=== PATIENT | male | born 1950 | race Caucasian/White ===

== ENCOUNTER 2020-09-02 10:22 | Outpatient (CLI) | payer MEDICARE, SELFPAY ==
--- NOTE | ~2020-09-02 | XR_ITS ---
EXAMINATION: XR hip BI wo pelvis EXAM DATE: 09/02/2020 10:46 INDICATION: Chronic bilateral hip pain. TECHNIQUE: Each hip imaged independently (separate right and also left hip) 'frog leg' and frontal p rojections for interpretation. There is no prior study for comparison. FINDINGS: No radiographic evidence of hip avascular necrosis. There is mild to moderate symmetric bi lateral hip primary osteoarthritis. 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 There are no acute f ractures or dislocations identified. There is no subcutaneous gas. The soft tissue is unremarkable. There are no radiopaque foreign bodies. IMPRESSION: Mild to moderate bilateral hip osteoarthritis. Reviewed, dictated and finalized at location B.
--- NOTE | ~2020-09-02 | XR_ITS ---
EXAMINATION: XR lumbar spine 2-3V EXAM DATE: 09/02/2020 10:46 INDICATION: Chronic low back pain. TECHNIQUE: Lumber spine frontal, lateral, lateral L5-S1 projections for interpretation. There is no prior study for comparison. FINDINGS: Mild to moderate diffuse lumbar disc disease. There is 2 to 3 mm anterolisthesis L4 on L5. No spondylolysis. There is 2-3 mm retrolisthesis L1 on L2 and L2 on L3. Moderate-sized lower thoracic bridging endplate osteophytes, diffuse idiopathic skeletal hyperostosis. Mild upper lumbar, moderate mid and lower lumbar facet arthropathy. Mild to moderate abdominal aortic and iliac arterial sclerot ic disease. Mild lumbar levoscoliosis. Sacrum, sacroiliac joints, sacral arcuate lines are intact. Pa raspinal soft tissue is unremarkable. There are no bony erosions identified. IMPRESSION: 1. Mild to moderate lumbar disc disease. 2. Moderate mid and lower lumbar facet arthropathy. 3. Mild levoscoliosis. Reviewed, dictated and finalized at location B.
== END 2020-09-02 10:23 | disposition home or self-care (01) ==
LOC: CHSIMG 10:24
PROVIDERS: PCP Internal Medicine; Visit Provider Internal Medicine
DX: M54.5 Low back pain (principal); M25.552 Pain in left hip; M25.551 Pain in right hip; M16.0 Bilateral primary osteoarthritis of hip; M47.816 Spondylosis without myelopathy or radiculopathy, lumbar region
CPT/HCPCS: 72100; 73521

== ENCOUNTER 2021-09-13 09:03 | Outpatient (CLI) | payer MEDICARE, SELFPAY ==
--- NOTE | ~2021-09-13 | MR_ITS ---
EXAMINATION: MR hip RT wo con DATE: 09/13/2021 10:35 INDICATION: Low back pain TECHNIQUE: Magnetic resonance imaging (MRI) of the right hip was performed without intravenous contr ast. Sequences included full-field axial PD-weighted FS FSE and T1-weighted FSE, coronal of the pelvi s with PD-weighted FS FSE, small field of view of the right hip with axial PD-weighted FS FSE, sagit chandni PD-weighted FS FSE and coronal PD weighted FS FSE. Additional radial T1-weighted FGR oriented ort hogonal to the acetabular rim were obtained for evaluation of the labrum. COMPARISON: Radiographs dated 09/02/2020 FINDINGS: Bones/labrum/cartilage: Bone alignment is normal. No fracture, avascular necrosis or pathologic marrow replacing process. Mo derate osteoarthritis at the right hip with partial thickness cartilage loss resulting in nonuniform joint space narrowing at the right hip. Disease greatest anterosuperiorly. There is scattered subarti cular cystic change along the along the anterosuperior and posterosuperior right acetabulum with more extensive edema-like subarticular marrow signal change at the right acetabulum. Small marginal osteo phytes about the right femoral head. There is diffuse degenerative tearing of the right acetabular la bryon. There is a large para labral cyst which appears to arise near the 12:00 position of the superol ateral labrum which measures 3.2 cm AP, 1.2 cm medial to lateral and 2.2 cm craniocaudal height. A se josseline mild osteoarthritis at the left hip which is not diagnostically evaluated on the larger images. Mild to moderate lumbar spondylosis. Fluid: Symmetric physiologic amount of fluid within both hip joints. Soft tissues: From the small lenticular T1 hyperintense intramuscular lipoma within the proximal left abductor long us muscle belly. Otherwise normal and symmetric muscle bulk and signal in the pelvis and visualized p roximal thighs. Mild tendinopathy without discrete tear at the bilateral gluteus medius tendons and b ilateral semitendinosus/biceps femoris tendons. The bilateral semimembranosus, remaining gluteal and bilateral iliopsoas tendons are normal. There is mild diverticulosis along the proximal sigmoid colon without adjacent inflammatory change to suggest diverticulitis. Limited evaluation of visceral organ s of the pelvis is otherwise unremarkable. No pathologically enlarged pelvic/inguinal lymphadenopath y. IMPRESSION: 1. Moderate right hip osteoarthritis with diffuse degenerative tearing of the right acetabular labrum and large associated para labral cyst. 2. Mild tendinopathy without discrete tear at the bilateral gluteus medius and proximal biceps femori s/semitendinosus tendons. Reviewed, dictated and finalized at location A. IMPRESSION: 1. Moderate right hip osteoarthritis with diffuse degenerative tearing of the r ight acetabular labrum and large associated para labral cyst. 2. Mild tendinopathy without discrete tear at the bilateral gluteus medius and proximal biceps femoris/semitendinosus tendons.
--- NOTE | ~2021-09-13 | MR_ITS ---
EXAMINATION: MR lumbar spine wo con DATE: 09/13/2021 10:35 INDICATION: Low back pain. TECHNIQUE: Magnetic resonance imaging (MRI) of the lumbar spine was performed without intravenous con trast. Sequences included sagittal T2-weighted FSE, sagittal T2-weighted FS FSE, sagittal T1-weighted FSE, and axial T2-weighted FSE. COMPARISON: Lumbar spine radiographs 09/02/2020 FINDINGS: There is 3 mm retrolisthesis of L1 on L2 and L2 on L3 and 3 mm anterolisthesis of L4 on L5. Vertebral body heights are normal. There is mildly decreased disc height from T12-L1 through L4-L5 a nd moderately decreased disc height at L5-S1 with endplate remodeling. Epidural lipomatosis is noted. The distal spinal cord signal intensity is normal. The conus medullaris is at T12-L1. The following disc levels are specifically discussed: T12-L1: The disc is bulging. There is moderate bilateral facet joint osteoarthritis. There is mild le ft neural foraminal stenosis. There is mild central canal stenosis. L1-L2: The disc is bulging and has an annular fissure. There is mild bilateral facet joint osteoarthr itis. There is mild bilateral neural foraminal stenosis. There is mild central canal stenosis. L2-L3: The disc is bulging and has an annular fissure. There is mild bilateral facet joint osteoarthr itis. There is mild right and moderate left neural foraminal stenosis. There is moderate central zohra l stenosis. L3-L4: The disc is bulging and has an annular fissure. There is severe bilateral facet joint osteoart hritis. There is mild right and moderate left neural foraminal stenosis. There is severe central zohra l stenosis. L4-L5: The disc is bulging and has an annular fissure. There is severe bilateral facet joint osteoart hritis. There is mild right and moderate left neural foraminal stenosis. There is severe central zohra l stenosis. L5-S1: The disc is bulging and has an annular fissure. There is severe bilateral facet joint osteoart hritis. There is mild right and moderate left neural foraminal stenosis. There is severe central zohra l stenosis. IMPRESSION: 1. Severe lumbar spondylosis. Reviewed, dictated and finalized at location B.
== END 2021-09-13 09:04 | disposition home or self-care (01) ==
LOC: CHSIMG 09:05
PROVIDERS: PCP Internal Medicine; Visit Provider Internal Medicine
DX: M54.16 Radiculopathy, lumbar region (principal); M25.551 Pain in right hip
CPT/HCPCS: 72148; 73721

== ENCOUNTER 2021-10-12 09:53 | Outpatient (RCR) | payer MEDICARE, SELFPAY ==
--- NOTE | 2021-10-12 10:57 | PTOPEVAL ---
Thank you for referring Cayetano Victor to [facility].? The patient is scheduled to be seen for therapy? ____x/week for ___ weeks. Please review, sign, date and return this plan of care SHELLI. I agree with and certify that the following plan of care is medically necessary. Referring Physician Date Admitting Provider: Attending Provider: Diana Villa MD Referring Provider: *PT Outpatient Evaluation Start: 10/12/21 10:08 Freq: Status: Active Protocol: Document 10/12/21 10:10 [facility] (Rec: 10/12/21 10:57 [facility] [id number]) Therapy Assessment Status Assessment Status Assessment Status Evaluation Evaluation Information Problem Diagnosis DJD/DDD lumbar spine, R hip pain Onset 09/26/21 Subjective Information patient reports he injured hi Query Text:As Reported By Patient/ hip about 9 years ago. he Family reports he has pain in the groin of the R hip. he reports his pain comes and goes. he reports some days he is able to go all day without pain, and then other days he has to apply pressure to his anterior hip to complete activities. he reports turning/twisting causes increased pain in the R hip. he reports he has symptoms in both of his feet, worse on the R. he reports he has tingling and numbness in his feet. he reports also in the L he will feel needle stick pain in the L foot. he reports he uses ice and heat and this helps. he has had an MRI of the hip and the lower back. Prior Level of Function Comments Additional Prior Level of Function he reports he is limited in Comments his walking distance and endurance most days. he reports he feels he is forcing himself to walk. he reports up to two years ago he was able to do some work on the side. he reports he was also climb ladders. he reports he also now has trouble walking on uneven surfaces and walking his cul [place] sac at home that
--- NOTE | 2021-12-07 06:49 | PCPTNOTE ---
Mr. Victor attended a total of 3 treatment sessions from 10/12/21 to 10/19/21. He has failed to return to the clinic and will be discharged from our care at this time. Refer to pt. last daily note for d/c status.
== END 2021-10-19 10:14 | disposition home or self-care (01) ==
LOC: CHSPT 09:53
PROVIDERS: PCP Internal Medicine; Visit Provider Internal Medicine
DX: M47.816 Spondylosis without myelopathy or radiculopathy, lumbar region (principal); M25.551 Pain in right hip; M54.16 Radiculopathy, lumbar region; M25.552 Pain in left hip
CPT/HCPCS: 97014; 97110; 97161; G0283

== ENCOUNTER 2021-12-27 10:48 | Outpatient (CLI) | payer MEDICARE, SELFPAY ==
--- NOTE | ~2021-12-27 | XR_ITS ---
XR hip RT min 2V 12/27/2021 11:13 Indication: Right hip pain after fall Procedure: 2 views right hip Comparison: 09/02/2020 Findings: There is moderate osteoarthritis of the right hip. No fracture, subluxation or dislocation. No significant soft tissue abnormality. No foreign bodies. Impression: 1: No acute fracture. 2: Moderate osteoarthritis of the right hip. Reviewed, dictated and finalized at location B. Impression: 1: No acute fracture. 2: Moderate osteoarthritis of the right hip.
== END 2021-12-27 10:49 | disposition home or self-care (01) ==
PROVIDERS: PCP Internal Medicine; Visit Provider Internal Medicine
DX: M25.551 Pain in right hip (principal); M16.11 Unilateral primary osteoarthritis, right hip
CPT/HCPCS: 73502

== ENCOUNTER 2022-02-14 09:49 | Outpatient (CLI) | payer MEDICARE, SELFPAY ==
--- NOTE | ~2022-02-14 | XR_ITS ---
EXAMINATION: XR lg joint inject/asp w image DATE: 02/14/2022 11:03 INDICATION: Right hip pain. TECHNIQUE: A time-out was performed to verify the patient's name, date of , and procedure to b e performed. The procedure including the risks, benefits, and alternatives was discussed with the pat ient. Risks discussed included bleeding and infection. The patient understood the risks and agreed to proceed. The skin overlying the right hip joint was prepped and draped in usual sterile fashion. A nesthetic was administered with 1% lidocaine subcutaneously. A 22 G needle was advanced under fluoro scopic guidance into the joint. Subsequently, injectate consisting of 5 mL 1% lidocaine, 1 mL 40 mg/ mL Kenalog, and 1 mL 4 mg/mL dexamethasone was instilled. The needle was removed and the entry site was cleaned and dressed. There were no immediate complications. Fluoroscopy exposure time was 0.1 mi nutes. The total number of images was 1. FINDINGS: Real-time fluoroscopy demonstrates the needle in the right hip joint. Patient's pain prior to procedure:8/10. Patient's pain following the procedure: 3/10. IMPRESSION: 1. Fluoroscopy guided right hip joint injection of local anesthetic and steroid with decrease in the patient's presenting pain. Reviewed, dictated and finalized at location A. [employer]
== END 2022-02-14 09:50 | disposition home or self-care (01) ==
PROVIDERS: PCP Internal Medicine; Visit Provider Internal Medicine
DX: M25.551 Pain in right hip (principal)
CPT/HCPCS: 20610; 77002; J1100; J3301

== ENCOUNTER 2022-07-25 10:01 | Outpatient (CLI) | payer MEDICARE, SELFPAY ==
[2022-07-25 10:16] LABS: Basophils Absolute Auto 0.03 K/mm3 (0.00-0.10); Basophils Percent Auto 0.4 % (0.0-1.0); Eosinophils Absolute Auto 0.34 K/mm3 (0.02-0.50); Eosinophils Percent Auto 4.8 % (1.0-6.0); Hematocrit 43.1 % (37.0-46.0); Hemoglobin 13.9 g/dL (12.4-15.3); Immature Granulocyte Absolute 0.04 K/mm3 (0.00-0.00); Immature Granulocyte Percent A 0.6 % (0.0-0.0); Lymphocytes Absolute Auto 1.29 K/mm3 (1.10-4.50); Lymphocytes Percent Auto 18.2 % (18.0-42.0); Mean Corpuscular HGB Conc 32.3 g/dL (32.0-36.0); Mean Corpuscular Hemoglobin 26.5 pg (27.0-31.0); Mean Corpuscular Volume 82.3 fL (78.0-102.0); Mean Platelet Volume 10.4 fl (8.7-11.0); Monocytes Absolute Auto 0.68 K/mm3 (0.10-0.90); Monocytes Percent Auto 9.6 % (2.0-11.0); Neutrophils Absolute Auto 4.7 K/mm3 (1.7-7.2); Neutrophils Percent Auto 66.4 % (50.0-70.0); Platelet Count Result 210 K/mm3 (150-420); Red Blood Count 5.24 M/mm3 (4.70-6.10); Red Cell Distribution Width 14.3 % (11.6-14.4); White Blood Count 7.1 K/mm3 (4.8-10.8)
--- NOTE | 2022-07-25 10:20 | ECG_ITS ---
Measurements Intervals Gilbert Rate: 55 P: 53 IA: 168 QRS: 8 QRSD: 89 T: -1 QT: 405 QTc: 390 Interpretive Statements SINUS BRADYCARDIA MINIMAL VOLTAGE CRITERIA FOR LVH, CONSIDER NORMAL VARIANT [MEETS CRITERIA IN ONE OF: R(aVL), S(V1), R(V5), R(V5/V6)+S(V1)] POSSIBLE INFERIOR MYOCARDIAL INFARCTION , PROBABLY OLD [30 ms Q WAVE IN II/aVF] ABNORMAL ECG NO PREVIOUS ECG AVAILABLE FOR COMPARISON Electronically Signed On 07-25-2022 14:27:24 CDT by Malcolm Beal M.D.
[2022-07-25 10:22] LABS: Appearance Urine Clear (Clear); Bilirubin Urine Negative (Negative); Blood Urine 1+ (Negative); Color Urine Yellow (Yellow); Glucose Urine UA Negative (Negative); Ketones Urine Negative (Negative); Leukocyte Esterase Ur Negative LEU/UL (Negative); Nitrate Urine Negative (Negative); Protein Urine Negative (Negative); Specific Grav Ur 1.025 (1.010-1.020); Urobilinogen Urine 0.2 mg/dL (0.2-1.0)
[2022-07-25 10:30] LABS: Add Urine Microscopic? YES; Bacteria Urine Rare /hpf; Mucus Urine Few /lpf; RBC Urine 0-2 /hpf (0-2); WBC Urine None seen /hpf (0-3)
[2022-07-25 10:42] LABS: Anion Gap 10 mmol/L (8-16); Blood Urea Nitrogen 21 mg/dL (7-18); Calcium 9.2 mg/dL (8.5-10.1); Carbon Dioxide 29 mmol/L (21-32); Chloride 103 mmol/L (98-108); Estimated Glomerular Filt Rate > 60; Glucose 97 mg/dL (70-99); Osmolality Calculated 297 mOsm/kg (285-295); Potassium 4.2 mmol/L (3.5-5.1); Sodium 142 mmol/L (136-145)
== END 2022-07-25 10:02 | disposition home or self-care (01) ==
LOC: CHSLAB 10:03
PROVIDERS: PCP Internal Medicine; Visit Provider Orthopaedic Surgery
DX: I10 Essential (primary) hypertension (principal); M17.11 Unilateral primary osteoarthritis, right knee; R94.31 Abnormal electrocardiogram [ECG] [EKG]; R00.1 Bradycardia, unspecified
CPT/HCPCS: 36415; 80048; 81001; 85025; 93005

== ENCOUNTER 2022-09-04 09:22 | Outpatient (CLI) | payer MEDICARE, SELFPAY ==
--- NOTE | 2022-09-04 09:28 | ECHO_ITS ---
Patient Info Name: Cayetano Victor Age: 72 years : 1950 Gender: Male HR: 56 bpm BP: 186 / 103 mmHg Heart Rhythm: Sinus Rhythm Technical Quality: Fair Exam Date: 09/04/2022 9:23 AM Exam Location: [facility] [place] Patient Status: Outpatient Admit Date: 09/04/2022 Staff Ordering Physician: Cristhian De La O DO Economic History Teacher: Joel Tidwell RDCS Attending Provider: Cristhian De La O DO Referring Physician: Jairon NAJERA; Exam Type: CA echo dop color flow w con Study Info Indications - dyspnea Complete two-dimensional, color flow and Doppler transthoracic echocardiogram is performed. Summary 1. Complete two-dimensional, color flow and Doppler transthoracic echocardiogram is performed. 2. Left ventricular chamber dimension is normal. 3. Left ventricular systolic function is normal, estimated at 60-65%. 4. There is mild concentric increased left ventricular wall thickness. 5. The left ventricular diastolic function is abnormal. 6. E/e' 12 is mildly elevated. 7. Left atrial chamber dimension is mildly enlarged. 8. There is mild aortic valve sclerosis. 9. There is mild aortic valve regurgitation. 10. There is trace tricuspid valve regurgitation. 11. No pulmonary hypertension, estimated pulmonary arterial systolic pressure is 21 mmHg. Left Ventricle E/e' 12 is mildly elevated. Left ventricular chamber dimension is normal. Left ventricular systolic function is normal, estimated at 60-65%. There is mild concentric increased left ventricular wall thickness. The left ventricular diastolic function is abnormal. Right Ventricle Right ventricular systolic function is normal and with normal TAPSE 2.7 cm. Right ventricular chamber dimension is normal. Left Atria Left atrial chamber dimension is mildly enlarged. Right Atria Right atrial chamber dimension is normal. Aortic Valve The aortic valve is trileaflet. There is mild aortic valve sclerosis. There is no aortic valve stenosis. There is mild aortic valve regurgitation. Pulmonic Valve There is no pulmonic regurgitation. Mitral Valve There is no mitral valve stenosis. There is no mitral valve regurgitation. Tricuspid Valve There is trace tricuspid valve regurgitation. No pulmonary hypertension, estimated pulmonary arterial systolic pressure is 21 mmHg. Pericardium/Pleural There is no pericardial effusion. Inferior Vena Cava Normal inferior vena cava with >50% collapse upon inspiration consistent with normal right atrial pressure, 5 mmHg. Aorta The aortic root size at the sinus of Valsalva is normal. Left Ventricular Outflow Tract Name Value Normal LVOT 2D LVOT Diameter 2.25 cm LVOT Doppler LVOT Peak Velocity 100.28 cm/s LVOT Peak Gradient 4 mmHg LVOT Mean Gradient 2 mmHg LVOT VTI 30.66 cm LVOT VTI/AV VTI Ratio 0.81 LVOT Stroke Volume 121.83 ml Pulmonic Valve Name Value Normal RVOT Doppler
== END 2022-09-04 09:23 | disposition home or self-care (01) ==
LOC: CHSIMG 09:23
PROVIDERS: PCP Internal Medicine; Visit Provider Internal Medicine Cardiovascular Disease
DX: R06.09 Other forms of dyspnea (principal); I35.1 Nonrheumatic aortic (valve) insufficiency
CPT/HCPCS: 93306; C8929

== ENCOUNTER 2022-09-18 07:26 | Outpatient (CLI) | payer MEDICARE, SELFPAY ==
--- NOTE | 2022-09-18 07:30 | EST_ITS ---
Patient Info Name: Cayetano Victor Age: 72 years : 1950 Gender: Male Ht: 65 in Wt: 231 lbs BSA: 2.24 m2 HR: 63 bpm BP: 144 / 71 mmHg Heart Rhythm: Sinus Rhythm Technical Quality: Excellent Exam Date: 09/18/2022 8:50 AM Exam Location: [facility] Patient Status: Outpatient Admit Date: 09/18/2022 Staff Ordering Physician: Cristhian De La O DO Attending Provider: Diana Villa MD Exercise Technologist: Mckenna Hoffman CRT Exercise Physician: Marlin Hamilton CEP Exam Type: CA stress luz maria w NM Study Info Indications PreOp - Dyspnea - A nuclear stress test was performed. History/Risk Factors Hypertension: Yes Dyslipidemia: Yes Tobacco Use: Current - Frequency Unknown History/Risk Factors Dyslipidemia. CAD. Hypertension. Summary 1. 1. Negative lexiscan stress test for ischemic ST changes by ECG criteria. 2. 2. Baseline hypertension. 3. 3. Nuclear scan to follow and will be reported separately. Please correlate with it. Protocol: LEXISCAN Stress ECG Details Stage: REST Duration (min): 1 min : 17 sec HR (bpm): 55 SBP (mmHg): 144 DBP (mmHg): 71 Stage: REST Duration (min): 1 min : 34 sec HR (bpm): 52 SBP (mmHg): 144 DBP (mmHg): 71 Stage: REST Duration (min): 1 min : 56 sec HR (bpm): 57 SBP (mmHg): 144 DBP (mmHg): 71 Stage: REST Duration (min): 2 min : 17 sec HR (bpm): 54 SBP (mmHg): 144 DBP (mmHg): 71 Stage: REST Duration (min): 2 min : 52 sec HR (bpm): 56 SBP (mmHg): 144 DBP (mmHg): 71 Stage: REST Duration (min): 7 min : 24 sec HR (bpm): 59 SBP (mmHg): 144 DBP (mmHg): 71 Stage: STAGE 1 Duration (min): 0 min : 16 sec HR (bpm): 58 SBP (mmHg): 144 DBP (mmHg): 71 Stage: RECOVERY Duration (min): 0 min : 43 sec HR (bpm): 71 SBP (mmHg): 144 DBP (mmHg): 71 Stage: RECOVERY Duration (min): 1 min : 43 sec HR (bpm): 78 SBP (mmHg): 144 DBP (mmHg): 71 Stage: RECOVERY Duration (min): 2 min : 43 sec HR (bpm): 79 SBP (mmHg): 133 DBP (mmHg): 73 Stage: RECOVERY Duration (min): 3 min : 43 sec HR (bpm): 76 SBP (mmHg): 135 DBP (mmHg): 75 Stage: RECOVERY Duration (min): 4 min : 43 sec HR (bpm): 74 SBP (mmHg): 135 DBP (mmHg): 75 Stage: RECOVERY Duration (min): 5 min : 43 sec HR (bpm): 73 SBP (mmHg): 148 DBP (mmHg): 79 Stage: RECOVERY Duration (min): 6 min : 4 sec HR (bpm): 76 SBP (mmHg): 148 DBP (mmHg): 79 Rest HR: 59 bpm Peak HR: 81 bpm Rest Sys BP: 144 mmHg Peak Sys BP: 148 mmHg Max Pred HR: 148 bpm % Max Pred HR: 55 % Target HR: 126 bpm Max RPP: 11,988 bpm*mmHg BP Response: Resting hypertension/appropriate response Termination Reason: Completed Protocol Cardiac Symptoms: Dyspnea Total Time: 0 min : 16 sec Rest Escobar BP: 71 mmHg Peak Escobar BP: 79 mmHg Total Dose: 0.4 mg Resting ECG Sinus bradycardia, delayed precordial R/S trans
--- NOTE | 2022-09-18 13:18 | P.NST_ITS ---
Nuclear Stress Test INDICATIONS Indications: Dyspnea PROCEDURE Procedure Performed: Myocardial Perf Spect-Multi Procedure: Patient underwent a lexiscan stress test and immediately was injected with 33.1 mCi of cardiolyte. Multiple tomographic images were obtained. These are of good quality. There is evidence of small size mild severity anterior perfusion defect and a small size, mild severity basal to mid lateral perfusion defect with stress imaging. A separate resting images were obtained after patient was injected with 10.5 mCi of cardiolyte. Multiple tomographic images were obtained. These are of good qu ality. There is evidence of small size mild severity anterior perfusion defect and a small size, mild severity basal to mid lateral perfusion defect with rest imaging. CONCLUSION Conclusion: 1. Myocardial perfusion imaging demonstrating fixed small size anterior and fixed small basal to mid lateral perfusion defects suggestive of attenuation artifacts. 2. No evidence of reversible ischemia. 3. Left ventriculogram demonstrates normal measured ejection fraction of 63% with no wall motion abnormalities. 4. TID 0.94 is normal.
== END 2022-09-18 07:27 | disposition home or self-care (01) ==
LOC: CHSIMG 07:27
PROVIDERS: PCP Internal Medicine; Visit Provider Internal Medicine Cardiovascular Disease
DX: R06.09 Other forms of dyspnea (principal)
CPT/HCPCS: 78452; 93017; A9502; J2785

== ENCOUNTER 2022-09-29 11:39 | Outpatient (CLI) | payer MEDICARE, SELFPAY ==
[2022-09-29 13:33] LABS: Basophils Absolute Auto 0.1 K/mm3 (0.0-0.1); Basophils Percent Auto 0.5 % (0.2-1.2); Eosinophils Absolute Auto 0.5 K/mm3 (0-0.3); Eosinophils Percent Auto 5.7 % (0-4.4); Hemoglobin 14.2 g/dL (14.0-18.0); Immature Granulocyte Absolute 0.02 K/mm3 (0.00-0.031); Immature Granulocyte Percent A 0.2 % (0-0.5); Lymphocytes Absolute Auto 1.61 K/mm3 (0.9-3.2); Lymphocytes Percent Auto 16.9 % (18.3-44.2); Mean Corpuscular HGB Conc 31.6 g/dl (32-36); Mean Corpuscular Hemoglobin 26.1 pg (26-34); Mean Corpuscular Volume 82.6 fl (80-100); Mean Platelet Volume 10.9 fl (7.4-10.4); Monocytes Absolute Auto 0.9 K/mm3 (0.1-0.6); Monocytes Percent Auto 9.4 % (2.6-8.5); Neutrophils Absolute Auto 6.4 K/mm3 (1.3-6.7); Neutrophils Percent Auto 67.3 % (45.5-73.1); Platelet Count Result 203 k/mm3 (150-375); Red Blood Count 5.45 M/mm3 (4.6-6.20); Red Cell Distribution Width 14.1 % (11.5-14.5); White Blood Count 9.5 K/mm3 (4.5-10.0)
[2022-09-29 13:40] LABS: Appearance Urine Clear (Clear); Bacteria Urine None Seen /hpf; Bilirubin Urine Negative (Negative); Blood Urine Trace (Negative); Color Urine Yellow (Yellow); Glucose Urine UA Negative (Negative); Ketones Urine Negative (Negative); Leukocyte Esterase Ur Negative LEU/UL (Negative); Nitrate Urine Negative (Negative); Non Pathogenic Casts 0-2; Protein Urine Negative (Negative); Specific Grav Ur 1.019 (1.001-1.035); Squamous Epithelial Cell Urine None seen /hpf (Few); Urine Cotinine NEGATIVE; Urobilinogen Urine 0.2 mg/dL (<2.0); WBC Urine 0-5 /hpf
[2022-09-29 13:41] LABS: Hemoglobin A1C 5.9 % (<5.7)
[2022-09-29 13:43] LABS: Albumin Level 4.7 g/dL (3.5-5.1); Anion Gap 7 mmol/L (8-16); Blood Urea Nitrogen 23 mg/dL (9-20); Calcium 9.6 mg/dL (8.4-10.2); Carbon Dioxide 30 mmol/L (22-30); Chloride 101 mmol/L (98-107); Estimated Glomerular Filt Rate > 60; Glucose 87 mg/dL (65-110); INR 0.9; Potassium 3.8 mmol/L (3.4-5.0); Prothrombin Time 12.9 Seconds (11.1-14.7); Sodium 138 mmol/L (137-145)
[2022-09-29 13:45] LABS: Partial Thromboplastin Time 30.7 SECONDS (22.3-36.8)
[2022-09-29 13:55] LABS: Add Urine Microscopic? YES
== END 2022-09-29 11:40 | disposition home or self-care (01) ==
PROVIDERS: PCP Internal Medicine; Visit Provider Orthopaedic Surgery
DX: M16.11 Unilateral primary osteoarthritis, right hip (principal); Z01.818 Encounter for other preprocedural examination
CPT/HCPCS: 80048; 80307; 81001; 82040; 83036; 85025; 85610; 85730; 86850; 86900; 86901; 87081

== ENCOUNTER 2022-10-11 01:16 | Day surgery (SDC) | payer MEDICARE, SELFPAY ==
[2022-09-29 11:52] VITALS: BMI 39.1
--- NOTE | 2022-09-29 12:31 | PC.NURSE ---
Report to the Outpatient Waiting Room, entrance under the green pavilion located off [facility], at time __0600 on date ___10/11/22____. Planned Procedure Time: __0730 . Time changes happen often and if your time is changed the preop area will call you the afternoon before. - You and your visitor will be asked to self-screen and do not enter if you have any COVID symptoms. - A mask is optional within the hospital at this time. Patients may have clear liquids (water, carbonated beverages, clear teas, apple juice) until 3 hours prior to surgery with a maximum of 20 ounces. - No food from midnight until time of surgery - Infants may have breast milk until 4 hours before surgery, infant formula 6 hours prior to surgery. - Children will be allowed to drink immediately following surgery. If applicable, please bring a bottle or sippy cup to assist with drinking. Juice, water, soda, and popsicles are readily available. For infants on formula, please bring formula the day of surgery. Pacifiers are allowed. Take the following medications with a SIP of water the morning of surgery: BREO INHALER,PAROXETINE_,HYDROCODONE IF NEEDED FOR PAIN DO NOT STOP ANY OF YOUR OTHER PRESCRIPTION MEDICATIONS PRIOR TO SURGERY ?EXCEPT THE FOLLOWING Medications to discontinue per physician __ASPIRIN PER DR BLANCHARD.ALL VITAMINS/SUPPPLEMENTS 3 DAYS PRE OP.LAST DOSE 10/08/22 Please no make-up, nail bulgarian, hairspray, perfume, deodorant, or body powder the day of surgery. No jewelry (including any body piercings) or valuables the day of surgery, leave them at home. Please take a shower or bath the night before, or the morning of, surgery with an antibacterial soap. Wear comfortable, loose fitting clothing. Children are encouraged to wear pajamas. - Jewelry must be removed prior to entering the operating room. Rings and piercings that are not removed may be cut off. - The hospital will not accept responsibility for valuables. - Please leave all valuables, including medications, at home the day of surgery. If you are going home after surgery, a licensed petroleum transport driver must drive you home. - NO public transportation without another adult if you receive anesthesia. - We recommend that an adult stay with you for 24 hours following discharge. - We also recommend that you do not drive, make important decision, drink alcoholic beverages, or take any drugs that were not prescribed by your health care provider for at least 24 hours after your discharge time. For Pediatric surgeries, we recommend two adults accompany the child home. Follow any additional instructions given to you from your surgeon. If you or anyone in your household have experienced Covid symptoms in the past week, please notify your surgeon or the nurse liaison at the phone number below for possible testing. VERBAL AND WRITTEN instructions given to __PATIENT AND SERJIO WILLSON and asked if any additional questions and then verbalized understanding. Patient advised to call surgeon office or pre surgery nurse liaison [phone] if any additional questions.
[2022-09-29 12:49] VITALS: BP 173/86; PULSE 55; RESP 18; TEMP 36.8; O2SAT 98
[2022-10-11] VITALS (14 sets, daily range): BP systolic 109–152; BP diastolic 60–91; PULSE 55–91; RESP 11–20; TEMP 35.9–37.1; O2SAT 90–100
--- NOTE | ~2022-10-11 | XR_ITS ---
EXAMINATION: XR hip RT 1V DATE: 10/11/2022 11:03 INDICATION: Postoperative evaluation following right total hip arthroplasty TECHNIQUE: Anteroposterior view of the right hip was obtained. COMPARISON: 10/06/2022 FINDINGS: Interval placement of a right total hip arthroplasty which appears well seated in near anatomic align ment. Expected subcutaneous gas in the postoperative bed. No fractures identified. IMPRESSION: 1. Right total hip arthroplasty, negative for postoperative purposes. Reviewed, dictated and finalized at location A.
[2022-10-11] MEDS: LACTATED RINGERS 1,000 ML 30 ML IV CONT ×2 (06:37→10:52)
--- NOTE | 2022-10-11 06:53 | WPDANESEPPF ---
Anes - Initial Pre Proc Eval Procedure: Operation Date: 10/11/22 07:30 Proposed Procedures p Right Total Hip Arthroplasty - Avelino Arce MD Date/Time: 10/11/22 06:53 Surgeon: Avelino Arce MD Pre Op Diagnosis: right hip djd Patient Data Age: 72 Gender: M Height: 1.65 m Weight: 106.7 kg Last Vital Signs Temp 36.1 C L 10/11/22 06:20 Pulse 55 L 10/11/22 06:20 Resp 16 10/11/22 06:20 BP 142/88 H 10/11/22 06:20 Pulse Ox 99 10/11/22 06:20 O2 Del Method Room Air 10/11/22 06:20 Allergies Allergy/AdvReac Type Severity Reaction Status Date / Time No Known Allergies Allergy Verified 10/11/22 06:10 Home Medications Medication Instructions Recorded Confirmed Type atorvastatin 20 mg tablet 20 mg PO HS 07/26/22 10/11/22 History celecoxib 200 mg capsule 200 mg PO DAILY 07/26/22 10/11/22 History coenzyme Q10 10 mg capsule (Co 10 mg PO DAILY 07/26/22 10/11/22 History Q-10) metoprolol succinate 100 mg 100 mg PO HS 07/26/22 10/11/22 History tablet,extended release 24 hr montelukast 10 mg tablet 10 mg PO DAILY 07/26/22 10/11/22 History multivitamin 1 tablet PO DAILY 07/26/22 10/11/22 History zolpidem 10 mg tablet 10 mg PO HS 07/26/22 10/11/22 History losartan 50 mg-hydrochlorothiazide 1 tablet PO DAILY 08/14/22 10/11/22 History 12.5 mg tablet fluticasone furoate 100 1 inh inhalation DAILY 09/29/22 10/11/22 History mcg-vilanterol 25 mcg/dose inhalation powder (Breo Ellipta) fluticasone propionate 50 1 spray intranasal DAILY 09/29/22 10/11/22 History mcg/actuation nasal spray,suspension indapamide 1.25 mg tablet 1.25 mg PO DAILY HYPERTENSION 09/29/22 10/11/22 History paroxetine HCl 20 mg tablet 20 mg PO DAILY 09/29/22 10/11/22 History aspirin 325 mg tablet,delayed 325 mg PO BID DVT PROPHYLAXIS #40 10/12/22 Rx release tabs hydrocodone 7.5 mg-acetaminophen 1 tablet PO Q8H PRN pain #30 tabs 10/12/22 Rx 325 mg tablet Patient hx anesthesia problems: none Family hx anesthesia problems: none Results Review: All pre-operative results and documents have been reviewed as part of the pre-operative evaluation. PMFSH Past Medical History Medical History (Updated 10/10/22 @ 18:12 by Foster Baca DO) CAD (coronary artery disease) Dyslipidemia Hypertension Surgical History Surgical History (Updated 10/10/22 @ 18:12 by Foster Baca DO) H/O shoulder surgery History of coronary artery stent placement 2014 Hx of arthroscopy of left knee 2016 Family History Family History Unknown Depression Hyperlipidemia Other Cerebrovascular accident Family history of arthritis Family history of malignant neoplasm Hypertension Social History Social History Smoking packs per day: 1 Smoking cigarettes per day: 20.0 Years smoked: 30 Smoking pack-years: 30.00 Smoking status: Former smoker Tobacco type: cigarettes and smokeless tobacco Smokeless tobacco user: chewing tobacco Smoking end date: 04/02/87 Additional smoking assessment comments: CHEWING TOBACCO LAST USED 07/31/22. 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
[2022-10-11] MEDS: TRANEXAMIC ACID 1,000MG/ISO100 1,000 MG/100 ML BAG 200 MG IVPB (07:02)
--- NOTE | 2022-10-11 07:15 | WPDHPUPDATE1 ---
History and Physical Update Update Date/Time: 10/11/22 07:15 History and Physical has been reviewed, including an updated exam of the patient. There are NO changes in the patient's condition. Risks, benefits, and alternatives have been discussed and questions answered. Patient agrees to proceed with procedure.
[2022-10-11] MEDS: ceFAZolin 2 GM/D5W 50 ML 2 GM/50 ML BAG IVPB ×3 (07:31→22:23)
[2022-10-11] MEDS: TRANEXAMIC ACID 1,000 MG/10 ML AMPUL 1000 MG IV PUSH (09:50)
--- NOTE | 2022-10-11 10:56 | W.PM.PROC2 ---
Procedure Note - Detailed Date of Procedure 10/11/22 Pre-op Diagnosis right hip djd Post-op Diagnosis Same Procedure Performed R LENORA Surgeon Avelino Arce MD Anesthesia General Description of Procedure THE PATIENT WAS TAKEN TO THE OPERATING ROOM IN STABLE CONDITION AND WAS PLACED IN THE LATERAL DECUBITUS AND THE RIGHT LOWER EXTREMITY WAS PREPPED AND DRAPED IN THE STERILE FASHION. INCISION WAS MADE IN THE POSTERIOR LATERAL SIDE OF THE HIP, DOWN TO THE FASCIA LAYER. THE FASCIA WAS INCISED. THE HIP WAS EXPOSED. THE SHORT EXTERNAL ROTATORS WERE EXPOSED. THE SCIATIC NERVE WAS IDENTIFIED. INCISION WAS MADE THROUGH THE SHORT EXTERNAL ROTATORS AND THE CAPSULE OF THE HIP JOINT. THE HIP WAS DISLOCATED. AN OSTEOTOMY WAS MADE TO THE FEMORAL NECK ABOUT 1 CM PROXIMAL TO THE LESSER TROCHANTER. THE ACETABULUM WAS EXPOSED. THERE WAS SEVERE DJD SEEN. BEGINNING WITH A 46 REAMER THE ACETABULUM WAS REAMED TO 53 MM. A 53 MM TRIAL WAS PLACED IN 35 DEG OF ABDUCTION AND ANTEVERSION WAS IN ALIGNMENT WITH THE TRANS ACETABULAR LIGAMENT. THE FIT WAS EXCELLENT. THE TRIAL WAS REMOVED. A 54 MM BIOMET G7 COMPONENT WAS THEN TAPPED IN TO PLACE IN 35 DEG OF ABDUCTION AND ANTEVERSION IN ALIGNMENT WITH THE TRANSVERSE ACETABULAR LIGAMENT. THE FIT WAS EXCELLENT. THE ACETABULAR LINER WAS PLACED AND CHECKED FOR STABILITY. NEXT THE FEMUR WAS PREPARED WITH INITIAL CANAL FINDER THEN SEQUENTIAL BROACHING WITH A TAPERLOC HIP SYSTEM, UNTIL A 11 BROACH FIT WELL IN 15 OF ANTEVERSION. A +3 STANDARD OFFSET NECK WITH 36 MM HEAD TRIAL WAS PLACED. THE SHUCK TEST WAS EXCELLENT AND THE STABILITY IN FLEXION AND ROTATION WAS EXCELLENT. LEG LENGTHS WERE GROSSLY EQUAL. TRIALS WERE REMOVED. A BIOMET TAPERLOC 11 STEM WAS PLACED WITH A STANDARD OFFSET NECK. THE FIT WAS EXCELLENT IN 15 DEG OF ANTEVERSION. A +3 CERAMIC 36 MM FEMORAL HEAD WAS PLACED. THE HIP WAS TRIALED AND THE STABILITY WAS EXCELLENT WERE THE LEG LENGTHS AND THE SHUCK TEST. THE WOUND WAS IRRIGATED WITH STERILE BETADINE AND WATER FOR 3 MIN. THEN WASHED AGAIN. THE SCIATIC NERVE WAS IDENTIFIED AGAIN. THE CAPSULE AND THE EXTERNAL ROTATORS WERE APPROXIMATED WITH NUMBER 1 VICRYL. THE FASCIA WITH No 2 QUIL AND THE SUB CUTANEOUS LAYER WITH 2-0 ABSORBABLE SUTURE AND A RUNNING 3-0 SUBCUTICULAR STITCH FOR THE SKIN. DERMABOND WAS PLACED AND STERILE DRESSING WAS APPLIED. PATIENT WAS PLACED BACK ON TO THE SUPINE POSITION AND WAS EXTUBATED Estimated Blood Loss 1,000 Complications No immediate complications Condition Stable Disposition PACU
[2022-10-11] MEDS: fentaNYL CITRATE INJ (*CRX) 100 MCG/2 ML VIAL 25 MCG IV PUSH ×8 (11:02→11:50)
[2022-10-11] MEDS: HYDROmorphone HCL INJ (*CRX) 1 MG/ML SYR 0.5 MG IV PUSH ×2 (11:57→12:07)
--- NOTE | 2022-10-11 12:54 | ADMGEN ---
This patient, Cayetano Victor, was admitted to 3 [facility] Surg Room 300-01. Patient/family oriented to hospital policies and general routines including ID bracelet, bed and alarms, visiting hours, pain management, procedures, bathroom and other care routines, personal items, smoking policy, room service/diet, and visiting hours. Information on how to activate the Rapid Response Team has been discussed. Patient/Family are encouraged to report perceived risks to care and to ask questions if they do not understand what they are told or what they should do.
[2022-10-11] MEDS: HYDROcodone/acetaminophen (*CRX) 7.5-325 MG TABLET 2 TAB PO ×2 (13:27→20:20)
--- NOTE | 2022-10-11 16:07 | PCPTNOTE ---
On 10/11/22, the student, EDIL Salgado, provided care and completed [facility] documentation on this patient. I have reviewed the student's documentation and agree with the findings.
[2022-10-11] MEDS: SENNA/DOCUSATE SODIUM TABLET 2 TAB PO (17:25)
[2022-10-11] MEDS: FAMOTIDINE 20 MG TABLET PO (20:08)
[2022-10-11] MEDS: ASPIRIN 325 MG ENTERIC TABLET PO (20:08)
[2022-10-11] MEDS: ZOLPIDEM TARTRATE (*CRX) 5 MG TABLET 10 MG PO (20:10)
[2022-10-12 02:11] VITALS: BP 132/68; PULSE 96; RESP 18; TEMP 38.2; O2SAT 96
[2022-10-12] MEDS: ONDANSETRON INJ 4 MG/2 ML VIAL IV PUSH (02:14)
[2022-10-12 02:57] VITALS: TEMP 36.8
[2022-10-12] MEDS: DEXTROSE 5%/0.45% SOD CHL 1,000 ML 80 ML IV CONT (04:15)
[2022-10-12] MEDS: ceFAZolin 2 GM/D5W 50 ML 2 GM/50 ML BAG IVPB (06:12)
[2022-10-12 06:37] LABS: Hematocrit 33.8 % (42.0-52.0); Hemoglobin 10.5 g/dL (14.0-18.0); Mean Corpuscular HGB Conc 31.1 g/dl (32-36); Mean Corpuscular Hemoglobin 25.7 pg (26-34); Mean Corpuscular Volume 82.8 fl (80-100); Mean Platelet Volume 11.2 fl (7.4-10.4); Platelet Count Result 152 k/mm3 (150-375); Red Blood Count 4.08 M/mm3 (4.6-6.20); Red Cell Distribution Width 14.1 % (11.5-14.5); White Blood Count 8.3 K/mm3 (4.5-10.0)
[2022-10-12 06:48] LABS: Anion Gap 5 mmol/L (8-16); Blood Urea Nitrogen 44 mg/dL (9-20); Carbon Dioxide 28 mmol/L (22-30); Chloride 99 mmol/L (98-107); Estimated CRCL calculation 45 ml/min; Estimated Glomerular Filt Rate 46; Glucose 151 mg/dL (65-110); Potassium 4.3 mmol/L (3.4-5.0); Sodium 132 mmol/L (137-145)
[2022-10-12 07:32] LABS: Band Neutrophils Percent 31 % (0-6); Eosinophils Absolute Manual 0.08 K/mm3 (0.02-0.5); Eosinophils Percent Manual 1 % (0-4); Lymphocytes Absolute Manual 0.41 K/mm3 (1.1-4.5); Monocytes Absolute Manual 0.91 K/mm3 (0.1-0.90); Monocytes Percent Manual 11 % (3-9); Neutrophils Absolute Manual 6.88 K/mm3 (1.3-6.7); Neutrophils Percent Manual 52 % (46-73); Total Cells Counted 100
[2022-10-12 07:33] LABS: Giant Platelets Present; Platelet Clumps Present; Platelet Estimate Adequate (Adequate)
[2022-10-12 07:34] LABS: Schistocytes None Seen (NORMAL)
[2022-10-12 08:00] VITALS: BP 100/46; PULSE 88; RESP 20; TEMP 36.5; O2SAT 97
[2022-10-12] MEDS: polyethylene glycoL 3350 17 GM POWD.PACK PO (08:42)
[2022-10-12] MEDS: ATORVASTATIN 20 MG TABLET PO (08:42)
[2022-10-12] MEDS: SENNA/DOCUSATE SODIUM TABLET 2 TAB PO (08:42)
[2022-10-12] MEDS: ASPIRIN 325 MG ENTERIC TABLET PO (08:42)
[2022-10-12] MEDS: CELECOXIB 200 MG CAPSULE PO (08:42)
[2022-10-12] MEDS: FAMOTIDINE 20 MG TABLET PO (08:42)
[2022-10-12] MEDS: MONTELUKAST SODIUM 10 MG TABLET PO (08:42)
[2022-10-12 08:43] VITALS: PULSE 88
[2022-10-12] MEDS: LOSARTAN POTASSIUM 50 MG TABLET PO (08:43)
[2022-10-12] MEDS: PARoxetine 20 MG TABLET PO (08:43)
[2022-10-12] MEDS: METOPROLOL SUCCINATE EXT REL 100 MG TABCR PO (08:43)
[2022-10-12] MEDS: hydroCHLOROthiazide 12.5 MG CAPSULE PO (08:43)
[2022-10-12] MEDS: HYDROcodone/acetaminophen (*CRX) 7.5-325 MG TABLET 1 TAB PO (09:02)
--- NOTE | 2022-10-12 13:07 | PM.PNORT ---
Progress Note: A&P Assessment and Plan (1) Degenerative joint disease (DJD) of hip: Qualifiers: Laterality: right Osteoarthritis type: primary Qualified Code(s): M16.11 - Unilateral primary osteoarthritis, right hip Code(s): M16.9 - Osteoarthritis of hip, unspecified Status: Acute Assessment and Plan: POD 1 DOING WELL. GOOD PROGRESS WITH PT. HGB IS STABLE OK TO DC HOME WITH HOME PT AND NURSING. F/U IN 3 WEEKS. Subjective Subjective Date/Time Seen: 10/12/22 13:07 Interval history: POD 1 DOING WELL. NO CALF PAIN Exam Extrem: Other: VSS AFEBRILE DRESSING DRY NV INTACT NEG HOMANS SIGN CALF SOFT NON TENDER. Objective Data Vital Signs Vital Signs: Vital Signs - 24 hr 10/11/22 14:13 10/11/22 13:35 10/11/22 14:35 Temperature 36.0 C L 36.3 C L Pulse Rate 86 91 Respiratory Rate 18 20 Blood Pressure 134/72 121/79 Pulse Oximetry 92 95 Oxygen Delivery Room Air 10/11/22 19:29 10/12/22 02:11 10/12/22 02:57 Temperature 37.1 C 38.2 C H 36.8 C Pulse Rate 90 96 Respiratory Rate 18 18 Blood Pressure 109/60 132/68 Pulse Oximetry 90 96 Oxygen Delivery 10/12/22 08:00 10/12/22 08:43 Temperature 36.5 C Pulse Rate 88 88 Respiratory Rate 20 Blood Pressure 100/46 L Pulse Oximetry 97 Oxygen Delivery Intake/Output Intake/Output: Intake & Output 10/09/22 10/10/22 10/11/22 10/12/22 23:59 23:59 23:59 23:59 Intake Total 1140 530 Output Total 425 Balance 1140 105 Meds/Results Medications: Active Medications Generic Name Dose Route Start Last Admin Trade Name Freq PRN Reason Stop Dose Admin Acetaminophen 650 mg 10/11/22 12:26 Acetaminophen 325 Mg Tablet PO Q6H PRN Mild Pain (1-3) or Fever Hydrocodone Bitart/Acetaminophen 1 tab 10/11/22 12:26 10/12/22 09:02 Hydrocodone/Acetaminophen (*Crx) 7.5-325 Mg Tablet PO 1 tab Q3H PRN Administration Pain Rated 4-6 Hydrocodone Bitart/Acetaminophen 2 tab 10/11/22 12:26 10/11/22 20:20 Hydrocodone/Acetaminophen (*Crx) 7.5-325 Mg Tablet PO 2 tab Q6H PRN Administration Pain Rated 7-10 Aspirin 325 mg 10/11/22 21:00 10/12/22 08:42 Aspirin 325 Mg Enteric Tablet PO 325 mg Q12HR WILEY Administration Atorvastatin Calcium 20 mg 10/12/22 09:00 10/12/22 08:42 Atorvastatin 20 Mg Tablet PO 20 mg DAILY WILEY Administration Celecoxib 200 mg 10/12/22 09:00 10/12/22 08:42 Celecoxib 200 Mg Capsule PO 200 mg DAILY WILEY Administration Diazepam 5 mg 10/11/22 12:26 Diazepam (*Crx) 5 Mg Tablet PO Q6H PRN Anxiety/Muscle Spasm Famotidine 20 mg 10/11/22 21:00 10/12/22 08:42 Famotidine 20 Mg Tablet PO 20 mg Q12HR WILEY Administration Hydrochlorothiazide 12.5 mg 10/12/22 09:00 10/12/22 08:43 Hydrochlorothiazide 12.5 Mg Capsule PO 11/11/22 08:59 12.5 mg DAILY WILEY Administration Hydroxyzine HCl 50 mg 10/11/22 12:26 Hydroxyzine Hcl 25 Mg Tablet PO Q4H PRN Itching Dextrose/Sodium Chloride 1,000 mls @ 80 mls/hr 10/11/22 12:26 10/12/22 04:15 Dextrose 5% Sodium Chloride 0.45% IV CONT 80 mls/hr .[id number] WILEY Administration Indapamide 1.25 mg 10/11/22 12:26 Indapamide 1.25 Mg Tablet PO PRN PRN IF SBP > 140 Losartan Potassium 50 mg 10/12/22 09:00 10/12/22 08:43 Losartan Potassium 50 Mg Tablet PO 11/11/22 08:59 50 mg DAILY WILEY Administration Metoprolol Succinate 100 mg 10/12/22 09:00 10/12/22 08:43 Metoprolol Succinate Ext Rel 100 Mg Tabcr PO 100 mg DAILY WILEY Administration Montelukast Sodium 10 mg 10/12/22 09:00 10/12/22 08:42 Montelukast Sodium 10 Mg Tablet PO 10 mg DAILY WILEY Administration Naloxone HCl 0.1 mg 10/11/22 12:26 Naloxone Hcl 0.4 Mg/Ml Vial IV PUSH Q2M PRN Opiate Reversal Ondansetron HCl 4 mg 10/11/22 12:26 10/12/22 02:14 Ondansetron Inj 4 Mg/2 Ml Vial IV PUSH 4 mg Q4H PRN Administration Naus
--- NOTE | 2022-10-12 13:09 | PM.DS ---
DS: Admitting Diagnosis Discharge Date 10/12/22 Admitting Diagnosis RIGHT TOTAL HI REPLACEMENT DS: Discharge Diagnosis Discharge Diagnosis (1) Degenerative joint disease (DJD) of hip: Qualifiers: Osteoarthritis type: primary Laterality: right Qualified Code(s): M16.11 - Unilateral primary osteoarthritis, right hip Code(s): M16.9 - Osteoarthritis of hip, unspecified Status: Acute DS: Summary Hospital Course Reason for hospitalization: RIGHT LENORA Hospital Course: PATIENT WAS ADMITTED S/P TOTAL HIP ARTHROPLASTY FOR POSTOPERATIVE MEDICAL MANAGEMENT, PAIN CONTROL AND MOBILIZATION WITH PHYSICAL AND OCCUPATIONAL THERAPY. THE PATIENT PROGRESSED WELL WITH PT/OT. LABS AND VITALS REMAINED STABLE AND PAIN WELL CONTROLLED. THE PATIENT HAS BEEN CLEARED TO BE DISCHARGED HOME. FOLLOW UP APPOINTMENT SCHEDULED. DISCHARGE INSTRUCTIONS DISCUSSED AT LENGTH WITH THE PATIENT. MEDICATIONS REVIEWED. Status at Discharge Cognitive/behavioral status at discharge: STABLE Functional status at discharge: uses cane/walker Time Spent with Patient Time attestation: Total time spent providing and/or coordinating discharge services: DS: Data Data Completed and Pending Labs on day of discharge: Labs from last 24 hours 10/12/22 05:40 WBC 8.3 RBC 4.08 L Hgb 10.5 L D Hct 33.8 L MCV 82.8 MCH 25.7 L MCHC 31.1 L RDW 14.1 Plt Count 152 MPV 11.2 H Immature Gran % (Auto) Not Reportable Neut % (Auto) Not Reportable Lymph % (Auto) Not Reportable [place] % (Auto) Not Reportable Eos % (Auto) Not Reportable Baso % (Auto) Not Reportable Lymph # (Auto) Not Reportable [place] # (Auto) Not Reportable Eos # (Auto) Not Reportable Baso # (Auto) Not Reportable Abs Immat Gran (auto) Not Reportable Absolute Neuts (auto) Not Reportable Absolute Nucleated RBC Not Reportable Total Counted 100 Neutrophils % (Manual) 52 Band Neutrophils % 31 H Lymphocytes % (Manual) 5.0 L Monocytes % (Manual) 11 H Eosinophils % (Manual) 1 Nucleated RBC % Not Reportable Abs Neuts (Manual) 6.88 H Abs Lymphs (Manual) 0.41 L Abs Monocytes (Manual) 0.91 H Absolute Eos (Manual) 0.08 Platelet Estimate Adequate Clumped Platelets Present Giant Platelets Present Schistocytes None seen Sodium 132 L Potassium 4.3 Chloride 99 Carbon Dioxide 28 Anion Gap 5 L BUN 44 H D Creatinine 1.50 H Estim Creat Clear Calc 45 Estimated GFR 46 L Glucose 151 H Calcium 8.0 L Procedures/Treatments: R LENORA Discharge Plan Discharge Patient Disposition: Home, Self-Care Discharge Instructions: Post Op Total Hip Replacement Instructions Dr. Avelino Arce [phone] Your dressing will be changed prior to your discharge. You will be sent home with one additional dressing to be changed on post op day 7 by the home health RN. You may remove the dressing on post op day 14. Your incision was closed with dermabond, allow the dermabond to fall off naturally once your dressing is removed. Do not pull at the dermabond or disrupt incision healing. You may shower with your dressing but do not submerge in a bath tub. Do not drive or operate machinery until you are released by Dr. Arce. Do not walk without a walker for any reason until you are released by Dr. Arce. Continue to apply ice to the hip intermittently for additional pain relief. Protect your skin with a towel or pillow case. Continue to follow strict total hip replacement precautions. Your first post op appointment was sent to you via mail preoperatively. If you have any questions or are unable to make your appointment, please contact our office for scheduling questions. Your medications have been sent to your pharmacy. You have been sent home with pain medication. Please pick up operator an over the counter stool softener to prevent constipation due to narcotic use. Please keep this in mind during your postoperative recovery. If you are not experiencing regular bowel movements, ple
[2022-10-12 13:39] VITALS: BP 104/51; PULSE 77; RESP 18; TEMP 36.3; O2SAT 97
== END 2022-10-12 16:33 | disposition home health service (06) ==
LOC: ANHSURGERY 06:01 → ANH3MEDSUR 12:32
PROVIDERS: PCP Internal Medicine; Visit Provider Orthopaedic Surgery
PROC: (CPT 27130; principal; 2022-10-11 07:30)
DX: M16.11 Unilateral primary osteoarthritis, right hip (principal); I10 Essential (primary) hypertension; I25.10 Atherosclerotic heart disease of native coronary artery without angina pectoris; E78.5 Hyperlipidemia, unspecified; Z79.82 Long term (current) use of aspirin; Z95.5 Presence of coronary angioplasty implant and graft; Z87.891 Personal history of nicotine dependence; E66.9 Obesity, unspecified; Z68.39 Body mass index [BMI] 39.0-39.9, adult
CPT/HCPCS: 27130; 36415; 73501; 80048; 80307; 81001; 82040; 83036; 85025; 85610; 85730; 86850; 86900; 86901; 87081; 97110; 97116; 97161; 97165; 97530; 97535; A9270; C1776; J0171; J0690; J1100; J1170; J1885; J2270; J2405; J2704; J2710; J2795; J3010; J7120

== ENCOUNTER 2022-11-07 14:23 | Outpatient (RCR) | payer MEDICARE, SELFPAY ==
--- NOTE | 2022-11-07 14:59 | PTOPEVAL1 ---
Assessment and note entered by Davi Ruiz Evaluation Information Assessment Status Evaluation Diagnosis s/p right LENORA Onset 10/11/22 Subjective Information Pt. reports he underwent hip replacement on . He states that he went through HH therapy after surgery. He states that he still has some weakness in the right leg. Pt. reports that he was very active before developing hip pain. He states that he has returned to driving. He states that he still notices a slight limp. He enjoys completing his yard work, but has been unable since surgery. he reports that his goal for therapy is to return to walking normal and improve his hip strength. Reported Pain Level Pain Score 2: Self Report Assessment PT Clinical Summary Pt. is a 72 year old male who enters the clinic post right LENORA. He presents with impaired gait, l .e. weakness and functional decline. Continued skilled PT is indicated in order to improve these areas to allow the pt. to be able to complete all IADL's as he did prior to injury. Plan of Care Interventions Electrical Stimulation,Gait Training,Hot Pack/Cold Pack,Manual Therapy,Neuro Re-education,Patient/ Caregiver Educati,Therapeutic Activities, Therapeutic Exercise PT Services Indicated Yes Treatment Frequency and 2x/week x 10 visits Duration These treatments will address the objective and functional deficits as defined above. The patient will be advanced safely and appropriately in order for the patient to progress towards his/her prior level of function. Additional exercises will be introduced and as well as a comprehensive home exercise program upon discharge, if needed, ?to ensure carryover of functional gains achieved in the clinic. This treatment plan has been reviewed and agreement upon by the patient.
--- NOTE | 2022-11-07 15:13 | OPREHPOC ---
Outpatient Therapy Plan of Care This is a Multidisciplinary Plan of Care that may contain components documented by all disciplines (PT, OT, and ST.) PT Problem 1 PT Problem #1 Knowledge Deficit PT Goal 1 Goal Pt. will be independent with a HEP addressing l.e. strength and mobility. Target Visit 2 PT Problem 2 PT Problem #2 Impaired Gait PT Goal 1 Goal Pt. will ambulate without noted trendelenburg for the complete 6 minute walk test for greater than a distance of 1000'. Target Visit 10 PT Problem 3 PT Problem #3 Impaired Endurance PT Goal 1 Goal Pt. will report being able to participate in yard work without limitation for duration of 1 hour or greater
== END 2022-11-21 23:59 | disposition home or self-care (01) ==
LOC: CHSPT 14:23
PROVIDERS: Visit Provider Orthopaedic Surgery
DX: Z47.1 Aftercare following joint replacement surgery (principal); Z96.641 Presence of right artificial hip joint
CPT/HCPCS: 97014; 97110; 97112; 97161; G0283

== ENCOUNTER 2022-11-22 07:22 | Outpatient (CLI) | payer MEDICARE, SELFPAY ==
--- NOTE | ~2022-11-22 | CT_ITS ---
EXAMINATION: CT abdomen pelvis wo/w con DATE: 11/22/2022 08:45 INDICATION: Hematuria TECHNIQUE: Computed tomography (CT) of the abdomen and pelvis was performed without and with 100 cc O mnipaque 350 intravenous contrast. The dose-length product was 2875.21 mGy-cm. Automated exposure con trol and iterative reconstruction technique were employed. COMPARISON: CT dated 10/05/2006. FINDINGS: Chronic dependent atelectasis. Calcified granuloma right middle lobe. Heart size normal. No significant pleural or pericardial effusion. Fatty infiltration of the liver. There is mild chronic infiltration of the mesenteric fat with mesenteric lymph nodes, without significant change from prior examination. Colonic diverticulosis without evidence for diverticulitis. Nonobstructive bowel gas pa ttern. The spleen, pancreas, adrenal glands are unremarkable. There are bilateral renal cysts. No ann marie al stones or hydronephrosis. Ureters are normal in course and caliber. Bladder is unremarkable. Small fat-containing umbilical hernia. No abnormal pelvic masses or fluid collections. There is a right to chandni hip arthroplasty. There is moderate lumbar and lower thoracic spondylosis. IMPRESSION: 1. No acute abdominal abnormality. Reviewed, dictated and finalized at location B.
[2022-11-22 07:54] LABS: Estimated Glomerular Filt Rate > 60
== END 2022-11-22 07:23 | disposition home or self-care (01) ==
LOC: CHSIMG 07:23
PROVIDERS: PCP Internal Medicine; Visit Provider Internal Medicine
DX: R31.9 Hematuria, unspecified (principal)
CPT/HCPCS: 74178; Q9967

== ENCOUNTER 2022-11-24 14:28 | Outpatient (CLI) | payer MEDICARE, SELFPAY ==
--- NOTE | ~2022-11-24 | CT_ITS ---
EXAMINATION: CT femur RT wo con DATE: 11/24/2022 14:51 INDICATION: Torn quadriceps muscle at the right thigh TECHNIQUE: High resolution computed tomography (CT) of the right thigh/femur was performed without in travenous contrast. Additional sagittal and coronal reconstructions were performed. Automated exposur e control and iterative reconstruction technique were employed. The dose-length product was 1065.71 mGy-cm. COMPARISON: None FINDINGS: Right total hip and total knee arthroplasty with patellar resurfacing, both which appear well-seated in near-anatomic alignment. No fracture. Metallic streak artifact obscures the bone and soft tissues in the immediate vicinity of the arthroplasty components. There is a small lenticular fluid collectio n measuring approximately 8 cm craniocaudal and 3.5 x 1.5 cm in maximal transaxial dimensions along t he subcutaneous surgical scar overlying the proximal right femur is likely representing a residual po stoperative seroma. Physiologic amount fluid at the bilateral hip joints. Small amount of enthesopath ic calcification at the right ischial tuberosity origin of the proximal right hamstring tendons. Also send tendons of the right thigh. Otherwise unremarkable although sensitivity is lower than with MRI. Scattered small amounts of calcified atherosclerotic plaque along the right femoral and popliteal ar teries. IMPRESSION: 1. Expected appearance of right total hip and total knee arthroplasties with small residual likely po stoperative subcutaneous seroma along a surgical scar overlying the proximal right femur. Reviewed, dictated and finalized at location A. IMPRESSION: 1. Expected appearance of right total hip and total knee arthroplasties with sm all residual likely postoperative subcutaneous seroma along a surgical scar ove rlying the proximal right femur.
== END 2022-11-24 14:29 | disposition home or self-care (01) ==
LOC: CHSIMG 14:32
PROVIDERS: PCP Internal Medicine; Visit Provider Internal Medicine
DX: S76.111A Strain of right quadriceps muscle, fascia and tendon, initial encounter (principal); Z96.641 Presence of right artificial hip joint; Z96.651 Presence of right artificial knee joint; L76.34 Postprocedural seroma of skin and subcutaneous tissue following other procedure
CPT/HCPCS: 73700

== ENCOUNTER 2023-03-07 13:36 | Outpatient (CLI) | payer MEDICARE, SELFPAY ==
--- NOTE | ~2023-03-07 | XR_ITS ---
XR sacroiliac jt inj w imag BI INDICATION: Lumbar radiculopathy with low back pain TECHNIQUE: After discussing the procedure with the patient, including the possible risks, complicatio ns, and benefits, oral consent was obtained. A timeout was performed verifying the patient's name, d ate of , and site of injection. The skin overlying the left and right sacroiliac joints was pre pped and draped in usual sterile fashion. Attention was first turned to the left sacroiliac joint. An esthetic was administered with 1% lidocaine subcutaneously. A 22 G needle was advanced under fluoros copic guidance into the left sacroiliac joint. Injection of 1cc of Omnipaque 240 was performed to ve rify intra-articular position of the needle. Intra-articular needle position was confirmed. Subsequ ently, injectate consisting of 4 mL a 2:1:1 mixture of 1% lidocaine: 4 mg/mL dexamethasone: 40 mg/mL Kenalog for a total dosage of 4 mg dexamethasone and 40 mg Kenalog were instilled. The needle was rem wallace and attention was turned to the contralateral right sacroiliac joint. Anesthetic was administered at the right sacral erect joint with 1% lidocaine subcutaneously. A 22 G needle was advanced under fluoroscopic guidance into the left sacroiliac joint. Injection of 1cc of Omnipaque 240 was performed to verify intra-articular position of the needle. Intra-articular needl e position was confirmed. Subsequently, injectate consisting of 4 mL a 2:1:1 mixture of 1% lidocaine : 4 mg/mL dexamethasone: 40 mg/mL Kenalog for a total dosage of 4 mg dexamethasone and 40 mg Kenalog were instilled. The needle was removed and both the left and right entry sites were cleaned and dress ed. There were no immediate complications. FINDINGS: Images demonstrate needles and small amount of contrast within both the left and right sacroiliac sujatha nts. Pain level prior to the procedure was 7/10. Patient's pain following the procedure: 2/10. IMPRESSION: 1. Successful bilateral sacroiliac joint injections of anesthetic and steroid with diminution of pre senting pain. Reviewed, dictated and finalized at location A. [employer] IMPRESSION: 1. Successful bilateral sacroiliac joint injections of anesthetic and steroid with diminution of presenting pain.
== END 2023-03-07 13:37 | disposition home or self-care (01) ==
PROVIDERS: PCP Internal Medicine; Visit Provider Internal Medicine
DX: M54.16 Radiculopathy, lumbar region (principal); M53.3 Sacrococcygeal disorders, not elsewhere classified
CPT/HCPCS: 27096; G0260; J1100; J3301

== ENCOUNTER 2023-07-19 11:48 | Outpatient (CLI) | payer MEDICARE, SELFPAY ==
--- NOTE | ~2023-07-19 | XR_ITS ---
Clinical Indication: Cough PA and lateral views of the chest: Comparison: None Findings: Calcified right basilar granuloma present. Questionable noncalcified 1.1 cm left basilar pu lmonary nodule The lungs are otherwise clear, without evidence of focal consolidation or pleural effu stephon. Cardiomediastinal silhouette is within normal limits. Bones and soft tissues are unremarkable. Impression: Questionable 1.1 cm left basilar noncalcified pulmonary nodule. Recommend chest CT to further evaluat e. Reviewed, dictated and finalized at [facility]. Impression: Questionable 1.1 cm left basilar noncalcified pulmonary nodule. Recommend chest CT to further evaluate.
[2023-07-19 12:08] LABS: Basophils Absolute Auto 0.05 K/mm3 (0.00-0.10); Basophils Percent Auto 0.5 % (0.0-1.0); Eosinophils Absolute Auto 0.32 K/mm3 (0.02-0.50); Eosinophils Percent Auto 3.4 % (1.0-6.0); Hematocrit 39.6 % (37.0-46.0); Hemoglobin 12.4 g/dL (12.4-15.3); Immature Granulocyte Absolute 0.05 K/mm3 (0.00-0.00); Immature Granulocyte Percent A 0.5 % (0.0-0.0); Lymphocytes Absolute Auto 1.56 K/mm3 (1.10-4.50); Lymphocytes Percent Auto 16.8 % (18.0-42.0); Mean Corpuscular HGB Conc 31.3 g/dL (32-36); Mean Corpuscular Hemoglobin 26.3 pg (27.0-31.0); Mean Corpuscular Volume 83.9 fL (78.0-102.0); Mean Platelet Volume 10.1 fl (8.7-11.0); Monocytes Percent Auto 10.8 % (2.0-11.0); Neutrophils Absolute Auto 6.31 K/mm3 (1.70-7.20); Platelet Count Result 226 K/mm3 (150-420); Red Blood Count 4.72 M/mm3 (4.70-6.10); Red Cell Distribution Width 13.5 % (11.6-14.4); White Blood Count 9.3 K/mm3 (4.8-10.8)
[2023-07-19 12:25] LABS: Alanine Aminotransferase 41 U/L (16-63); Albumin Level 3.5 g/dL (3.4-5.0); Alkaline Phosphatase 100 U/L (46-116); Anion Gap 9 mmol/L (4-12); Aspartate Amino Transferase 27 U/L (15-37); Bilirubin,Total 0.3 mg/dL (0.00-1.00); Blood Urea Nitrogen 36 mg/dL (7-18); Carbon Dioxide 31 mmol/L (21-32); Chloride 104 mmol/L (98-108); Estimated Glomerular Filt Rate 52; Glucose 90 mg/dL (70-99); Osmolality Calculated 306 mOsm/kg (285-295); Potassium 3.9 mmol/L (3.5-5.1); Sodium 144 mmol/L (136-145); Total Protein 7.5 g/dL (6.4-8.2)
[2023-07-19 12:36] LABS: Strep Group A RT-PCR NOT DETECTED (Negative)
[2023-07-19 13:11] LABS: Influenza A QL RT-PCR Negative (Negative); Influenza B QL RT-PCR Negative (Negative); RSV RNA, RT-PCR Negative (Negative); SARS-CoV-2 RNA PCR Negative (Negative)
== END 2023-07-19 11:49 | disposition home or self-care (01) ==
LOC: CHSLAB 11:49
PROVIDERS: PCP Internal Medicine; Visit Provider Internal Medicine
DX: R05.9 Cough, unspecified (principal); R06.2 Wheezing; R91.1 Solitary pulmonary nodule
CPT/HCPCS: 36415; 71046; 80053; 85025; 87634; 87635; 87637; 87651

== ENCOUNTER 2023-08-03 13:42 | Outpatient (CLI) | payer MEDICARE, SELFPAY ==
--- NOTE | ~2023-08-03 | CT_ITS ---
CT Scan of the Chest without Contrast: Clinical Indication: Pulmonary nodule Technique: Contiguous sections were acquired throughout the chest without intravenous contrast. Dose reduction technique was used on this scan by utilizing automated exposure control and iterative recon struction technique. The dose-length product (DLP) was 260.36 mGy-cm. Findings: There is no evidence of any significant mediastinal, hilar or axillary lymphadenopathy. Coronary cynthia ry calcifications are present. There is no evidence of pleural or pericardial effusion. Large calcified right middle lobe granuloma present. There is mild subpleural reticulation and periph eral interstitial thickening. Images through the upper abdomen reveal diffuse fatty infiltration of liver. 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 Impression: Large calcified right upper lobe granuloma. Mild chronic interstitial disease, as above. Diffuse fatty infiltration of liver. Reviewed, dictated and finalized at [facility]. Impression: Large calcified right upper lobe granuloma. Mild chronic interstitial disease, as above. Diffuse fatty infiltration of liver.
== END 2023-08-03 13:43 | disposition home or self-care (01) ==
LOC: CHSIMG 13:44
PROVIDERS: PCP Internal Medicine; Visit Provider Internal Medicine
DX: R91.1 Solitary pulmonary nodule (principal); J84.10 Pulmonary fibrosis, unspecified; J84.9 Interstitial pulmonary disease, unspecified; K76.0 Fatty (change of) liver, not elsewhere classified
CPT/HCPCS: 71250

== ENCOUNTER 2023-11-13 09:00 | Outpatient (CLI) | payer MEDICARE, SELFPAY ==
--- NOTE | ~2023-11-13 | XR_ITS ---
XR knee LT min 4V Ordering provider: Avelino Arce MD History: . LT knee pain X years, getting worse . Comparison: None. FINDINGS: BONES: No acute fracture or dislocation. JOINT SPACES: Severe narrowing of the medial compartment. Chondrocalcinosis seen in the lateral menis cus. Osteophytes seen in the patella. SOFT TISSUES: Normal. IMPRESSION: No acute osseous abnormality left knee. Severe osteoarthritic changes. Reviewed, dictated and finalized at location A.
--- NOTE | ~2023-11-13 | XR_ITS ---
XR hip RT min 2V Ordering provider: Avelino Arce MD History: . RT hip pain, Hx of THR X 1 year . Comparison: December 11, 2022 FINDINGS: BONES: No acute fracture or dislocation. HIP JOINT SPACES: A right hip arthroplasty. SACROILIAC JOINT SPACES/LUMBAR SPINE: The sacroiliac joint spaces are normal. Mild degenerative roblero es of the visualized lower lumbar spine. PUBIC SYMPHYSIS: Pubic symphysitis. SOFT TISSUES: Normal. IMPRESSION: No acute osseous abnormality pelvis and right hip. Right hip total arthroplasty. Reviewed, dictated and finalized at location A.
== END 2023-11-13 09:01 | disposition home or self-care (01) ==
LOC: CHSIMG 09:02
PROVIDERS: PCP Internal Medicine; Visit Provider Orthopaedic Surgery
DX: M25.562 Pain in left knee (principal); M25.551 Pain in right hip; M17.12 Unilateral primary osteoarthritis, left knee; Z96.641 Presence of right artificial hip joint
CPT/HCPCS: 73502; 73564

== ENCOUNTER 2023-12-26 09:20 | Outpatient (CLI) | payer MEDICARE, SELFPAY ==
--- NOTE | 2023-12-26 12:00 | NEURO_ITS ---
Impression: # Complains of numbness of left hand. Non-diabetic. # Severe left Carpal Tunnel Syndrome. # Abnormal Needle/EMG exam. Nerve Conduction Studies Anti Sensory Summary Table Stim Site NR Peak (ms) P-T Amp (?V) Site1 Site2 Delta-P (ms) Dist (cm) Moreno (m/s) Left Median Anti Sensory (2-3nd Digit) Wrist 5.0 13.5 Wrist 2-3nd Digit 5.0 14.0 28 Wrist 5.2 13.7 Wrist 2-3nd Digit 5.0 14.0 28 Left Radial Anti Sensory (Base 1st Digit) Wrist 2.1 9.6 Wrist Base 1st Digit 2.1 0.0 Left Ulnar Anti Sensory (5th Digit) Wrist 2.5 27.6 Wrist 5th Digit 2.5 14.0 56 Motor Summary Table Stim Site NR Onset (ms) O-P Amp (mV) Site1 Site2 Delta-0 (ms) Dist (cm) Moreno (m/s) Left Median Motor (Abd Poll Brev) Wrist 6.8 0.6 Elbow Wrist 6.9 29.0 42 Elbow 13.7 0.9 Left Ulnar Motor (Abd Dig Minimi) Wrist 2.8 5.4 A Elbow Wrist 6.1 30.0 49 A Elbow 8.9 4.7 B Elbow Wrist 4.5 21.0 47 B Elbow 7.3 3.3 F Wave Studies NR F-Lat (ms) L-R F-Lat (ms) Left Median (Mrkrs) (Abd Poll Brev) DISPERSED RESPONSE NR Left Ulnar (Mrkrs) (Abd Dig Min) 31.55 EMG Side Muscle Nerve Root Ins Act Fibs Amp Dur Recrt Comment Left 1stDorInt Ulnar C8-T1 Nml Nml Nml Nml Nml Left Ext Indicis Radial (Post Int) C7-8 Nml Nml Nml Nml Nml Left Ext Digitorum Radial (Post Int) C7-8 Nml Nml Nml Nml Nml Left BrachioRad Radial C5-6 Nml Nml Nml Nml Nml Left PronatorTeres Median C6-7 Nml Nml Nml Nml +1 Left Abd Poll Brev Median C8-T1 Nml 1+ Nml >12ms +2 Left ABD Dig Min Ulnar C8-T1 Nml Nml Nml Nml Nml MTDD
== END 2023-12-26 09:21 | disposition home or self-care (01) ==
LOC: ANHNEURO 09:20
PROVIDERS: PCP Internal Medicine; Visit Provider Internal Medicine
DX: G56.02 Carpal tunnel syndrome, left upper limb (principal)
CPT/HCPCS: 95886; 95909

== ENCOUNTER 2024-01-04 12:20 | Outpatient (CLI) | payer MEDICARE, SELFPAY ==
--- NOTE | ~2024-01-04 | XR_ITS ---
EXAMINATION: XR shoulder LT min 2V DATE: 01/04/2024 13:00 INDICATION: Chronic left shoulder pain TECHNIQUE: AP internally and externally rotated, AP oblique externally rotated and transscapular Y vi ews of the left shoulder were obtained. COMPARISON: None FINDINGS: Normal alignment. No fracture.Moderate left acromioclavicular osteoarthritis with small inferiorly d irected osteophytes. Mild left glenohumeral osteoarthritis with inferior predominant nonuniform joint space narrowing. Moderate thoracic spondylosis. Multilevel severe bilateral cervical facet osteoarth ritis. Soft tissues are unremarkable. IMPRESSION: Mild left glenohumeral and moderate acromioclavicular osteoarthritis. Reviewed, dictated and finalized at location A.
== END 2024-01-04 12:21 | disposition home or self-care (01) ==
LOC: CHSIMG 12:22
PROVIDERS: PCP Internal Medicine; Visit Provider Internal Medicine
DX: M25.512 Pain in left shoulder (principal); M19.012 Primary osteoarthritis, left shoulder
CPT/HCPCS: 73030

== ENCOUNTER 2024-01-15 13:55 | Outpatient (RCR) | payer MEDICARE, SELFPAY ==
--- NOTE | 2024-01-15 14:59 | OPREHPOC ---
Outpatient Therapy Plan of Care This is a Multidisciplinary Plan of Care that may contain components documented by all disciplines (PT, OT, and ST.) PT Problem 1 PT Problem #1 Knowledge Deficit PT Goal 1 Goal / Goal Update 1. independent and compliant with HEP Target Visit 4 PT Problem 2 PT Problem #2 Impaired Range of Motion PT Goal 1 Goal / Goal Update 1. patient to achieve active standing shoulder flexion of the L arm to 145 degrees or better 2. patient to achieve active standing shoulder abduction of the L arm to 125 degrees or better Target Visit 8 PT Problem 3 PT Problem #3 Impaired Strength PT Goal 1 Goal / Goal Update 1. 3+/5 or better L shoulder flexion 2. 3+/5 or better L shoulder abduction 3. 3+/5 or better L shoulder ER 4. 4/5 or better L elbow flexion Target Visit 8 PT Problem 4 PT Problem #4 Impaired Functional Mobil PT Goal 1 Goal / Goal Update 1.quick dash to display less than 50% functional defictis Target Visit 8
--- NOTE | 2024-01-15 14:59 | PTOPEVAL1 ---
Assessment and note entered by JT File, PT Evaluation Information Assessment Status Evaluation ICD-10 Condition Codes (PT) M25.512 Onset 01/11/24 Subjective Information he reports he notices the pain in the L shoulder when reaching for his seat belt. he reports he is unable to raise his arm to his side. he reports he does not have much pain, but does have numbness in his hand. he reports he had a test for carpal tunnel, and he reports he does in fact have carpal tunnel. he reports he when he uses icy hot on the arm and takes his sleeping pill he can sleep through the night, but reports the L shoulder was keeping him up at night. he reports no specific injury to the L shoulder. he reports the numbness to the L hand is contained to to the volar wrist area and the thumb, index, and long fingers. Reported Pain Level Pain Score 0: Self Report Assessment PT Clinical Summary mr. gallegos is a 73 yo man who presents to skilled PT services for evaluation and treatment of L shoulder weakness and decreased functional use. patient is unable to raise the L arm away from his body, he displays weakness in overall L shoulder strength (especially abd, ER), and positive special tests that indicated a RTC tear of the L shoulder. he would benefit from MRI to confirm the presence of a tear, but in the mean time will continue skilled PT to maintain rom and improve strength of other aspects of the L UE. he currently is also suffering from signs and symptoms consistent with L carpal tunnel. Plan of Care Interventions Electrical Stimulation,Hot Pack/Cold Pack,Manual Therapy,Neuro Re-education,Patient/Caregiver Educati,Therapeutic Activities,Therapeutic Exercise PT Services Indicated Yes Treatment Frequency and 2x weekly for 8 visits Duration These treatments will address the objective and functional deficits as defined above. The patient will be advanced safely and appropriately in order for the patient to progress towards his/her prior level of function. Additional exercises will be introduced and as well as a comprehensive home exercise program upon discharge, if needed, ?to ensure carryover of functional gains achieved in the clinic. This treatment plan has been reviewed and agreement upon by the patient.
--- NOTE | 2024-02-13 16:21 | OPREHPOC ---
Outpatient Therapy Plan of Care This is a Multidisciplinary Plan of Care that may contain components documented by all disciplines (PT, OT, and ST.) PT Problem 1 PT Problem #1 Knowledge Deficit PT Goal 1 Goal / Goal Update 1. independent and compliant with HEP Target Visit 4 Progress Met PT Problem 2 PT Problem #2 Impaired Range of Motion PT Goal 1 Goal / Goal Update 1. patient to achieve active standing shoulder flexion of the L arm to 145 degrees or better 2. patient to achieve active standing shoulder abduction of the L arm to 125 degrees or better Target Visit 8 Progress Not Met PT Problem 3 PT Problem #3 Impaired Strength PT Goal 1 Goal / Goal Update 1. 3+/5 or better L shoulder flexion 2. 3+/5 or better L shoulder abduction 3. 3+/5 or better L shoulder ER 4. 4/5 or better L elbow flexion Target Visit 8 Progress Not Met PT Problem 4 PT Problem #4 Impaired Functional Mobil PT Goal 1 Goal / Goal Update 1.quick dash to display less than 50% functional defictis Target Visit 8 Progress Not Met
--- NOTE | 2024-02-13 16:21 | PTOPDC ---
Assessment and note entered by JT File, PT Evaluation Information Assessment Status Discharge ICD-10 Condition Codes (PT) M25.512 Onset 01/11/24 Subjective Information patient reports no significant improvement of L shoulder/UE functional use. he reports he still cannot raise the arm up, and is not able to lift any objects with the L UE. he continues to have carpal tunnel symptoms in the L hand. Reported Pain Level Pain Score 3: Self Report Assessment PT Clinical Summary mr. gallegos presents to skilled PT for his 8th skilled PT visit for his shoulder. he continues to display deficits in shoulder active rom and strength. he continues to have carpal tunnel symptoms in the L hand. he reports no significant improvement in use of the L UE through 8 visits of PT. at this time, patient would benefit from return to [place] for MRI of the L shoulder. he will be DC'd from skilled PT at this time. Plan of Care PT Services Indicated Yes
== END 2024-02-13 16:39 | disposition home or self-care (01) ==
LOC: CHSPT 13:55
PROVIDERS: PCP Internal Medicine; Visit Provider Internal Medicine
DX: M25.512 Pain in left shoulder (principal)
CPT/HCPCS: 97110; 97140; 97161

== ENCOUNTER 2024-03-20 09:01 | Outpatient (CLI) | payer MEDICARE, SELFPAY ==
--- NOTE | ~2024-03-20 | MR_ITS ---
EXAMINATION: MR shoulder LT wo/w con DATE: 03/20/2024 10:17 INDICATION: Left shoulder rotator cuff tear present 6 months of pain and limited range of motion TECHNIQUE: Magnetic resonance imaging (MRI) of the left shoulder was performed without and with 20 mL Multihance intravenous contrast. Sequences included axial PD-weighted FS FSE, axial T1-weighted FS F SE, coronal oblique PD-weighted FS FSE, coronal oblique T2-weighted FS FSE, sagittal PD-weighted FS F SE, sagittal T1-weighted SE and postcontrast axial, sagittal and coronal T1-weighted FS FSE. COMPARISON: None. FINDINGS: Coracoacromial arch: The acromion undersurface is curved in morphology (type II). The coracoacromial ligament is normal. M oderate acromioclavicular osteoarthritis with tiny inferior directed osteophytes at the lateral clavi ayleen and acromial subarticular cystlike changes. Rotator cuff: Moderate supraspinatus and mild infraspinatus tendinopathy without tear. The subscapularis and teres minor tendons are normal. Normal rotator cuff muscle bulk and signal. Biceps tendon, glenoid labrum and glenohumeral cartilage: Long head of the biceps tendon is normal. Small linear tear and more amorphous increased labral signa l consistent with degeneration at the anterior to anteroinferior glenoid labrum. Additional degenerat neil tearing with irregular margins of the small residual posterior labrum. There is subarticular daniela a-like signal change and small marginal osteophytes along the anterior rim of the glenoid. There is m ild partial-thickness cartilage loss with smooth chondral surface along the posterior glenoid. Additi onal mild posterior disc cartilage loss with smooth chondral surface and without degenerative subchon dral changes along the posterior inferior humeral head. Fluid: Small glenohumeral joint effusion. No loose osteochondral bodies. Small amount of fluid with mild per ipheral synovitis in the subacromial/subdeltoid bursa consistent with mild bursitis. Bones/other: Bone alignment is normal. No fracture or pathologic marrow replacing process. Mild cystic change at t he superior facet of the greater tuberosity likely related to chronic rotator cuff disease. No eviden t pathologically enlarged lymphadenopathy or abnormal enhancing masses. IMPRESSION: 1. Mild left glenohumeral osteoarthritis with degenerative tearing of the anterior and posterior labr um and likely reactive small glenohumeral joint effusion. 2. Moderate supraspinatus and mild infraspinatus tendinopathy without tear. 3. Moderate acromioclavicular osteoarthritis. 4. Mild subacromial/subdeltoid bursitis. Reviewed, dictated and finalized at location A. R CLIMBER IMPRESSION: 1. Mild left glenohumeral osteoarthritis with degenerative tearing of the anter ior and posterior labrum and likely reactive small glenohumeral joint effusion. 2. Moderate supraspinatus and mild infraspinatus tendinopathy without tear. 3. Moderate acromioclavicular osteoarthritis. 4. Mild subacromial/subdeltoid bursitis.
== END 2024-03-20 09:02 | disposition home or self-care (01) ==
PROVIDERS: PCP Internal Medicine; Visit Provider Internal Medicine
DX: S43.432A Superior glenoid labrum lesion of left shoulder, initial encounter (principal); M19.012 Primary osteoarthritis, left shoulder; M75.52 Bursitis of left shoulder; M67.814 Other specified disorders of tendon, left shoulder; X58.XXXA Exposure to other specified factors, initial encounter
CPT/HCPCS: 73223; A9577

== ENCOUNTER 2024-05-09 13:11 | Outpatient (CLI) | payer MEDICARE, SELFPAY ==
--- NOTE | ~2024-05-09 | XR_ITS ---
EXAMINATION: [id number] DATE: 05/09/2024 13:35 INDICATION: Cervical radiculopathy. Bilateral arm weakness. TECHNIQUE: 4 views of cervical spine were obtained. COMPARISON: None. FINDINGS: There is 2 mm anterolisthesis of C4 on C5. Vertebral body heights are normal. There is mild ly decreased disc height at C4-C5, severely decreased disc height at C5-C6, and mildly decreased disc height at C6-C7. There is multilevel facet joint osteoarthritis, severe at multiple levels. There is mild central canal stenosis at C4-C5 and C5-C6. No prevertebral soft tissue swelling. IMPRESSION: 1. Severe cervical spondylosis. Reviewed, dictated and finalized at location [facility]
--- OUTSIDE RECORDS SUMMARY | 2024-05-09 13:16 | XMS_ITS | Encounter Summary ---
Author Organization [facility] Healthcare Address [address] [place] [address] Care Team Providers Care Information Manager Name Role Phone Diana Villa MD Primary Care Provider Encounter Details Date Type Department Care Team (Late st Contact Info) Description 05/08/2024 Telephone [facility] Orthopedics and Sports Medicine [address] [facility] [address], [place] [address] Janeth Steel MA Social History Tobacco Use Types Packs/Day Years Used Date Smoking Tobacco: Never Smokeless Tobacco: Current Chew AUDIT-C Answer Date Recorded Q1: How often do you have a drink containing alcohol? Never 04/22/2024 Q2: How many drinks containi ng alcohol do you have on a typical day when you are drinking? Patient does not drink Q3: How often do you have si x or more drinks on one occasion? Never 04/22/2024 Sex and Gender Information Value Date Recorded Sex Assigned at Not on file Legal Sex Male 12:52 AM [employer] Gender Identity Male 04/09/2022 1:19 PM [employer] Sexual Orientation Not on file documented as of this encounter Miscellaneous Notes * Telephone Encounter - Janeth Steel MA - 05/08/2024 1:12 PM CST Waiting on MRI left shoulder report to be faxed to us then I will have Dr. Dominique review. From there he will let me know where to refer patient. [facility]/[employer] [employer] documented in this encounter Plan of Treatment Not on file documented as of this encounter Visit Diagnoses Not on filedocumented in this encounter Care Teams Information Manager Relationship Specialty Start Date End Date Diana Villa MD [address] [id number] PCP - General Internal Medicine 02/09/22 documented as of this encounter
--- OUTSIDE RECORDS SUMMARY | 2024-05-09 13:16 | XMS_ITS | Clinical Summary ---
Author Organization [facility] Address [address] [place] [address] Care Team Providers Care Enterer Name Role Phone Diana Villa MD Primary Care Provider [phone] Madan Crocker MD Unavailable [phone] Allergies No known active allergies Medications metoprolol succinate 50 MG 24 hr tablet TK 1 T PO QD 3 6 Active NITROSTAT 0.4 MG SL tablet DISSOLVE 1 T PO Q 5 MINUTES FOR 3 DOSES PRF CHEST PAIN 0 6 Active aspirin EC (ASPIRIN) 81 MG EC tablet Take 81 mg by mouth daily. Active zolpidem 10 MG tablet Take 10 mg by mouth nightly as needed for Sleep. Active paroxetine 20 MG tablet Take 20 mg by mouth every morning. Active montelukast 10 MG tablet Take 10 mg by mouth daily. Active multivitamin tablet Take 1 tablet by mouth daily. Active clopidogrel 75 MG tablet Take 4 tablets (300mg) by mouth on day #1, take 1 tablet by mouth once daily thereafter 94 tablet 3 6 Active coenzyme Q-10 150 MG capsule Take 150 mg by mouth daily. Active Active Problems Problem Noted Date Diagnosed Date Bilateral carotid bruits 01/11/2017 S/P right coronary artery (RCA) stent placement 01/11/2017 Myalgia 02/20/2016 Coronary artery disease invo lving [place] coronary artery of [place] heart without angina pectoris Overview (02/17/2016): WI and stenting Primary hypercholesterolemia Essential hypertension Hx of acute myocardial infarction of inferior wa ll Social History Tobacco Use Types Packs/Day Years Used Date Smoking Tobacco: Former Cigarettes Q uit: 1991 Smokeless Tobacco: Current Comments:smokeless tobacco Alcohol Use Standard Drinks/Week Comments Yes 33.3 (1 standard drink = 0.6 oz pure alcohol) Sex and Gender Information Value Date Recorded Sex Assigned at Not on file Legal Sex Male 8:10 AM CDT Gender Identity Not on file Sexual Orientation Not on file Last Filed Vital Signs Vital Sign Reading Time Taken Comments Blood Pressure 152/90 01/11/2017 1:10 PM CDT Pulse 74 01/11/2017 1:08 PM CDT Temperature - - Respiratory Rate 16 01/11/2017 1:08 PM CDT Oxygen Saturation 97% 01/11/2017 1:08 PM CDT Inhaled Oxygen Concentration - - Weight 95.3 kg (210 lb) 01/11/2017 1:08 PM CDT Height 167.6 cm (5' 6 ) 01/11/2017 1:08 PM CDT Body Mass Index 33.89 01/11/2017 1:08 PM CDT Plan of Treatment Health Maintenance Due Date Last Done Comments ASCVD LDL 1950 Colorectal Cancer Screening Colonoscopy (10 Years) 1950 Pneumococcal Vaccine: 65+ Ye ars (1 of 2 - PCV) 1956 Hepatitis C 1968 DTaP, Tdap and Td Vaccines ( 1 - Tdap) 1969 Zoster Vaccines (1 of 2) 2000 RSV Immunization or 60+ Years (1 - Risk 60-74 years 1-dose series) 2010 Annual Medicare Wellness Visit 07/31/2015 COVID-19 Vaccine ( - 2023-2 5 season) 2023 Influenza Adult (#1) 2024 Meningococcal B Vaccine Aged Out No l onger eligible based on patient's age to complete this topic Meningococcal Vaccine Aged Out No berenice anselmo eligible based on patient's age to complete this topic RSV Immunizations Under 20 Months Aged Out No longer eligible based on patient's age to complete this topic Insurance [employer] MEDICARE Care Teams Enterer Relationship Specialty Start Date End Date Diana Villa MD [address] [place] [id number] PCP - General INTERNAL MEDICINE 02/18/16 Madan Crocker MD [address] [place] [address] CARDIOVASCULAR DISEASE 02/18/16
--- OUTSIDE RECORDS SUMMARY | 2024-05-09 13:16 | XMS_ITS | Clinical Summary ---
Author Organization [facility] [address] [facility] Address [address] [place] [address] Care Team Providers Care Quality Control Coordinator Name Role Phone Diana Villa MD Primary Care Provider [phone] Allergies No known active allergies Medications Breo Ellipta 100-25 mcg/dose diskus inhaler 2 Active HYDROcodone-ac etaminophen (NORCO) 10-325 mg per tablet Take 1 tablet by mouth every 4 (four) hours as needed for pain 2 Active losartan-hydro CHLOROthiazide (HYZAAR) 50-12.5 mg per tablet 2 Active metoprolol XL (TOPROL-XL) 50 mg extended release tablet 3 Active montelukast (SINGULAIR) 10 mg tablet 2 Active zolpidem (AMBIEN) 10 mg tablet Take 1 tablet (10 mg total) by mouth nightly 3 Active atorvastatin (LIPITOR) 20 mg tablet Take 1 tablet (20 mg total) by mouth daily Active PARoxetine (PAXIL) 20 mg tablet Take 1 tablet (20 mg total) by mouth every morning Active aspirin 81 mg enteric coated tablet Take 1 tablet (81 mg total) by mouth daily Active coenzyme Q10 200 mg capsule Co Q-10 Activ e multivitamin tablet Take 1 tablet by mouth daily Active ampicillin (PRINCIPEN) 500 mg capsule TAKE 1 CAPSULE (500 MG) BY ORAL ROUTE EVERY 6 HOURS 1 HOUR BEFORE A MEAL OR 2 HOURS AFTER A MEAL 2 Active nitroglycerin (NITROSTAT) 0.4 mg SL tablet DISSOLVE 1 T PO Q 5 MINUTES FOR 3 DOSES PRF CHEST PAIN 6 Active fluticasone furoate-vilant [place] (BREO ELLIPTA) 100-25 mcg/dose diskus inhaler Breo Ellipta 100 mcg-25 mcg/dose powder for inhalation Active celecoxib (CeleBREX) 200 mg capsule TAKE 1 CAPSULE (200 MG) BY MOUTH EVERY DAY 3 Active gabapentin (NEURONTIN) 300 mg capsule TAKE 1 CAPSULE (300 MG) BY ORAL ROUTE 3 TIMES PER DAY. MAY TAKE EXTRA CAPSULE AT BEDTIME 2 04/22/19 25 Discontin ued(Patie nt Reported) fluticasone propionate (FLONASE) 50 mcg/actuation nasal spray fluticasone propionate 50 mcg/actuation nasal spray,suspensio n 04/22/19 25 Discontin ued(Patie nt Reported) clopidogreL (PLAVIX) 75 mg tablet Take 4 tablets (300mg) by mouth on day #1, take 1 tablet by mouth once daily thereafter 6 04/22/19 25 Discontin ued(Patie nt Reported) Active Problems Problem Noted Date Diagnosed Date Coronary artery disease invo lving [place] coronary artery of [place] heart without angina pectoris 05/31/2022 Overview (05/31/2022): [place] and stenting Essential hypertension 05/31/2022 Hx of acute myocardial infarction of inferior wa ll 05/31/2022 Primary hypercholesterolemia 05/31/2022 Pain in joint of right hip 01/02/2022 Bilateral carotid bruits 01/11/2017 S/P right coronary artery (RCA) stent placement 01/11/2017 Myalgia 02/20/2016 Encounters Date Type Department Care Team Description 05/08/2024 11:45 AM BILINGUAL ADMINISTRATIVE ASSISTANT Office Visit [facility] Orthopedics and Sports Medicine [address] [place] [address] Yoel Dominique MD Carpal tunnel syndrome, left (Primary Dx); Arthritis of carpometacarpal (CMC) joint of left thumb; Arthritis of left wrist; Rotator cuff tendinitis, left 05/08/2024 Telephone [facility] [address] [place] [address] Janeth Steel MA 04/22/2024 11:15 AM BILINGUAL ADMINISTRATIVE ASSISTANT Office Visit [facility] [address] [place] [address] Sherrie Dumont NP Left hand pain (Primary Dx); Carpal tunnel syndrome of left wrist 04/22/2024 7:54 AM BILINGUAL ADMINISTRATIVE ASSISTANT - 04/22/2024 11:59 PM BILINGUAL ADMINISTRATIVE ASSISTANT Hospital Encounter [facility] [address] [place] [phone] Discharge Disposition: Discharge to home or self care from Last 3 Months Surgical History Surgery Date Site/Laterality Comments KNEE SURGERY SHOULDER SURGERY CARDIAC STENT PLACEMENT ARM SURGERY MICRODISCECTOMY LUMBAR 04/02/1986 - 04/01/1987 Medical History Medical History Date Comments Anxiety Arthritis Hypercholesteremia Hypertension Myocardial infarction (HCC) Family History Medical History Relation Name Comments Cancer Father Mental illness Mother Arthritis Sister Relation Name Status Comments Father Mother Sister Social History Tobacco Use Types Packs/Day Years Used Date Smoking Tobacco: Never Smokeless Tobacco: Current Chew Tobacco Cessation:Ready to Q uit: Not Asked; Counseling Given: Not Answered AUDIT-C Answer Date Recorded Q1: How often [...] on file Legal Sex Male 12:52 AM BILINGUAL ADMINISTRATIVE ASSISTANT Gender Identity Male 04/09/2022 1:19 PM BILINGUAL ADMINISTRATIVE ASSISTANT Sexual Orientation Not on file Obstetrics History Last Filed Vital Signs Vital Sign Reading Time Taken Comments Blood Pressure 130/80 04/22/2024 11:06 AM BILINGUAL ADMINISTRATIVE ASSISTANT Pulse 76 04/22/2024 11:06 AM BILINGUAL ADMINISTRATIVE ASSISTANT Temperature - - Respiratory Rate - - Oxygen Saturation - - Inhaled Oxygen Concentration - - Weight 110.2 kg (243 lb) 05/08/2024 10:46 AM BILINGUAL ADMINISTRATIVE ASSISTANT Height 160 cm (5' 3 ) 05/08/2024 10:46 AM BILINGUAL ADMINISTRATIVE ASSISTANT Body Mass Index 43.05 05/08/2024 10:46 AM BILINGUAL ADMINISTRATIVE ASSISTANT Plan of Treatment Health Maintenance Due Date Last Done Comments Colon Cancer Screening-Colonoscopy 1950 Depression Screening 1950 Fall Risk Assessment 1950 Hepatitis C Screening 1950 DTaP/Tdap/Td Vaccine (1 - Tdap) 1961 Hepatitis B Screening 1968 Zoster Vaccine (1 of 2) 2000 Pneumococcal vaccine 65+ (1 of 1 - PCV) 07/31/2015 Well Visit 65+ 07/31/2015 Influenza Vaccine (#1) 2023 Procedures Procedure Name Priority Date/Time Associated Diagnosis Comments XR HAND LEFT 3 OR MORE VIEWS Schedule Routine, Read Routine (OP Routine) 04/22/2024 11:07 AM BILINGUAL ADMINISTRATIVE ASSISTANT Left hand pain from Last 3 Months Results * XR Hand Left 3 or More Views (04/22/2024 11:07 AM BILINGUAL ADMINISTRATIVE ASSISTANT) Anatomical Region Laterality Modality Upper Extremities, Hand Left Digital Radiography Narrative 04/24/2024 3:28 PM BILINGUAL ADMINISTRATIVE ASSISTANT X-ray of the left hand viewed and interpreted. There is no evidence of fracture, subluxation, or bony abnormality. 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
--- OUTSIDE RECORDS SUMMARY | 2024-05-09 13:16 | XMS_ITS | Referral Summary ---
Author Organization [facility] [address] [facility] Address [address] [place] [address] Care Team Providers Care Transport Corps Officer Name Role Phone Diana Villa MD Primary Care Provider Encounters Date Type Department Care Team Description 05/08/2024 Telephone [facility] Orthopedics and Sports Medicine [address] [place] [address] [address], [place] [phone] Janeth Steel MA 05/08/2024 11:45 AM DELICATESSEN CLERK Office Visit [facility] Orthopedics and Sports Medicine [address] [place] [address], [place] [phone] Yoel Dominique MD Carpal tunnel syndrome, left (Primary Dx); Arthritis of carpometacarpal (CMC) joint of left thumb; Arthritis of left wrist; Rotator cuff tendinitis, left 04/22/2024 7:54 AM DELICATESSEN CLERK - 04/22/2024 11:59 PM DELICATESSEN CLERK Hospital Encounter [facility] Orthopedics and Sports Medicine [address] [place] [address], [place] [phone] Discharge Disposition: Discharge to home or self care 04/22/2024 11:15 AM DELICATESSEN CLERK Office Visit [facility] Orthopedics and Sports Medicine [address] [place] [address] [address] [place] [phone] Sherrie Dumont NP Left hand pain (Primary Dx); Carpal tunnel syndrome of left wrist from Last 3 Months Allergies No known active allergies Medications Breo [...] Diagnosed Date Coronary artery disease invo lving [place] coronary artery of [place] heart without angina pectoris 05/31/2022 Overview (05/31/2022): [place] and stenting Essential hypertension 05/31/2022 Hx of acute myocardial infarction of inferior wa ll 05/31/2022 Primary hypercholesterolemia 05/31/2022 Pain in joint of right hip 01/02/2022 Bilateral carotid bruits 01/11/2017 S/P right coronary artery (RCA) stent placement 01/11/2017 Myalgia 02/20/2016 Social History Tobacco Use Types Packs/Day Years [...] on file Legal Sex Male 12:52 AM DELICATESSEN CLERK Gender Identity Male 04/09/2022 1:19 PM DELICATESSEN CLERK Sexual Orientation Not on file Last Filed Vital Signs Vital Sign Reading Time Taken Comments Blood Pressure 130/80 04/22/2024 11:06 AM DELICATESSEN CLERK Pulse 76 04/22/2024 11:06 AM DELICATESSEN CLERK Temperature - - Respiratory Rate - - Oxygen Saturation - - Inhaled Oxygen Concentration - - Weight 110.2 kg (243 lb) 05/08/2024 10:46 AM DELICATESSEN CLERK Height 160 cm (5' 3 ) 05/08/2024 10:46 AM DELICATESSEN CLERK Body Mass Index 43.05 05/08/2024 10:46 AM DELICATESSEN CLERK Plan of Treatment Not on file Procedures Procedure Name Priority Date/Time Associated Diagnosis Comments XR HAND LEFT 3 OR MORE VIEWS Schedule Routine, Read Routine (OP Routine) 04/22/2024 11:07 AM DELICATESSEN CLERK Left hand pain from Last 3 Months Results * XR Hand Left 3 or More Views (04/22/2024 11:07 AM DELICATESSEN CLERK) Anatomical Region Laterality Modality Upper Extremities, Hand Left Digital Radiography Narrative 04/24/2024 3:28 PM DELICATESSEN CLERK X-ray of the left hand viewed and interpreted. There is no evidence of fracture, subluxation, or bony abnormality. Diffuse osteoarthritis throughout most notably in CMC joint Sherrie Dumont INTERNAL MEDICINE HOSPITALIST IMG XR PROCEDURES Final Result from Last 3 Months Insurance AETNA MEDICARE AETNA MEDICARE [facility] MEDICARE Care Teams Transport Corps Officer Relationship Specialty Start Date End Date Diana Villa MD [address] [place] [address] PCP - General Internal Medicine 02/09/22
--- OUTSIDE RECORDS SUMMARY | 2024-05-09 13:16 | XMS_ITS | Encounter Summary ---
Author Organization [facility] Address [address] [place] [address] Care Team Providers Care Band Head Saw Operator Name Role Phone Diana Villa MD Primary Care Provider Reason for Visit * Reason Comments Follow-up Encounter Details Date Type Department Care Team (Latest Contact Info) Description 05/08/2024 11:45 AM SCHOOL LABORATORY TECHNICIAN Office Visit [facility] Orthopedics and Sports Medicine [address] [place] [address] [address] [place] [address] Yoel Dominique MD [address] [place] [address] [address] [place], [place] [id number] Carpal tunnel syndrome, left (Primary Dx); Arthritis of carpometacarpal (CMC) joint of left thumb; Arthritis of left wrist; Rotator cuff tendinitis, left Social History Tobacco Use Types Packs/Day Years [...] on file Legal Sex Male 12:52 AM SCHOOL LABORATORY TECHNICIAN Gender Identity Male 04/09/2022 1:19 PM SCHOOL LABORATORY TECHNICIAN Sexual Orientation Not on file documented as of this encounter Last Filed Vital Signs Vital Sign Reading Time Taken Comments Blood Pressure - - Pulse - - Temperature - - Respiratory Rate - - Oxygen Saturation - - Inhaled Oxygen Concentration - - Weight 110.2 kg (243 lb) 05/08/2024 10:46 AM SCHOOL LABORATORY TECHNICIAN Height 160 cm (5' 3 ) 05/08/2024 10:46 AM SCHOOL LABORATORY TECHNICIAN Body Mass Index 43.05 05/08/2024 10:46 AM SCHOOL LABORATORY TECHNICIAN documented in this encounter Progress Notes * Yoel Dominique MD - 05/08/2024 11:45 AM CST Images from the original note were not included. FOLLOW UP VISIT Subjective CHIEF COMPLAINT He had concerns including Follow-up of the Left Wrist. HISTORY OF PRESENT ILLNESS This is a pleasant 73-year-old gentleman with a chief complaint of left hand numbness and tingling along with pain and weakness. He also says both of his arms hurt all the way up to his shoulders andhe has difficulty raising his arms above shoulder height. He had an EMG at [facility] which was reviewed and reveals evidence of left carpal tunnel syndrome. Pain Assessment Pain Assessment: 0-10 Pain Score: 0 - No pain MEDICATIONS He has a current medication list which includes the following prescription(s): ampicillin, aspirin,atorvastatin, breo ellipta, celecoxib, coenzyme q10, fluticasone furoate-vilanterol, hydrocodone-acetaminophen, losartan- hydrochlorothiazide, metoprolol xl, montelukast, multivitamin, nitroglycerin, p aroxetine, and zolpidem. REVIEW OF SYSTEMS Review of Systems Constitutional: Negative for appetite change and fever. HENT: Negative for drooling, facial swelling and voice change. Eyes: Negative for discharge. Respiratory: Negative for apnea and wheezing. Cardiovascular: Negative for chest pain and palpitations. Gastrointestinal: Negative for abdominal distention and abdominal pain. Endocrine: Negative for polydipsia. Genitourinary: Negative for flank pain. Musculoskeletal: Positive for arthralgias and myalgias. Skin: Negative for color change and rash. Neurological: Negative for speech difficulty. Hematological: Does not bruise/bleed easily. Psychiatric/Behavioral: Negative for hallucinations. Objective PHYSICAL EXAM Ht 160 cm (5' 3 ) Wt 110.2 kg (243 lb) BMI 43.05 kg/m?? Left shoulder Inspection Erythema: absent Edema: absent Effusion: absent Swelling: absent Skin temperature: normal Atrophy: absent AC joint deformity: absent Scapular winging: absent Abrasion: absent Surgical scar/wound is absent. Scapulothoracic motion: normal Palpation Tenderness is present. The patient has tenderness in the anterior shoulder and posterior shoulder area(s). Range of motion The patient has normal range of motion of the left shoulder with exceptions . The patient has pain with range of motion of the left shoulder. Stability The patient has normal stability of the left shoulder. Strength The patient has 5/5 strength throughout. Neurovascular The patient has normal vascular on the left side of their body. The patient has normal sensation on the left side of their body. Tests Apprehension: negative Belly press: negative Cross am: negative Hawkin's test: postive Impingement signs: positive Lift-off: negative Neer's: positive Speed's: negative Spurling's: negative Left hand/wrist Inspection Erythema: absent Effusion: absent Edema: absent Temperature: normal Abrasion: absent Surgical scar/wound: absent. Visible mass: absent. Intrinsic atrophy: absent Thenar atrophy: absent Palpation Tenderness: absent. Range of motion Index: MP: The patient has normal range of motion of the left fingers. Stability The patient has nomal stability of the left hand and wrist. Strength Chipper: 3/5 Neurovascular The patient has normal vascular on the left side of their body. The patient has normal sensation with exceptions as noted below. Median: decreased Thumb 2pt discrimination: decreased. Index 2pt discrimination: decreased. Long 2pt discrimination: decreased. Ring 2pt discrimination: normal. Small 2pt discrimination: normal. Tests Phalen's sign: positive Tinel's sign: positive Median nerve compression:positive REVIEW OF X-RAYS/STUDIES/LABS EMG from [facility] was reviewed and reveals evidence of left carpal tunnel syndrome. Assessment/Plan Marvin was seen today for follow-up. Diagnoses and all orders for this visit: Carpal tunnel syndrome, left PLAN The patient has multiple upper extremity complaints including symptoms of peripheral nerve compression, wrist and shoulder arthritis, and potentially some cervical radicular symptoms. Given his constellation of upper extremity problems, I would like him to be seen by a shoulder and elbow or hand specialist for consideration for multiple surgical interventions potentially. Yoel Dominique MD OL LABORATORY TECHNICIAN documented in this encounter Plan of Treatment Not on file documented as of this encounter Visit Diagnoses Diagnosis Carpal tunnel syndrome, left- Primary Carpal tunnel syndrome Arthritis of carpometacarpal (CMC) joint of left thumb Arthritis of left wrist Rotator cuff tendinitis, left documented in this encounter Care Teams Band Head Saw Operator Relationship Specialty Start Date End Date Diana Villa MD [address] [place] [address] PCP - General Internal Medicine 02/09/22 documented as of this encounter
== END 2024-05-09 13:12 | disposition home or self-care (01) ==
LOC: CHSIMG 13:13
PROVIDERS: PCP Internal Medicine; Visit Provider Internal Medicine
DX: M54.12 Radiculopathy, cervical region (principal); M43.02 Spondylolysis, cervical region
CPT/HCPCS: 72040

== ENCOUNTER 2024-05-17 07:59 | Outpatient (CLI) | payer MEDICARE, SELFPAY ==
--- NOTE | ~2024-05-17 | MR_ITS ---
EXAMINATION: MR cervical spine wo con DATE: 05/17/2024 08:46 INDICATION: Bilateral hand weakness TECHNIQUE: Magnetic resonance imaging (MRI) of the cervical spine was performed without intravenous c ontrast. Sequences included sagittal T2-weighted FSE, sagittal T2-weighted FS FSE, sagittal T1-weight ed FSE, axial MERGE and axial T2-weighted FSE. COMPARISON: None FINDINGS: 2 mm anterolisthesis C4 on C5 and 2 mm retrolisthesis C5 on C6. 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 Vertebral body heights are normal. Moderate disc height loss at C5-C6 with associated mild fibrovascular degenerative endplate changes. Marrow signal is othe rwise normal. Additional mild disc height loss at C4-C5 and C7-T1. Cord signal intensity is normal. V isualized cervical soft tissues are unremarkable. The following disc levels are specifically discusse d: C2-C3: The disc does not extend beyond the endplate margin. There is mild bilateral uncovertebral sujatha nt osteoarthritis. There is moderate right and severe left facet joint osteoarthritis. There is mild right and moderate left neural foraminal stenosis. There is no central canal stenosis. C3-C4: Disc is bulging, eccentric to the right with flattening of the right ventral surface of the co rd. There is mild left and moderate right uncovertebral joint osteoarthritis. There is moderate left and severe right facet joint osteoarthritis. There is mild left and moderate right neural foraminal s tenosis. There is mild central canal stenosis. C4-C5: Disc is bulging with flattening the ventral surface of the cord. There is moderate bilateral u ncovertebral joint osteoarthritis. There is severe bilateral facet joint osteoarthritis. There is mod erate to severe bilateral neural foraminal stenosis. There is mild central canal stenosis. C5-C6: Disc is bulging with superimposed annular fissure and small central disc extrusion with disc m aterial extending up to 4 mm caudal to the level of the superior endplate of C6. There is indention o f the ventral surface of the cord and effacement of the surrounding CSF signal. There is severe bilat eral uncovertebral joint osteoarthritis. There is mild to moderate bilateral facet joint osteoarthrit is. There is moderate to severe bilateral neural foraminal stenosis. There is moderate central canal stenosis measuring 7 mm AP in the mid sagittal plane. C6-C7: Disc is bulging, eccentric to the right with indentation of the right ventral surface of the c ord. There is mild left and moderate right uncovertebral joint osteoarthritis. There is moderate bila teral facet joint osteoarthritis. There is moderate right and mild left neural foraminal stenosis. Th ere is mild central canal stenosis. C7-T1: Disc is bulging with annular fissure. There is mild bilateral uncovertebral joint osteoarthrit is. There is moderate left and severe right facet joint osteoarthritis. There is mild left and modera te right neural foraminal stenosis. There is mild to moderate central canal stenosis. IMPRESSION: 1. Moderate cervical spondylosis most notable for moderate central canal and moderate to severe bilat eral neural foraminal stenosis at C5-C6. Reviewed, dictated and finalized at location A. [facility] IMPRESSION: 1. Moderate cervical spondylosis most notable for moderate central canal and mo derate to severe bilateral neural foraminal stenosis at C5-C6.
--- OUTSIDE RECORDS SUMMARY | 2024-05-17 08:06 | XMS_ITS | Clinical Summary ---
Author Organization [facility] Address [address] [place] [address] Care Team Providers Care Contaminated Land Consultant Name Role Phone Diana Villa MD Primary Care Provider [phone] Madan Crocker MD Unavailable [phone] Allergies No known active allergies Medications [...] Myalgia 02/20/2016 Coronary artery disease invo lving [place] coronary artery of [place] heart without angina pectoris Overview (02/17/2016): [place] and stenting Primary hypercholesterolemia Essential hypertension Hx [...] this topic Insurance AETNA MEDICARE Care Teams Contaminated Land Consultant Relationship Specialty Start Date End Date Diana Villa MD [address] [place] [phone] PCP - General INTERNAL MEDICINE 02/18/16 Madan Crocker MD [address] [place] [address] CARDIOVASCULAR DISEASE 02/18/16
--- OUTSIDE RECORDS SUMMARY | 2024-05-17 08:06 | XMS_ITS | Referral Summary ---
Author Organization [facility] [address] [facility] Address [address] [place] [address] Care Team Providers Care Concrete Analyst Name Role Phone Diana Villa MD Primary Care Provider Encounters Date Type Department Care Team Description 05/08/[address] [facility] Orthopedics and Sports Medicine [address] [place] [address] [address] [phone] Janeth Steel MA 05/08/2024 11:45 AM RN LPN CNA Office Visit [facility] Orthopedics and Sports Medicine [address] [place] [address], [place] [phone] Yoel Dominique MD Carpal tunnel syndrome, left (Primary Dx); Arthritis of carpometacarpal (CMC) joint of left thumb; Arthritis of left wrist; Rotator cuff tendinitis, left 04/22/2024 7:54 AM RN LPN CNA - 04/22/2024 11:59 PM RN LPN CNA Hospital Encounter [facility] Orthopedics and Sports Medicine [address] [place] [address] [phone] Discharge Disposition: Discharge to home or self care 04/22/2024 11:15 AM RN LPN CNA Office Visit [facility] Orthopedics and Sports Medicine [address] [place] [address] [address] [place] [phone] Sherrie Dumont NP Left hand pain (Primary [...] PRF CHEST PAIN 6 Active fluticasone furoate-vilant [place] (BREO ELLIPTA) 100-25 mcg/dose diskus inhaler Breo [...] Diagnosed Date Coronary artery disease invo lving [place] coronary artery of [place] heart without angina pectoris 05/31/2022 Overview (05/31/2022): [place] and stenting Essential hypertension 05/31/2022 Hx of [...] on file Legal Sex Male 12:52 AM RN LPN CNA Gender Identity Male 04/09/2022 1:19 PM RN LPN CNA Sexual Orientation Not on file Last Filed Vital Signs Vital Sign Reading Time Taken Comments Blood Pressure 130/80 04/22/2024 11:06 AM RN LPN CNA Pulse 76 04/22/2024 11:06 AM RN LPN CNA Temperature - - Respiratory Rate - - Oxygen Saturation - - Inhaled Oxygen Concentration - - Weight 110.2 kg (243 lb) 05/08/2024 10:46 AM RN LPN CNA Height 160 cm (5' 3 ) 05/08/2024 10:46 AM RN LPN CNA Body Mass Index 43.05 05/08/2024 10:46 AM RN LPN CNA Plan of Treatment Not on file Procedures Procedure Name Priority Date/Time Associated Diagnosis Comments XR HAND LEFT 3 OR MORE VIEWS Schedule Routine, Read Routine (OP Routine) 04/22/2024 11:07 AM RN LPN CNA Left hand pain from Last 3 Months Results * XR Hand Left 3 or More Views (04/22/2024 11:07 AM RN LPN CNA) Anatomical Region Laterality Modality Upper Extremities, Hand Left Digital Radiography Narrative 04/24/2024 3:28 PM RN LPN CNA X-ray of the left hand viewed and interpreted. There is no evidence of fracture, subluxation, or bony abnormality. Diffuse osteoarthritis throughout most notably in CMC joint Sherrie Dumont EARLY CHILDHOOD ASSISTANT IMG XR PROCEDURES Final Result from Last 3 Months Insurance AETNA MEDICARE AETNA MEDICARE [facility] MEDICARE Care Teams Concrete Analyst Relationship Specialty Start Date End Date Diana Villa MD [address] [place] [address] PCP - General Internal Medicine 02/09/22
--- OUTSIDE RECORDS SUMMARY | 2024-05-17 08:06 | XMS_ITS | Clinical Summary ---
Author Organization [facility] [address] Address [address] [place] [address] Care Team Providers Care Revenue Cycle Administrator Name Role Phone Diana Villa MD Primary Care Provider [phone] Allergies No known active allergies Medications Breo [...] Diagnosed Date Coronary artery disease invo lving [place] coronary artery of [place] heart without angina pectoris 05/31/2022 Overview (05/31/2022): CO and stenting Essential hypertension 05/31/2022 Hx of acute myocardial infarction of inferior wa ll 05/31/2022 Primary hypercholesterolemia 05/31/2022 Pain in joint of right hip 01/02/2022 Bilateral carotid bruits 01/11/2017 S/P right coronary artery (RCA) stent placement 01/11/2017 Myalgia 02/20/2016 Encounters Date Type Department Care Team Description 05/08/2024 11:45 AM DIAL PRINTER Office Visit [facility] [address] [place] [phone] Yoel Dominique MD Carpal tunnel syndrome, left (Primary Dx); Arthritis of carpometacarpal (CMC) joint of left thumb; Arthritis of left wrist; Rotator cuff tendinitis, left 05/08/2024 Telephone [facility] [address] [facility] [facility] [address] [place] [address] Janeth Steel MA 04/22/2024 11:15 AM DIAL PRINTER Office Visit [facility] [address] [facility] [place] [phone] Sherrie Dumont NP Left hand pain (Primary Dx); Carpal tunnel syndrome of left wrist 04/22/2024 7:54 AM DIAL PRINTER - 04/22/2024 11:59 PM DIAL PRINTER Hospital Encounter [facility] [address] [facility] [facility] [address] [place] [phone] Discharge Disposition: Discharge to home or self [...] on file Legal Sex Male 12:52 AM DIAL PRINTER Gender Identity Male 04/09/2022 1:19 PM DIAL PRINTER Sexual Orientation Not on file Obstetrics History Last Filed Vital Signs Vital Sign Reading Time Taken Comments Blood Pressure 130/80 04/22/2024 11:06 AM DIAL PRINTER Pulse 76 04/22/2024 11:06 AM DIAL PRINTER Temperature - - Respiratory Rate - - Oxygen Saturation - - Inhaled Oxygen Concentration - - Weight 110.2 kg (243 lb) 05/08/2024 10:46 AM DIAL PRINTER Height 160 cm (5' 3 ) 05/08/2024 10:46 AM DIAL PRINTER Body Mass Index 43.05 05/08/2024 10:46 AM DIAL PRINTER Plan of Treatment Health Maintenance Due Date [...] Read Routine (OP Routine) 04/22/2024 11:07 AM DIAL PRINTER Left hand pain from Last 3 Months Results * XR Hand Left 3 or More Views (04/22/2024 11:07 AM DIAL PRINTER) Anatomical Region Laterality Modality Upper Extremities, Hand Left Digital Radiography Narrative 04/24/2024 3:28 PM DIAL PRINTER X-ray of the left hand viewed and interpreted. There is no evidence of fracture, subluxation, or bony abnormality. Diffuse osteoarthritis throughout most notably in CMC joint Sherrie Dumont NP IMG XR PROCEDURES Final Result from Last 3 Months Insurance [employer] MEDICARE A[employer] MEDICARE [facility] MEDICARE [facility] MED[facility] Address: [address] [place] [address] Care Teams Revenue Cycle Administrator Relationship Specialty Start Date End Date Diana Villa MD [address] [place] [address] PCP - General Internal Medicine 02/09/22
== END 2024-05-17 08:00 | disposition home or self-care (01) ==
LOC: CHSIMG 08:03
PROVIDERS: PCP Internal Medicine; Visit Provider Internal Medicine
DX: R53.1 Weakness (principal); M43.02 Spondylolysis, cervical region; M48.02 Spinal stenosis, cervical region
CPT/HCPCS: 72141

== ENCOUNTER 2024-05-29 15:45 | Outpatient (RCR) | payer MEDICARE, SELFPAY ==
--- NOTE | 2024-05-29 17:08 | OPREHPOC ---
Outpatient Therapy Plan of Care This is a Multidisciplinary Plan of Care that may contain components documented by all disciplines (PT, OT, and ST.) PT Problem 1 PT Problem #1 Knowledge Deficit PT Goal 1 Goal / Goal Update The patient will be independent in a home exercise program. Target Visit 2 PT Problem 2 PT Problem #2 Pain PT Goal 1 Goal / Goal Update The patient will report no greater than 2/10 neck pain with all daily activities. Target Visit 8 PT Problem 3 PT Problem #3 Impaired Sensation PT Goal 1 Goal / Goal Update The patient will report a 50% reduction in left UE parathesias with daily activities. Target Visit 8 PT Problem 4 PT Problem #4 Impaired Functional Mobility PT Goal 1 Goal / Goal Update The patient will demonstrate 30% or less self perceived disability per the Quick DASH questionnaire. The patient will improve left wheel lacer and truer strength to 35 # or greater to improve wheel lacer and truer ability. Target Visit 8 PT Problem 5 PT Problem #5 Impaired Range of Motion PT Goal 1 Goal / Goal Update The patient will demonstrate left shoulder flexion to 120 degrees to improve bathing/grooming ability. Target Visit 8
--- NOTE | 2024-05-29 17:08 | PTOPEVAL1 ---
Assessment and note entered by Carmina Carias, PT Evaluation Information Assessment Status Evaluation Other ICD-10 Condition Codes ( M75.82, M48.02 PT) Onset 05/23/24 Subjective Information Marvin Victor reports he is having weakness in his left > right upper extremity that has started about one year ago. He has had a MRI of the shoulder that showed mild arthritis. He had a cortisone injection in the left shoulder that helped decrease some of the numbness and tingling in his left finger. He then had a MRI of his cervical spine that showed spinal stenosis. He now has tingling in the left thumb, index, and middle finger. He has difficulty lifting items with the left arm and he has decreased dexterity in his left hand as well. He has dropped items that he was holding in his left arm. He has pain but it is not intense and not waking him at night. He has pain in the left side of the neck that moves into his shoulder blade. He will see a neurologist for the first time on 06/10/24. Reported Pain Level Pain Score 3: Self Report Assessment PT Clinical Summary Cayetano Victor presents with left upper extremity weakness and neck and shoulder pain. He has had a MRI of the cervical spine that showed spinal stenosis and a MRI of the left shoulder that showed arthritis. He had an injection to the left shoulder which has reduced pain in the shoulder. He now has mild lower neck pain and numbness and weakness in the left UE. He has difficulty gripping items with his left hand which leads to difficulty with grooming and lifting items with the left UE. He objectively demonstrates decreased cervical AROM, decreased left assistive technology trainer strength, decreased left shoulder flexion and abduction strength, decreased left elbow flexion and wrist extension strength. He will benefit from skilled PT to address these limitations. Plan of Care Interventions Electrical Stimulation,Hot Pack/Cold Pack,Manual Therapy,Mechanical Traction,Neuro Re-education, Patient/Caregiver Education,Therapeutic Activities ,Therapeutic Exercise PT Services Indicated Yes Treatment Frequency and 2 times a week for 8 visits Duration These treatments will address the objective and functional deficits as defined above. The patient will be advanced safely and appropriately in order for the patient to progress towards his/her prior level of function. Additional exercises will be introduced and as well as a comprehensive home exercise program upon discharge, if needed, ?to ensure carryover of functional gains achieved in the clinic. This treatment plan has been reviewed and agreement upon by the patient.
== END 2024-08-27 23:59 | disposition home or self-care (01) ==
LOC: CHSPT 15:45
DX: M75.82 Other shoulder lesions, left shoulder (principal); M48.02 Spinal stenosis, cervical region
CPT/HCPCS: 97012; 97014; 97110; 97140; 97161; G0283

== ENCOUNTER 2024-06-17 09:57 | Outpatient (CLI) | payer MEDICARE, SELFPAY ==
--- NOTE | ~2024-06-17 | DEXA_ITS ---
Bone Density Report Name: ARIEL CHERRY Age: 73 Sex: Male Ethnicity: White Date of : 1950 Indication: screening for osteoporosis; height loss; prior fracture; Referring Provider: ROBLESIWONA Study: Bone densitometry was performed. Exam Date: June 17, 2024 Accession number: [id number] Bone Density: Region BMD T-score Z-score Classification AP Spine(L1, L2, L4) 1.497 3.7 4.7 Normal Femoral Neck (Left) 0.895 -0.3 1.0 Normal Total Hip (Left) 1.140 0.7 1.5 Normal World Health Organization criteria for BMD impression classify patients as: Normal (T-score at or above -1.0), Osteopenia (T-score between -1.0 and -2.5), or Osteoporosis (T-score at or below -2.5). 10-year Fracture Risk: FRAX not reported because: All T-scores for Spine Total, Hip Total, Femoral Neck at or above -1.0 Prior hip or vertebral fracture Clinical Information Provided by Patient: Have had a previous hip or vertebral fracture Has had a low trauma fracture Patient maximum height was 65.5 No regular weight bearing exercise Drinks caffeinated beverages Impression: The patient has normal bone mass. The patient has risk factors, including: previous fracture. Discussion: INCREASED RISK OF FRACTURE DUE TO HISTORY OF LOW TRAUMA FRACTURE. The patient's previous fracture puts the patient at high risk of a future fracture. In untreated patients, the risk of osteoporotic fracture increases approximately two-fold for each 1.0 SD decrease in T-score. Low bone density is not the only risk factor for fracture; also consider factors such as patient's age, frailty or poor health, risk of falling, risk of injury, previous osteoporotic fracture, family history of osteoporosis, cigarette smoking, low body weight, etc. Not everyone with a low trauma fracture has osteoporosis; osteomalacia and other metabolic bone disorders should also be considered. Patients who have osteoporosis should be evaluated for specific diseases and conditions (secondary causes) that may cause or contribute to bone loss and fracture risk. National Osteoporosis Foundation (NOF) recommends pharmacologic intervention for patients with a prior low trauma hip or vertebral fracture regardless of BMD T-score. The patient should follow a healthful lifestyle (good nutrition with adequate calcium and vitamin D, and appropriate weight-bearing exercise). Follow-Up: Consider a repeat BMD and Vertebral Fracture Assessment (VFA) exam in 2 years or sooner if medically necessary, to reassess this patient's status. Reported by: ELAINE on 06/17/2024 10:32:00 AM. Reviewed, dictated and finalized at location A.
--- OUTSIDE RECORDS SUMMARY | 2024-06-17 11:07 | XMS_ITS | Clinical Summary ---
Author Organization [facility] [address] [facility] Address [address] [place] [address] Care Team Providers Care Seafood Service Team Member Name Role Phone Diana Villa MD Primary Care Provider [phone] Allergies No known active allergies Medications Breo Ellipta 100-25 mcg/dose diskus inhaler 2 Active HYDROcodone-omar taminophen (NORCO) 10-325 mg per tablet Take 1 tablet by mouth every 4 (four) hours as needed for pain 2 Active losartan-hydroC HLOROthiazide (HYZAAR) 50-12.5 mg per tablet 2 Active [...] DOSES PRF CHEST PAIN 6 Active fluticasone furoate-vilante roL (BREO ELLIPTA) 100-25 mcg/dose diskus inhaler Breo Ellipta 100 mcg-25 mcg/dose powder for inhalation Active celecoxib (CeleBREX) 200 mg capsule TAKE 1 CAPSULE (200 MG) BY MOUTH EVERY DAY 3 Active Hospital, Clinic, or Other Facility Administered Medication Ordered Dose Route Frequency Start Date End Date Status BUPivacaine HCl (MARCAINE) 0.25 % (2.5 mg/mL) injection 4 mLIndications:Rota tor cuff tendinitis, left 4 mL OTHER One-Time Injection 05/23/2024 05/23/2024 Ended methylPREDNISolone acetate (DEPO-medrol) injection 40 mgIndications:Rota tor cuff tendinitis, left 40 mg intra-artic One-Time Injection 05/23/2024 05/23/2024 Ended Active Problems Problem Noted Date Diagnosed Date Coronary artery disease invo lving [place] coronary artery of [place] heart without angina pectoris 05/31/2022 Overview (05/31/2022): ND and stenting Essential hypertension 05/31/2022 Hx of acute myocardial infarction of inferior wa ll 05/31/2022 Primary hypercholesterolemia 05/31/2022 Pain in joint of right hip 01/02/2022 Bilateral carotid bruits 01/11/2017 S/P right coronary artery (RCA) stent placement 01/11/2017 Myalgia 02/20/2016 Encounters Date Type Department Care Team Description 06/13/2024 Orders Only [facility] Neurosurgery [address] [facility] 6th [place] [address] [place] [address] Gregorio Castro MD Age-related osteoporosis with current pathological fracture of vertebra, initial encounter (HCC) (Primary Dx) 06/10/2024 11:30 AM CDT Office Visit [facility] Neurosurgery [facility] Medical Office Building [address] [place] [address] Henry Dill PA Age-related osteoporosis with current pathological fracture of vertebra, initial encounter (HCC) (Primary Dx); Degenerative disc disease, cervical; Degenerative joint disease of cervical and lumbar spine; Bilateral hand numbness 06/10/2024 11:00 AM CDT - 06/10/2024 11:59 PM CDT Hospital Encounter [facility] [address] [place] [address] [address] [place] [address] Cervical pain (neck); Lumbar pain Discharge Disposition: Discharge to home or self care 06/10/2024 Telephone [facility] Neurosurgery [address] [place] [address] Medical Office Building [address] [place] [phone] Henry Dill PA 06/06/2024 Orders Only [facility] Neurosurgery [address] [place] [address] Medical Office Building [address] [place] [address] Henry Dill PA Cervical pain (neck) (Primary Dx); Lumbar pain 05/23/2024 8:50 AM GUEST SERVICES DIRECTOR - 05/23/2024 11:59 PM GUEST SERVICES DIRECTOR Hospital Encounter [facility] [address] [place] [address] Acute pain of left shoulder Discharge Disposition: Discharge to home or self care 05/23/2024 8:30 AM GUEST SERVICES DIRECTOR Office Visit [facility] Orthopaedic Surgery [address] [place] [address] 2nd Floor [address] [place] [address] David Moore PA Rotator cuff tendinitis, left (Primary Dx); Acute pain of left shoulder; Spinal stenosis in cervical region 05/21/2024 9:57 AM GUEST SERVICES DIRECTOR - 05/21/2024 11:59 PM GUEST SERVICES DIRECTOR Hospital Encounter [facility] [address] [place] [address] Discharge Disposition: Discharge to home or self care 05/21/2024 9:55 AM GUEST SERVICES DIRECTOR - 05/21/2024 11:59 PM GUEST SERVICES DIRECTOR Hospital Encounter [facility] Radiology [facility] [place] [address] Discharge Disposition: Discharge to home or self care 05/21/2024 9:53 AM GUEST SERVICES DIRECTOR - 05/21/2024 11:59 PM GUEST SERVICES DIRECTOR Hospital Encounter [facility] Radiology [facility] [address] [place] [address] Discharge Disposition: Discharge to home or self care 05/21/2024 Telephone [facility] Scheduling [address] [place] [address] Arthur Gardnercia 05/20/2024 Orders Only [facility] Orthopedics and Sports Medicine [address] [place] [address] [address] [place] [address] Yoel Dominique MD Acute pain of left shoulder (Primary Dx) 05/08/2024 11:45 AM GUEST SERVICES DIRECTOR Office Visit [facility] Medicine [address] [place] [address] [address] [place] [address] Yoel Dominique MD Carpal tunnel syndrome, left (Primary Dx); Arthritis of carpometacarpal (CMC) joint of left thumb; Arthritis of left wrist; Rotator cuff tendinitis, left 05/08/2024 Telephone [facility] [address] [place] [address] [address] [place] [address] Janeth Steel MA 04/22/2024 11:15 AM GUEST SERVICES DIRECTOR Office Visit [facility] [address] [place] [address] [address] [place] [address] Sherrie Dumont NP Left hand pain (Primary Dx); Carpal tunnel syndrome of left wrist 04/22/2024 7:54 AM GUEST SERVICES DIRECTOR - 04/22/2024 11:59 PM GUEST SERVICES DIRECTOR Hospital Encounter [facility] [address] [place] [address] [address] [place] [address] Discharge Disposition: Discharge to home or self [...] on file Legal Sex Male 12:52 AM GUEST SERVICES DIRECTOR Gender Identity Male 04/09/2022 1:19 PM GUEST SERVICES DIRECTOR Sexual Orientation Not on file Obstetrics History Last Filed Vital Signs Vital Sign Reading Time Taken Comments Blood Pressure 130/80 04/22/2024 11:06 AM GUEST SERVICES DIRECTOR Pulse 76 04/22/2024 11:06 AM GUEST SERVICES DIRECTOR Temperature - - Respiratory Rate - - Oxygen Saturation - - Inhaled Oxygen Concentration - - Weight 108 kg (238 lb) 06/10/2024 11:51 AM CDT Height 160 cm (5' 3 ) 06/10/2024 11:51 AM CDT Body Mass Index 42.16 06/10/2024 11:51 AM CDT Plan of Treatment Health Maintenance Due Date Last Done Comments Colon Cancer Screening-Colonoscopy 1950 Depression Screening 1950 Fall Risk Assessment 1950 Hepatitis C Screening 1950 DTaP/Tdap/Td Vaccine (1 - Tdap) 1961 Hepatitis B Screening 1968 Pneumococcal vaccine 65+ (1 of 1 - PCV) 2000 Zoster Vaccine (1 of 2) 2000 Well Visit 65+ 07/31/2015 Influenza Vaccine (#1) 2023 Procedures Procedure Name Priority Date/Time Associated Diagnosis Comments XR SCOLIOSIS 6 OR MORE VIEWS Schedule Routine, Read Routine (OP Routine) 06/10/2024 11:46 AM CDT Cervical pain (neck) Lumbar pain XR SHOULDER LEFT 2 OR MORE VIEWS Schedule Routine, Read Routine (OP Routine) 05/23/2024 9:03 AM GUEST SERVICES DIRECTOR Acute pain of left shoulder ND ARTHROCENTESIS ASPIR&/INJ MAJOR JT/BURSA W/O US Routine 05/23/2024 8:30 AM GUEST SERVICES DIRECTOR Rotator cuff tendinitis, left MSK MR OUTSIDE REFERENCE Routine 05/21/2024 9:57 AM GUEST SERVICES DIRECTOR NEURO MR OUTSIDE REFERENCE Routine 05/21/2024 9:55 AM GUEST SERVICES DIRECTOR XR TRANSFER OF OUTSIDE FILMS Routine 05/21/2024 9:53 AM GUEST SERVICES DIRECTOR XR HAND LEFT 3 OR MORE VIEWS Schedule Routine, Read Routine (OP Routine) 04/22/2024 11:07 AM GUEST SERVICES DIRECTOR Left hand pain from Last 3 Months Results * XR Scoliosis 6 or More Views (06/10/2024 11:46 AM CDT) Anatomical Region Laterality Modality Spine N/A Computed Radiogr aphy 06/10/2024 2:19 PM CDT Impressions 06/10/2024 4:23 PM CDT 1. Mild levocurvature of the lumbar spine. 2. Multilevel moderate cervical degenerative disc disease with a lucency at the tip of the dens which may represent the sequela of severe degenerative changes. 3. Multilevel moderate degenerative disc disease of the lumbar spine with severe lower lumbar facet osteoarthritis. Dictated by: Jayesh Goff MD The radiology attending physician has personally reviewed this study, and had reviewed and/or edited this written report and agrees with it. Electronically signed by: Moisés Zhao D.O. Narrative 06/10/2024 4:23 PM CDT EXAMINATION: XR SCOLIOSIS 6 OR MORE VIEWS HISTORY: Cervical and lumbar pain. FINDINGS: Comparison is made to radiograph dated 05/09/2024. There is mild levocurvature of the lumbar spine. There is no coronal imbalance. There is no pelvic obliquity. There is no sagittal imbalance. There is no listhesis. There is no abnormal motion upon bending. There is multilevel moderate degenerative disc disease of the lumbar spine which is most progressed in the upper lumbar levels. There is severe lower lumbar level facet osteoarthritis. There is [place]'s disease of lumbar spine. There is no compression fracture. There is mild anterolisthesis of C4 on C5 which is exaggerated on flexion views and slightly reduces on extension views. There is a lucency at the superior aspect of the dens. There is no prevertebral soft tissue swelling. There is multilevel degenerative disc disease which is most progressed and severe at C5-C6. There is multilevel moderate to severe facet osteoarthritis. Uncovertebral joint hypertrophy is noted bilaterally. There is bilateral severe carotid bifurcation calcifications. Right hip replacement. Right knee replacement. Procedure Note Cece Moisés Hoang, DO - 06/10/2024 EXAMINATION: XR SCOLIOSIS 6 OR MORE VIEWS HISTORY: Cervical and lumbar pain. FINDINGS: Comparison is made to radiograph dated 05/09/2024. There is mild levocurvature of the lumbar spine. There is no coronal imbalance. There is no pelvic obliquity. There is no sagittal imbalance. There is no listhesis. There is no abnormal motion upon bending. There is multilevel moderate degenerative disc disease of the lumbar spine which is most progressed in the upper lumbar levels. There is severe lower lumbar level facet osteoarthritis. There is [place]'s disease of lumbar spine. There is no compression fracture. There is mild anterolisthesis of C4 on C5 which is exaggerated on flexion views and slightly reduces on extension views. There is a lucency at the superior aspect of the dens. There is no prevertebral soft tissue swelling. There is multilevel degenerative disc disease which is most progressed and severe at C5-C6. There is multilevel moderate to severe facet osteoarthritis. Uncovertebral joint hypertrophy is noted bilaterally. There is bilateral severe carotid bifurcation calcifications. Right hip replacement. Right knee replacement. IMPRESSION: 1. Mild levocurvature of the lumbar spine. 2. Multilevel moderate cervical degenerative disc disease with a lucency at the tip of the dens which may represent the sequela of severe degenerative changes. 3. Multilevel moderate degenerative disc disease of the lumbar spine with severe lower lumbar facet osteoarthritis. Dictated by: Jayesh Goff MD The radiology attending physician has personally reviewed this study, and had reviewed and/or edited this written report and agrees with it. Electronically signed by: Moisés Zhao D.O. us Henry HARRISON IMG XR PROCEDURES Mireille l Result * XR Shoulder Left 2 or More Views (05/23/2024 9:03 AM GUEST SERVICES DIRECTOR) Anatomical Region Laterality Modality Upper Extremities, Shoulder Left Comp uted Radiography 05/23/2024 9:07 AM GUEST SERVICES DIRECTOR Impressions 05/23/2024 9:07 AM GUEST SERVICES DIRECTOR Moderate left acromioclavicular and glenohumeral joint osteoarthritis. Electronically signed by: Madan Elizondo M.D. Narrative 05/23/2024 9:07 AM GUEST SERVICES DIRECTOR EXAMINATION: XR SHOULDER LEFT 2 OR MORE VIEWS HISTORY: Acute left shoulder pain COMPARISON: None available FINDINGS: Moderate left acromioclavicular and glenohumeral joint osteoarthritis. No acute fracture or dislocation. Surgical clips are noted in the left forearm, partially imaged. Partially imaged cervical degenerative disc and facet disease. Procedure Note Madan Elizondo MD - 05/23/2024 EXAMINATION: XR SHOULDER LEFT 2 OR MORE VIEWS HISTORY: Acute left shoulder pain COMPARISON: None available FINDINGS: Moderate left acromioclavicular and glenohumeral joint osteoarthritis. No acute fracture or dislocation. Surgical clips are noted in the left forearm, partially imaged. Partially imaged cervical degenerative disc and facet disease. IMPRESSION: Moderate left acromioclavicular and glenohumeral joint osteoarthritis. Electronically signed by: Madan Elizondo M.D. David HARRISON IMG XR PROCEDURES Final Result * ND ARTHROCENTESIS ASPIR&/INJ MAJOR JT/BURSA W/O US (05/23/2024 8:30 AM GUEST SERVICES DIRECTOR) Narrative David Moore PA - 05/23/2024 8:30 AM GUEST SERVICES DIRECTOR David Moore PA 05/23/2024 9:43 AM Large Joint Injection: L subacromial bursa Performed by: David Moore PA Authorized by: aDvid Moore PA Large Joint Injection/Aspiration: Consent Given by: Patient Timeout: prior to procedure the correct patient, procedure, and site was verified Verbal consent obtained: Yes Supporting Documentation: Indications: Pain Procedure Details: Location: Shoulder Site: L subacromial bursa Prep: patient was prepped using a clean technique (Betadine and alcohol) Needle Size: 22 G Approach: Posterior Ultrasound guided: No Fluroscopic guidance: No Medications: 40 mg methylPREDNISolone acetate 40 mg/mL; 4 mL BUPivacaine HCl 0.25 % (2.5 mg/mL) Patient tolerance: Patient tolerated the procedure well with no immediate complications David HARRISON IN CLINIC/BEDSIDE ORDERABLES Fi nal Result * MSK MR Outside Reference (05/21/2024 9:57 AM GUEST SERVICES DIRECTOR) Impressions RAD_PACS_[facility] - 05/21/2024 9:57 AM GUEST SERVICES DIRECTOR These images are for Reference purposes only and have not been reviewed by [facility] Radiology. There will be no report generated by a [facility] Radiologist. Narrative RAD_PACS_[facility] - 05/21/2024 9:57 AM GUEST SERVICES DIRECTOR EXAMINATION: Images For Reference Purposes Only Gregorio Castro MD IMG MRI PROCEDURES Final Result Performing Organization Address [facility] Co de Phone Number RAD_PACS[facility] * Neuro MR Outside Reference (05/21/2024 9:55 AM GUEST SERVICES DIRECTOR) Impressions RAD_PACS_[facility] - 05/21/2024 9:55 AM GUEST SERVICES DIRECTOR These images are for Reference purposes only and have not been reviewed by [facility] Radiology. There will be no report generated by a [facility] Radiologist. Narrative RAD_PACS_[facility] - 05/21/2024 9:55 AM GUEST SERVICES DIRECTOR EXAMINATION: Images For Reference Purposes Only Gregorio Castro MD IM MRI PROCEDURES Final Result Performing Organization Address City/[facility]/ZIP Co de Phone Number RAD_PACS[facility] * XR Outside Reference (05/21/2024 9:53 AM GUEST SERVICES DIRECTOR) Impressions [facility] - 05/21/2024 9:53 AM GUEST SERVICES DIRECTOR These images are for Reference purposes only and have not been reviewed by [facility] Radiology. There will be no report generated by a [facility] Radiologist. Narrative [facility] - 05/21/2024 9:53 AM GUEST SERVICES DIRECTOR EXAMINATION: Images For Reference Purposes Only us Gregorio Castro MD IMG XR PROCEDURES Final Result [facility] * XR Hand Left 3 or More Views (04/22/2024 11:07 AM GUEST SERVICES DIRECTOR) Anatomical Region Laterality Modality Upper Extremities, Hand Left Digital Radiography Narrative 04/24/2024 3:28 PM GUEST SERVICES DIRECTOR X-ray of the left hand viewed and interpreted. There is no evidence of fracture, subluxation, or bony abnormality. Diffuse osteoarthritis throughout most notably in CMC joint us Sherrie Dumont NP IMG XR PROCEDURES Final Result from Last 3 Months Insurance [employer] MEDICARE [facility] MED[facility] Address: [facility] [id number] [place] [id number] AETNA MEDICARE [facility] Address: [facility] [address] [place] [address] [employer] MEDICARE Care Teams Seafood Service Team Member Relationship Specialty Start Date End Date Diana Villa MD [address] [place], [place] [id number] PCP - General Internal Medicine 02/09/22
--- OUTSIDE RECORDS SUMMARY | 2024-06-17 11:07 | XMS_ITS | Clinical Summary ---
Author Organization [facility] Address [address] [place] [address] Care Team Providers Care Dental Ceramist Assistant Name Role Phone Diana Villa MD Primary Care Provider Madan Crocker MD Unavailable [phone] Allergies No known active allergies Medications [...] Myalgia 02/20/2016 Coronary artery disease invo lving [place] coronary artery of [place] heart without angina pectoris Overview (02/17/2016): [place] and stenting Primary hypercholesterolemia Essential hypertension Hx [...] this topic Insurance [employer] MEDICARE Care Teams Dental Ceramist Assistant Relationship Specialty Start Date End Date Diana Villa MD [address] [place] [id number] PCP - General INTERNAL MEDICINE 02/18/16 Madan Crokcer MD [address] [place] [address] CARDIOVASCULAR DISEASE 02/18/16
--- OUTSIDE RECORDS SUMMARY | 2024-06-17 11:07 | XMS_ITS | Encounter Summary ---
Author Organization [facility] Address [address] [place] [address] Phone Care Team Providers Care Manager Architecture Name Role Phone Diana Villa MD Primary Care Provider Encounter Details Date Type Department Care Team (Late st Contact Info) Description 06/10/2024 Telephone [facility] Neurosurgery [address] [facility] Medical Office Building [address] [place] [address] Henry Dill PA [address] [place] [address] Social History Tobacco Use Types Packs/Day Years [...] on file Legal Sex Male 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 * Telephone Encounter - Ana Kinney - 06/17/2024 10:00 AM CDT Jaja from [facility] called again asking if the order for pt's CT cervical can be sent to them as pt wishes to have CT there. Fax number is [phone]. Thanks * Telephone Encounter - Tamra Banks - 06/11/2024 9:30 AM CDT Jaja from [facility] needs a ct cervical order authorized Fax: [phone] * Telephone Encounter - Lexus Huffman CMA - 06/10/2024 2:42 PM CDT Spoke with patient and family to schedule CM appt. Due to CM scheduling conflicts 07/09 is the next available, 06/11 was offered to the patient, but unable to attend due to short notice. Informed the patient to report to the ED if he has any worsening symptoms before appt or to contact office. * Telephone Encounter - Henry Dill PA - 06/10/2024 12:40 PM CDT Can we schedule with Dr. Matthew MARQUES for cervical myelopathy/surgical eval. Thank you, Henry Dill PA-C [facility] Neurosurgery documented in this encounter Plan of Treatment Not on file documented as of this encounter Visit Diagnoses Not on filedocumented in this encounter Care Teams Manager Architecture Relationship Specialty Start Date End Date Diana Villa MD [address] [place] [place] [id number] PCP - General Internal Medicine 02/09/22 documented as of this encounter
--- OUTSIDE RECORDS SUMMARY | 2024-06-17 11:07 | XMS_ITS | Referral Summary ---
Author Organization [facility] [address] [facility] Address [address] [place] [address] Care Team Providers Care Car Repairer Pullman Name Role Phone Diana Villa MD Primary Care Provider [phone] Encounters Date Type Department Care Team Description 06/13/2024 Orders Only [facility] Neurosurgery [address] [facility] 6th [place] [address] [place] [address] Gregorio Castro MD Age-related osteoporosis with current pathological fracture of vertebra, initial encounter (HCC) (Primary Dx) 06/10/2024 Telephone [facility] Neurosurgery [address] [place] [address] 4 [address] [place] [address] Henry Dill PA 06/10/2024 11:00 AM CDT - 06/10/2024 11:59 PM CDT Hospital Encounter [facility] [address] [place] [address] [address] [place] [address] Cervical pain (neck); Lumbar pain Discharge Disposition: Discharge to home or self care 06/10/2024 11:30 AM CDT Office Visit [facility] Neurosurgery [address] [place] [address] [address] [place] [address] Henry Dill PA Age-related osteoporosis with current pathological fracture of vertebra, initial encounter (HCC) (Primary Dx); Degenerative disc disease, cervical; Degenerative joint disease of cervical and lumbar spine; Bilateral hand numbness 06/06/2024 Orders Only [facility] Neurosurgery [address] [facility] Building [address] [place] [address] Henry Dill PA Cervical pain (neck) (Primary Dx); Lumbar pain 05/23/2024 8:50 AM COMPUTER PUBLISHER - 05/23/2024 11:59 PM COMPUTER PUBLISHER Hospital Encounter [facility] [address] [place] [address] Acute pain of left shoulder Discharge Disposition: Discharge to home or self care 05/23/2024 8:30 AM COMPUTER PUBLISHER Office Visit [facility] Orthopaedic Surgery [address] [place] [address] 2nd Floor [address] [place] [address] David Moore PA Rotator cuff tendinitis, left (Primary Dx); Acute pain of left shoulder; Spinal stenosis in cervical region 05/21/2024 9:57 AM COMPUTER PUBLISHER - 05/21/2024 11:59 PM COMPUTER PUBLISHER Hospital Encounter [facility] [address] [place] [address] Discharge Disposition: Discharge to home or self care 05/21/2024 9:55 AM COMPUTER PUBLISHER - 05/21/2024 11:59 PM COMPUTER PUBLISHER Hospital Encounter [facility] [address] [place] [address] Discharge Disposition: Discharge to home or self care 05/21/2024 9:53 AM COMPUTER PUBLISHER - 05/21/2024 11:59 PM COMPUTER PUBLISHER Hospital Encounter [facility] [address] [place] [address] Discharge Disposition: Discharge to home or self care 05/21/2024 Telephone [facility] Scheduling [facility] [place] [address] Salina Gardner 05/20/2024 Orders Only [facility] Orthopedics and Sports Medicine [address] [facility] [address] [place] [address] Yoel Dominique MD Acute pain of left shoulder (Primary Dx) 05/08/2024 Telephone [facility] Orthopedics and Sports Medicine [address] [place] [address] Janeth Steel MA 05/08/2024 11:45 AM COMPUTER PUBLISHER Office Visit [facility] [address] [place] [address] [address] [place] [address] Yoel Dominique MD Carpal tunnel syndrome, left (Primary Dx); Arthritis of carpometacarpal (CMC) joint of left thumb; Arthritis of left wrist; Rotator cuff tendinitis, left 04/22/2024 7:54 AM COMPUTER PUBLISHER - 04/22/2024 11:59 PM COMPUTER PUBLISHER Hospital Encounter [facility] [address] [place] [address] [address], [place] [address] Discharge Disposition: Discharge to home or self care 04/22/2024 11:15 AM COMPUTER PUBLISHER Office Visit [facility] [address] [place] [address] [address] [place] [address] Sherrie Dumont NP Left hand pain (Primary [...] Diagnosed Date Coronary artery disease invo lving [place] coronary artery of [place] heart without angina pectoris 05/31/2022 Overview (05/31/2022): [place] and stenting Essential hypertension 05/31/2022 Hx of [...] on file Legal Sex Male 12:52 AM COMPUTER PUBLISHER Gender Identity Male 04/09/2022 1:19 PM COMPUTER PUBLISHER Sexual Orientation Not on file Last Filed Vital Signs Vital Sign Reading Time Taken Comments Blood Pressure 130/80 04/22/2024 11:06 AM COMPUTER PUBLISHER Pulse 76 04/22/2024 11:06 AM COMPUTER PUBLISHER Temperature - - Respiratory Rate - - Oxygen Saturation - - Inhaled Oxygen Concentration - - Weight 108 kg (238 lb) 06/10/2024 11:51 AM CDT Height 160 cm (5' 3 ) 06/10/2024 11:51 AM CDT Body Mass Index 42.16 06/10/2024 11:51 AM CDT Plan of Treatment Not on file Procedures Procedure Name Priority Date/Time Associated Diagnosis Comments XR SCOLIOSIS 6 OR MORE VIEWS Schedule Routine, Read Routine (OP Routine) 06/10/2024 11:46 AM CDT Cervical pain (neck) Lumbar pain XR SHOULDER LEFT 2 OR MORE VIEWS Schedule Routine, Read Routine (OP Routine) 05/23/2024 9:03 AM COMPUTER PUBLISHER Acute pain of left shoulder [place] ARTHROCENTESIS ASPIR&/INJ MAJOR JT/BURSA W/O US Routine 05/23/2024 8:30 AM COMPUTER PUBLISHER Rotator cuff tendinitis, left MSK MR OUTSIDE REFERENCE Routine 05/21/2024 9:57 AM COMPUTER PUBLISHER NEURO MR OUTSIDE REFERENCE Routine 05/21/2024 9:55 AM COMPUTER PUBLISHER XR TRANSFER OF OUTSIDE FILMS Routine 05/21/2024 9:53 AM COMPUTER PUBLISHER XR HAND LEFT 3 OR MORE VIEWS Schedule Routine, Read Routine (OP Routine) 04/22/2024 11:07 AM COMPUTER PUBLISHER Left hand pain from Last 3 Months [...] lower lumbar level facet osteoarthritis. 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 There is no [...] hip replacement. Right knee replacement. Procedure Note Moisés Zhao, - 06/10/2024 EXAMINATION: XR SCOLIOSIS 6 OR [...] lower lumbar level facet osteoarthritis. 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 There is no [...] it. Electronically signed by: Moisés Zhao D.O. 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 Electronically signed by: Madan Elizondo M.D. Narrative 05/23/2024 9:07 AM COMPUTER PUBLISHER EXAMINATION: XR SHOULDER LEFT 2 OR MORE [...] HARRISON IMG XR PROCEDURES Final Result * [place] ARTHROCENTESIS ASPIR&/INJ MAJOR JT/BURSA W/O US (05/23/2024 8:30 AM COMPUTER PUBLISHER) Narrative David Moore PA - 05/23/2024 8:30 AM COMPUTER PUBLISHER David Moore PA 05/23/2024 9:43 AM Large Joint Injection: L subacromial bursa Performed by: David Moore PA Authorized by: David Moore PA Large Joint Injection/Aspiration: Consent Given [...] MSK MR Outside Reference (05/21/2024 9:57 AM COMPUTER PUBLISHER) Impressions RAD_PACS_BJ - 05/21/2024 9:57 AM COMPUTER PUBLISHER These images are for Reference purposes only and have not been reviewed by [facility]. There will be no report generated by a [facility] Radiologist. Narrative RAD_PACS_[facility] - 05/21/2024 9:57 AM COMPUTER PUBLISHER EXAMINATION: Images For Reference Purposes Only Result [facility] Gregorio Castro MD [facility] MRI PROCEDURES Final Result Performing Organization Address [facility] de Phone Number RAD_PACS_[facility] * Neuro MR Outside Reference (05/21/2024 9:55 AM COMPUTER PUBLISHER) Impressions RAD_GEOFF_SHOLA - 05/21/2024 9:55 AM COMPUTER PUBLISHER These images are for Reference purposes only and have not been reviewed by [facility]. There will be no report generated by a [facility] Radiologist. Narrative RAD_PACS_BJ - 05/21/2024 9:55 AM COMPUTER PUBLISHER EXAMINATION: Images For Reference Purposes Only Result [facility] Gregorio Castro MD [facility] MRI PROCEDURES Final Result Performing Organization Address [facility] Phone Number RAD_PACS_[facility] * XR Outside Reference (05/21/2024 9:53 AM COMPUTER PUBLISHER) Impressions RAD_GEOFF_BJ - 05/21/2024 9:53 AM COMPUTER PUBLISHER These images are for Reference purposes only and have not been reviewed by [facility]. There will be no report generated by a [facility] Radiologist. Narrative RAD_PACS_SHOLA - 05/21/2024 9:53 AM COMPUTER PUBLISHER EXAMINATION: Images For Reference Purposes Only Result [facility] Gregorio Castro MD G XR PROCEDURES Final Result Performing Organization Address [facility] de Phone Number RAD_PACS_[facility] * XR Hand Left 3 or More Views (04/22/2024 11:07 AM COMPUTER PUBLISHER) Anatomical Region Laterality Modality Upper Extremities, Hand Left Digital Radiography Narrative 04/24/2024 3:28 PM COMPUTER PUBLISHER X-ray of the left hand viewed and interpreted. There is no evidence of fracture, subluxation, or bony abnormality. Diffuse osteoarthritis throughout most notably in CMC joint Result [facility] Sherrie Oma Tim SKID STRAPPER IMG XR PROCEDURES Final Result from Last 3 Months Insurance AETNA MEDICARE AETNA MEDICARE AETNA MEDICARE Care Teams Car Repairer Pullman Relationship Specialty Start Date End Date Diana Villa MD [address] [phone] PCP - General Internal Medicine 02/09/22
== END 2024-06-17 09:58 | disposition home or self-care (01) ==
PROVIDERS: PCP Internal Medicine; Visit Provider Neurological Surgery
DX: M80.08XA Age-related osteoporosis with current pathological fracture, vertebra(e), initial encounter for fracture (principal)
CPT/HCPCS: 77080

== ENCOUNTER 2024-06-19 10:23 | Outpatient (CLI) | payer MEDICARE, SELFPAY ==
--- NOTE | ~2024-06-19 | CT_ITS ---
CT cervical spine wo con Ordering provider: ARACELI ARIAS, BELA History: . degenerative disc disease-C5/C6,GIORGI ARM WEAKNESS,X6MO,NKI . Comparison: None. Technique: CT of the cervical spine was performed without contrast. Sagittal and coronal reformatted images were also obtained and reviewed. Automated exposure control and iterative reconstruction emilia hnique were employed. The dose-length product was 458.56 mGy-cm. FINDINGS: VERTEBRAE: No subluxation or acute fracture. The occipital condyles are intact. Degenerative changes of the spine. Osteoarthritic changes of the middle atlantoaxial joint. DISC SPACES: Narrowing of the disc C5-C6 and C6-C7. Multilevel facet joint disease. Multilevel uncove rtebral joint osteoarthritic changes. C2-C3: Bilateral narrowing of the foramina by osteophytes. C3-C4: Bilateral narrowing of the foramina by osteophytes. C4-C5: Bilateral narrowing of the foramina by osteophytes. C5-C6: Moderate spinal canal stenosis. Bilateral narrowing of the foramina with nerve root compressio n by osteophytes C6-C7: Osteophytes with disc bulge. No significant narrowing of the foramina. PARASPINOUS SOFT TISSUES: Bilateral carotid atherosclerotic changes. Left thyroid nodule. IMPRESSION: No acute osseous abnormality cervical spine. Multilevel intervertebral foraminal narrowing. Moderate spinal canal stenosis at the level of C5-C6 with bilateral narrowing of the foramina and ner ve root compression by osteophytes. Reviewed, dictated and finalized at location A. IMPRESSION: No acute osseous abnormality cervical spine. Multilevel intervertebral foraminal narrowing. Moderate spinal canal stenosis at the level of C5-C6 with bilateral narrowing o f the foramina and nerve root compression by osteophytes.
--- OUTSIDE RECORDS SUMMARY | 2024-06-19 11:12 | XMS_ITS | Clinical Summary ---
Author Organization [facility] Address [address] [place] [address] Care Team Providers Care Office Auditor Name Role Phone Diana Villa MD Primary Care Provider Madan Crocker MD Unavailable [phone] Allergies No known active allergies Medications [...] Myalgia 02/20/2016 Coronary artery disease invo lving [place] coronary artery of [place] heart without angina pectoris Overview (02/17/2016): [place] and stenting Primary hypercholesterolemia Essential hypertension Hx [...] this topic Insurance AETNA MEDICARE Care Teams Office Auditor Relationship Specialty Start Date End Date Diana Villa MD [address] [place] [phone] PCP - General INTERNAL MEDICINE 02/18/16 Madan Crocker MD [address] [place] [address] CARDIOVASCULAR DISEASE 02/18/16
--- OUTSIDE RECORDS SUMMARY | 2024-06-19 11:12 | XMS_ITS | Referral Summary ---
Author Organization [facility] [address] [facility] Address [address] [place] [address] Care Team Providers Care Cloth Printer Name Role Phone Diana Villa MD Primary Care Provider Encounters Date Type Department Care Team Description 06/13/2024 Orders Only [facility] Neurosurgery [address] [facility] 6th [place] [address] [place] [address] Gregorio Castro MD Age-related osteoporosis with current pathological fracture of vertebra, initial encounter (HCC) (Primary Dx) 06/10/2024 Telephone [facility] Neurosurgery [address] [place] [address] 4 [address] [place] [address] Henry Dill PA 06/10/2024 11:00 AM CDT - 06/10/2024 11:59 PM CDT Hospital Encounter [facility] [address] [place] [address] [address] [place] [address] Cervical pain (neck); Lumbar pain Discharge Disposition: Discharge to home or self care 06/10/2024 11:30 AM CDT Office Visit [facility] Neurosurgery [address] [place] [address] [address] [place] [address] Henry Dill PA Age-related osteoporosis with current pathological fracture of vertebra, initial encounter (HCC) (Primary Dx); Degenerative disc disease, cervical; Degenerative joint disease of cervical and lumbar spine; Bilateral hand numbness 06/06/2024 Orders Only [facility] Neurosurgery [address] [facility] Medical Office Building [address] [place] [address] Henry Dill PA Cervical pain (neck) (Primary Dx); Lumbar pain 05/23/2024 8:50 AM HOT PRESS OPERATOR - 05/23/2024 11:59 PM HOT PRESS OPERATOR Hospital Encounter [facility] [address] [place] [address] Acute pain of left shoulder Discharge Disposition: Discharge to home or self care 05/23/2024 8:30 AM HOT PRESS OPERATOR Office Visit [facility] Orthopaedic Surgery [address] [place] [address] 2nd Floor [address] [place] [address] David Moore PA Rotator cuff tendinitis, left (Primary Dx); Acute pain of left shoulder; Spinal stenosis in cervical region 05/21/2024 9:57 AM HOT PRESS OPERATOR - 05/21/2024 11:59 PM HOT PRESS OPERATOR Hospital Encounter [facility] [address] [place] [address] Discharge Disposition: Discharge to home or self care 05/21/2024 9:55 AM HOT PRESS OPERATOR - 05/21/2024 11:59 PM HOT PRESS OPERATOR Hospital Encounter [facility] [address] [place] [address] Discharge Disposition: Discharge to home or self care 05/21/2024 9:53 AM HOT PRESS OPERATOR - 05/21/2024 11:59 PM HOT PRESS OPERATOR Hospital Encounter [facility] [address] [place] [address] Discharge Disposition: Discharge to home or self care 05/21/2024 Telephone [facility] Scheduling [facility] [place] [address] Salina Gardner 05/20/[address] [facility] Orthopedics and Sports Medicine [address] [facility] [address] [place] [address] Yoel Dominique MD Acute pain of left shoulder (Primary Dx) 05/08/2024 Telephone [facility]opedics [facility] Sports Medicine [address] [place] [address] Janeth Steel MA 05/08/2024 11:45 AM HOT PRESS OPERATOR Office Visit [facility] Orthopedics and Sports Medicine [address] [place] [address] [address] [place] [address] Yoel Dominique MD Carpal tunnel syndrome, left (Primary Dx); Arthritis of carpometacarpal (CMC) joint of left thumb; Arthritis of left wrist; Rotator cuff tendinitis, left 04/22/2024 7:54 AM HOT PRESS OPERATOR - 04/22/2024 11:59 PM HOT PRESS OPERATOR Hospital Encounter [facility] Orthopedics and Sports Medicine [address] [place] [address], [place] [address] Discharge Disposition: Discharge to home or self care 04/22/2024 11:15 AM HOT PRESS OPERATOR Office Visit [facility]opedics and Sports Medicine [address] [place] [address] [address] [place] [address] Sherrie Dumont NP Left hand pain (Primary [...] Diagnosed Date Coronary artery disease invo lving [place] coronary artery of [place] heart without angina pectoris 05/31/2022 Overview (05/31/2022): [place] and stenting Essential hypertension 05/31/2022 Hx of [...] on file Legal Sex Male 12:52 AM HOT PRESS OPERATOR Gender Identity Male 04/09/2022 1:19 PM HOT PRESS OPERATOR Sexual Orientation Not on file Last Filed Vital Signs Vital Sign Reading Time Taken Comments Blood Pressure 130/80 04/22/2024 11:06 AM HOT PRESS OPERATOR Pulse 76 04/22/2024 11:06 AM HOT PRESS OPERATOR Temperature - - Respiratory Rate - - [...] Read Routine (OP Routine) 05/23/2024 9:03 AM HOT PRESS OPERATOR Acute pain of left shoulder PA ARTHROCENTESIS ASPIR&/INJ MAJOR JT/BURSA W/O US Routine 05/23/2024 8:30 AM HOT PRESS OPERATOR Rotator cuff tendinitis, left MSK MR OUTSIDE REFERENCE Routine 05/21/2024 9:57 AM HOT PRESS OPERATOR NEURO MR OUTSIDE REFERENCE Routine 05/21/2024 9:55 AM HOT PRESS OPERATOR XR TRANSFER OF OUTSIDE FILMS Routine 05/21/2024 9:53 AM HOT PRESS OPERATOR XR HAND LEFT 3 OR MORE VIEWS Schedule Routine, Read Routine (OP Routine) 04/22/2024 11:07 AM HOT PRESS OPERATOR Left hand pain from Last 3 Months [...] lower lumbar level facet osteoarthritis. 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 There is no [...] lower lumbar level facet osteoarthritis. 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 Electronically signed by: Madan Elizondo M.D. Narrative 05/23/2024 9:07 AM HOT PRESS OPERATOR EXAMINATION: XR SHOULDER LEFT 2 OR MORE [...] HARRISON IMG XR PROCEDURES Final Result * [place] ARTHROCENTESIS ASPIR&/INJ MAJOR JT/BURSA W/O US (05/23/2024 8:30 AM HOT PRESS OPERATOR) Narrative David Moore PA - 05/23/2024 8:30 AM HOT PRESS OPERATOR David Moore PA 05/23/2024 9:43 AM Large [...] MSK MR Outside Reference (05/21/2024 9:57 AM HOT PRESS OPERATOR) Impressions RAD_PACS_BJ - 05/21/2024 9:57 AM HOT PRESS OPERATOR These images are for Reference purposes only and have not been reviewed by [facility] Radiology. There will be no report generated by a [facility] Radiologist. Narrative RAD_PACS_[facility] - 05/21/2024 9:57 AM HOT PRESS OPERATOR EXAMINATION: Images For Reference Purposes Only Result [facility] Gregorio Castro MD [facility] MRI PROCEDURES Final Result Performing Organization Address [facility] de Phone Number RAD_PACS_[facility] * Neuro MR Outside Reference (05/21/2024 9:55 AM HOT PRESS OPERATOR) Impressions RAD_GEOFF_SHOLA - 05/21/2024 9:55 AM HOT PRESS OPERATOR These images are for Reference purposes only and have not been reviewed by [facility] Radiology. There will be no report generated by a [facility] Radiologist. Narrative RAD_PACS_BJ - 05/21/2024 9:55 AM HOT PRESS OPERATOR EXAMINATION: Images For Reference Purposes Only Result [facility] Gregorio Castro MD [facility] MRI PROCEDURES Final Result Performing Organization Address [facility] Phone Number RAD_PACS_[facility] * XR Outside Reference (05/21/2024 9:53 AM HOT PRESS OPERATOR) Impressions RAD_GEOFF_BJ - 05/21/2024 9:53 AM HOT PRESS OPERATOR These images are for Reference purposes only and have not been reviewed by [facility] Radiology. There will be no report generated by a [facility] Radiologist. Narrative RAD_PACS_SHOLA - 05/21/2024 9:53 AM HOT PRESS OPERATOR EXAMINATION: Images For Reference Purposes Only Result [facility] Gregorio Castro MD G XR PROCEDURES Final Result Performing Organization Address [facility] de Phone Number [email or web address] * XR Hand Left 3 or More Views (04/22/2024 11:07 AM HOT PRESS OPERATOR) Anatomical Region Laterality Modality Upper Extremities, Hand Left Digital Radiography Narrative 04/24/2024 3:28 PM HOT PRESS OPERATOR X-ray of the left hand viewed and interpreted. There is no evidence of fracture, subluxation, or bony abnormality. Diffuse osteoarthritis throughout most notably in CMC joint Result [facility] Sherrie Oma Tim SENIOR TECHNICAL TRAINER IMG XR PROCEDURES Final Result from Last 3 Months Insurance AETNA MEDICARE AETNA MEDICARE AETNA MEDICARE [facility] Address: [facility] [id number] [place] [address] Care Teams Cloth Printer Relationship Specialty Start Date End Date Diana Villa MD [address] [phone] PCP - General Internal Medicine 02/09/22
--- OUTSIDE RECORDS SUMMARY | 2024-06-19 11:12 | XMS_ITS | Encounter Summary ---
Author Organization [facility] Address [address] [place] [address] Phone Care Team Providers Care Corporate Sales Manager Name Role Phone Diana Villa MD Primary Care Provider Encounter Details Date Type Department Care Team (Late st Contact Info) Description 06/10/2024 Telephone [facility] [address] [facility] Medical Office Building [address] [place] [address] Henry Dill PA [address] [place] [address] Social History Tobacco Use Types [...] on file Legal Sex Male 12:52 AM SUSTAINABILITY SPECIALIST Gender Identity Male 04/09/2022 1:19 PM SUSTAINABILITY SPECIALIST Sexual Orientation Not on file documented as of this encounter Miscellaneous Notes * Telephone Encounter - Adele Resendez - 06/18/2024 6:47 AM CDT Radiology Report scanned into chart. * Telephone Encounter - Ana Kinney - 06/17/2024 11:16 AM CDT Jd Salina Cronin from [facility] [place], [place] called. She is asking if we received the Insurance auth for pt's CT Cervical Spinal? Thanks * Telephone Encounter - Lexus Huffman CMA - 06/17/2024 10:[address] C spine and last OV faxed to [phone]. * Telephone Encounter - Ana Kinney - 06/17/2024 10:00 AM CDT Jaja from [facility] [place], [place] called again asking if the order for pt's CT cervical can be sent to them as pt wishes to have CT there. Fax number is [phone]. Thanks * Telephone Encounter - Tamra Banks - 06/11/2024 9:30 AM CDT Jaja from [facility] needs a ct cervical order authorized Fax: [phone] * Telephone Encounter - Lexus Huffman CMA [...] myelopathy/surgical eval. Thank you, Henry Dill PA-C [facility] documented in this encounter Plan of Treatment Not on file documented as of this encounter Visit Diagnoses Not on filedocumented in this encounter Care Teams Corporate Sales Manager Relationship Specialty Start Date End Date Diana Villa MD [address] [place] [address] PCP - General Internal Medicine 02/09/22 documented as of this encounter
--- OUTSIDE RECORDS SUMMARY | 2024-06-19 11:12 | XMS_ITS | Clinical Summary ---
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 05/31/2022 Overview (05/31/2022): NH and stenting Essential hypertension 05/31/2022 Hx of acute myocardial infarction of inferior wa ll 05/31/2022 Primary hypercholesterolemia 05/31/2022 Pain in joint of right hip 01/02/2022 Bilateral carotid bruits 01/11/2017 S/P right coronary artery (RCA) stent placement 01/11/2017 Myalgia 02/20/2016 Encounters Date Type Department Care Team Description 06/13/2024 Orders Only [facility] Neurosurgery [address] [facility] 6th [place] [address] [place] [address] Gregorio Castro MD Age-related osteoporosis with current pathological fracture of vertebra, initial encounter (HCC) (Primary Dx) 06/10/2024 11:30 AM CDT Office Visit [facility] Neurosurgery [facility] Medical Office Building [address] [place] [address] Henry Dill PA Age-related osteoporosis with current pathological fracture of vertebra, initial encounter (HCC) (Primary Dx); Degenerative disc disease, cervical; Degenerative joint disease of cervical and lumbar spine; Bilateral hand numbness 06/10/2024 11:00 AM CDT - 06/10/2024 11:59 PM CDT Hospital Encounter [facility]iology [address] [place] [address] [address] [place] [address] Cervical pain (neck); Lumbar pain Discharge Disposition: Discharge to home or self care 06/10/2024 Telephone [facility] Neurosurgery [address] [place] [address] Medical Office Building [address] [place] [address] Henry Dill PA 06/06/2024 Orders Only [facility] Neurosurgery [address] [place] [address] Medical Office Building [address] [place] [address] Henry Dill PA Cervical pain (neck) (Primary Dx); Lumbar pain 05/23/2024 8:50 AM DENTAL ASSOCIATE - 05/23/2024 11:59 PM DENTAL ASSOCIATE Hospital [facility] [address] [place] [address] Acute pain of left shoulder Discharge Disposition: Discharge to home or self care 05/23/2024 8:30 AM DENTAL ASSOCIATE Office Visit [facility] Orthopaedic Surgery [address] [place] [address] 2nd Floor [address] [place] [address] David Moore PA Rotator cuff tendinitis, left (Primary Dx); Acute pain of left shoulder; Spinal stenosis in cervical region 05/21/2024 9:57 AM DENTAL ASSOCIATE - 05/21/2024 11:59 PM DENTAL ASSOCIATE Hospital Encounter [facility] [address] [place] [address] Discharge Disposition: Discharge to home or self care 05/21/2024 9:55 AM DENTAL ASSOCIATE - 05/21/2024 11:59 PM DENTAL ASSOCIATE Hospital Encounter Radiology [facility] [place] [address] Discharge Disposition: Discharge to home or self care 05/21/2024 9:53 AM DENTAL ASSOCIATE - 05/21/2024 11:59 PM DENTAL ASSOCIATE Hospital Encounter Radiology [facility] [address] [place] [address] Discharge Disposition: Discharge to home or self care 05/21/2024 Telephone [facility] Scheduling [address] [place] [address] Arthur Gardnercia 05/20/2024 Orders Only [facility] [address] [place] [address] [address] [place] [address] Yoel Dominique MD Acute pain of left shoulder (Primary Dx) 05/08/2024 11:45 AM DENTAL ASSOCIATE Office Visit [facility] [address] [place] [address] [address] [place] [address] Yoel Dominique MD Carpal tunnel syndrome, left (Primary Dx); Arthritis of carpometacarpal (CMC) joint of left thumb; Arthritis of left wrist; Rotator cuff tendinitis, left 05/08/2024 Telephone [facility] [address] [place] [address] [address] [place] [address] Janeth Steel MA 04/22/2024 11:15 AM DENTAL ASSOCIATE Office Visit [facility] [address] [place] [address] [address] [place] [address] Sherrie Dumont NP Left hand pain (Primary Dx); Carpal tunnel syndrome of left wrist 04/22/2024 7:54 AM DENTAL ASSOCIATE - 04/22/2024 11:59 PM DENTAL ASSOCIATE Hospital Encounter [facility] [address] [place] [address] [address] [place] [address] Discharge Disposition: Discharge to home or self [...] on file Legal Sex Male 12:52 AM DENTAL ASSOCIATE Gender Identity Male 04/09/2022 1:19 PM DENTAL ASSOCIATE Sexual Orientation Not on file Obstetrics History Last Filed Vital Signs Vital Sign Reading Time Taken Comments Blood Pressure 130/80 04/22/2024 11:06 AM DENTAL ASSOCIATE Pulse 76 04/22/2024 11:06 AM DENTAL ASSOCIATE Temperature - - Respiratory Rate - - [...] Read Routine (OP Routine) 05/23/2024 9:03 AM DENTAL ASSOCIATE Acute pain of left shoulder [place] ARTHROCENTESIS ASPIR&/INJ MAJOR JT/BURSA W/O US Routine 05/23/2024 8:30 AM DENTAL ASSOCIATE Rotator cuff tendinitis, left MSK MR OUTSIDE REFERENCE Routine 05/21/2024 9:57 AM DENTAL ASSOCIATE NEURO MR OUTSIDE REFERENCE Routine 05/21/2024 9:55 AM DENTAL ASSOCIATE XR TRANSFER OF OUTSIDE FILMS Routine 05/21/2024 9:53 AM DENTAL ASSOCIATE XR HAND LEFT 3 OR MORE VIEWS Schedule Routine, Read Routine (OP Routine) 04/22/2024 11:07 AM DENTAL ASSOCIATE Left hand pain from Last 3 Months [...] lower lumbar level facet osteoarthritis. 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 There is no [...] lower lumbar level facet osteoarthritis. 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 Electronically signed by: Madan Elizondo M.D. Narrative 05/23/2024 9:07 AM DENTAL ASSOCIATE EXAMINATION: XR SHOULDER LEFT 2 OR MORE [...] HARRISON IMG XR PROCEDURES Final Result * [place] ARTHROCENTESIS ASPIR&/INJ MAJOR JT/BURSA W/O US (05/23/2024 8:30 AM DENTAL ASSOCIATE) Narrative David Moore PA - 05/23/2024 8:30 AM DENTAL ASSOCIATE David Moore PA 05/23/2024 9:43 AM Large [...] MSK MR Outside Reference (05/21/2024 9:57 AM DENTAL ASSOCIATE) Impressions RAD_PACS[facility] - 05/21/2024 9:57 AM DENTAL ASSOCIATE These images are for Reference purposes only and have not been reviewed by [facility]iology. There will be no report generated by a [facility] Radiologist. Narrative RAD_PACS[facility] - 05/21/2024 9:57 AM DENTAL ASSOCIATE EXAMINATION: Images For Reference Purposes Only Gregorio Castro MD IMG MRI PROCEDURES Final Result Performing Organization Address [facility] Co de Phone Number [facility] * Neuro MR Outside Reference (05/21/2024 9:55 AM DENTAL ASSOCIATE) Impressions RAD[facility] - 05/21/2024 9:55 AM DENTAL ASSOCIATE These images are for Reference purposes only and have not been reviewed by [facility]. There will be no report generated by a [facility] Radiologist. Narrative RAD_PACS[facility] - 05/21/2024 9:55 AM DENTAL ASSOCIATE EXAMINATION: Images For Reference Purposes Only Gregorio Castro MD IM MRI PROCEDURES Final Result Performing Organization Address City/[facility]/ZIP Co de Phone Number [facility] * XR Outside Reference (05/21/2024 9:53 AM DENTAL ASSOCIATE) Impressions [facility] - 05/21/2024 9:53 AM DENTAL ASSOCIATE These images are for Reference purposes only and have not been reviewed by [facility] Radiology. There will be no report generated by a [facility] Radiologist. Narrative [facility] - 05/21/2024 9:53 AM DENTAL ASSOCIATE EXAMINATION: Images For Reference Purposes Only us Gregorio Castro MD IMG XR PROCEDURES Final Result [facility] * XR Hand Left 3 or More Views (04/22/2024 11:07 AM DENTAL ASSOCIATE) Anatomical Region Laterality Modality Upper Extremities, Hand Left Digital Radiography Narrative 04/24/2024 3:28 PM DENTAL ASSOCIATE X-ray of the left hand viewed and interpreted. There is no evidence of fracture, subluxation, or bony abnormality. Diffuse osteoarthritis throughout most notably in CMC joint us Sherrie Dumont NP IMG XR PROCEDURES Final Result from Last 3 Months Insurance [employer] MEDICARE A[employer] MEDICARE A[employer] MEDICARE Care Teams Consulting Practice Director Relationship Specialty Start Date End Date Diana Villa MD [address] [place], [place] [address] PCP - General Internal Medicine 02/09/22
== END 2024-06-19 10:24 | disposition home or self-care (01) ==
LOC: CHSIMG 10:26
PROVIDERS: PCP Internal Medicine; Visit Provider Physician Assistant
DX: M50.30 Other cervical disc degeneration, unspecified cervical region (principal); M48.02 Spinal stenosis, cervical region
CPT/HCPCS: 72125

== ENCOUNTER 2024-09-19 09:54 | Outpatient (RCR) | payer MEDICARE, SELFPAY ==
--- NOTE | 2024-09-19 11:20 | OTOPEVAL1 ---
Assessment and note entered by Raina Tarango OT Evaluation Information Assessment Status Evaluation Diagnosis S/P cervical spinal fusion ICD-10 Condition Codes (OT) Generalized muscle weakness M62.81 Other ICD-10 Condition Codes ( Cervical myelopathy; cervical spinal stenosis OT) Onset 09/08/2024 Reported Pain Level Pain Score Mild Pain: Astorga Watts Assessment OT Clinical Summary The patient is a 74 year old male who was referred to outpatient OT due to s/p cervical spinal fusion C4-6. PMH includes but is not limited to cervical myelopathy and cervical spinal stenosis. Past surgical hx includes L radial nerve repair from severing radial nerve. The patient previously demonstrated no pain in B UE, WNL AROM of B shoulders, elbows and wrists, WNL rehabilitation specialist and pinch strength and good fine motor coordination. The patient now demonstrates moderately impaired fine motor coordination of R hand, moderately impaired rehabilitation specialist and pinch strength, moderately impaired AROM of R elbow and wrist, and sensation issues that affect comfort and ability to maintain objects in hand during ADLs. The patient requires skilled OT to address deficits and increase hand use for ADLs , to maintain cervical precautions at this time and focus on distal arms to regain independence. Plan of Care Interventions Therapeutic Exercise,Manual Therapy,Neuro Re- education,Therapeutic Activities,Hot Pack/Cold Pack,Sensory Integrative Techniques,Self-Care/Home Management OT Services Indicated Yes Treatment Frequency and 2x/week for 10 visits. Duration These treatments will address the objective and functional deficits as defined above. The patient will be advanced safely and appropriately in order for the patient to progress towards his/her prior level of function. Additional exercises will be introduced and as well as a comprehensive home exercise program upon discharge, if needed, ?to ensure carryover of functional gains achieved in the clinic. This treatment plan has been reviewed and agreement upon by the patient.
--- NOTE | 2024-09-19 11:20 | OPREHPOC ---
Outpatient Therapy Plan of Care This is a Multidisciplinary Plan of Care that may contain components documented by all disciplines (PT, OT, and ST.) OT Problem 1 OT Problem #1 Knowledge Deficit OT Goal 1 Goal / Goal Update The patient will demonstrate 100% knowledge and return demonstration of UE HEP to maintain and achieve increased strength. Target Visit 10 OT Problem 2 OT Problem #2 Impaired Strength OT Goal 1 Goal / Goal Update The patient will demonstrate increased technical sales manager and pinch strength of B hands demonstrating >45 lbs of technical sales manager and >15 lbs lateral pinch in order to avoid dropping items during self care tasks. Target Visit 10 OT Goal 2 Goal / Goal Update The patient will demonstrate increased fine motor coordination of R hand performing 9-hole peg test in <30 seconds in order to increase dexterity of use of dominant hand for self feeding. Target Visit 10 OT Goal 1 Goal / Goal Update The patient will demonstrate decreased sensation issues with reports of mild to no tingling of B hands in order to avoid dropping toothbrush. Target Visit 10 OT Goal 2 Goal / Goal Update The patient will demonstrate increased AROM of R elbow flexion performing 20 degrees with forearm in neutral and achieve 90 degrees R forearm supination to avoid muscle atrophy of biceps for ability to lift drink to mouth. Target Visit 10
--- NOTE | 2024-10-31 12:54 | OTOPDC ---
Assessment and note entered by Raina Tarango, OT Evaluation Information Assessment Status Discharge Subjective Information The patient reports that he notices improvement in his hand and elbow function following occupational therapy. He demonstrates good engagement in OT services and with HEP to improve overall function. He continues to demonstrate compensatory movements of R UE using multiple muscle groups to perform elbow flexion or supination. He demonstrates weakness of bicep muscle and supinator/extensor muscles of forearm. His fine motor coordination has improved significantly, due to patient's limited shoulder ROM and strength and difficulty engaging elbow flexion/extension during functional tasks, he continues to demonstrate difficulty with grooming, bathing and IADLs. Reported Pain Level Pain Score 0: Self Report Assessment OT Clinical Summary The patient demonstrates significant progress toward shipping processor/pinch strength, fine motor coordination, sensation, and wrist ROM leading to increased use of hands during cooking and grooming activities. He continues to demonstrate recruiting other muscle groups when attempting to flex elbow, supinate forward, or lift at shoulder due to weakness and continued deficits from medical condition. The patient demonstrates fluctuating levels of elbow flexion with the elbow propped on tabletop and patient requiring forearm in neutral, relying on brachioradialis muscle, to engage elbow flexion. Therapist educated patient on the importance of proximal strength and stability affecting distal mobility of UE. Therapist educated that since he was cleared for PT for shoulder, he could continue to make progress with elbow and hand strength and coordination needed for everyday tasks. The patient demonstrates good understanding at this time and understands HEP. Patient is discharged from OT, to begin PT for shoulder strengthening per MD. Plan of Care OT Services Indicated No
--- NOTE | 2024-10-31 12:54 | OPREHPOC ---
Outpatient Therapy Plan of Care This is a Multidisciplinary Plan of Care that may contain components documented by all disciplines (PT, OT, and ST.) OT Problem 1 OT Problem #1 Knowledge Deficit OT Goal 1 Goal / Goal Update The patient will demonstrate 100% knowledge and return demonstration of UE HEP to maintain and achieve increased strength. GOAL MET; DISCONTINUED 10/31/2024 Target Visit 10 Progress Met OT Problem 2 OT Problem #2 Impaired Strength OT Goal 1 Goal / Goal Update The patient will demonstrate increased mine utility operator and pinch strength of B hands demonstrating >45 lbs of mine utility operator and >15 lbs lateral pinch in order to avoid dropping items during self care tasks. GOAL MET; DISCONTINUED 10/31/2024 Perch Machine Inspector: R - 47 lbs, L - 48 lbs Pinch: R - 11 lbs, L - 10 lbs Target Visit 10 Progress Met OT Goal 2 Goal / Goal Update The patient will demonstrate increased fine motor coordination of R hand performing 9-hole peg test in <30 seconds in order to increase dexterity of use of dominant hand for self feeding. GOAL MET; DISCONTINUED 10/31/2024 29 seconds; shoulder compensation causing decreased speed, patient's hand and wrist demonstrate good coordination, as patient reached to back rows, he demonstrated decreased speed as he was unable to lift at shoulder without utilizing upper trap muscles to lift Target Visit 10 Progress Met OT Goal 1 Goal / Goal Update The patient will demonstrate decreased sensation issues with reports of mild to no tingling of B hands in order to avoid dropping toothbrush. GOAL MET; DISCONTINUED 10/31/2024 L: Severe with carpal tunnel, patient reports he is aware he needs carpal tunnel release and is seeing an orthopedic doctor for this issue once his R UE is working better R: None Target Visit 10 Progress Met OT Goal 2 Goal / Goal Update The patient will demonstrate increased AROM of R elbow flexion performing 20 degrees with forearm in neutral and achieve 90 degrees R forearm supination to avoid muscle atrophy of biceps for ability to lift drink to mouth. GOAL PARTIALLY MET; DISCONTINUED 10/31/2024 Elbow flexion: 5-90 degrees with forearm in neutral and elbow supported on tabletop, unable to perform elbow flexion at all when elbow is at side Supination: 98 with elbow supported and compensation using shoulder rotators Target Visit 10
== END 2024-10-31 21:49 | disposition home or self-care (01) ==
LOC: CHSOT 09:54
PROVIDERS: Visit Provider Neurological Surgery
DX: G95.9 Disease of spinal cord, unspecified (principal); M48.02 Spinal stenosis, cervical region; Z98.1 Arthrodesis status
CPT/HCPCS: 97110; 97166; 97530

== ENCOUNTER 2024-11-05 13:48 | Outpatient (RCR) | payer MEDICARE, SELFPAY ==
--- NOTE | 2024-11-05 15:05 | OPREHPOC ---
Outpatient Therapy Plan of Care This is a Multidisciplinary Plan of Care that may contain components documented by all disciplines (PT, OT, and ST.) PT Problem 1 PT Problem #1 Knowledge Deficit PT Goal 1 Goal / Goal Update independent and compliant with HEP Target Visit 6 PT Problem 2 PT Problem #2 Impaired Range of Motion PT Goal 1 Goal / Goal Update R shoulder active flex to 125 degrees or better R shoulder active abd to 90 degrees or bettter R elbow active flex to 90 degrees or better with hand in supination Target Visit 12 PT Problem 3 PT Problem #3 Impaired Strength PT Goal 1 Goal / Goal Update 3-/5 R shoulder strength overall 3-/5 R elbow flex 60lbs or better bilateral manager corporate communications strength PT Goal 2 Target Visit 12 PT Problem 4 PT Problem #4 Impaired Functional Mobility PT Goal 1 Goal / Goal Update patient to handle all dressing and hygiene activities independent quick dash to display 40% or less functional deficits Target Visit 12
--- NOTE | 2024-11-05 15:06 | PTOPEVAL1 ---
Assessment and note entered by JT File, PT Evaluation Information Assessment Status Evaluation ICD-10 Condition Codes (PT) Radiculopathy, cervical M54.13 Subjective Information patient is having issues using the R arm. he reports he cannot lift the arm away from his side, and is unable to bend his R elbow without resting it on an object. he reports he did not have these issues prior to his neck fusion. he reports the L shoulder and L arm were the biggest issue before surgery, but now the R is the worst. he reports it has been 12-13 weeks since surgery. he reports he cant bend the R elbow or lift the arm away from his side now. he has to have help getting dressed and managing shower/hygiene. he reports he had OT after surgery initially, and this helped with improving his R hand function, but the R shoulder and arm are near useless. Reported Pain Level Pain Score 0: Self Report Assessment PT Clinical Summary mr. gallegos presents to skilled PT for evaluation and treatment of R UE weakness following cervical fusion. he presents today with signs and symptoms of nerve related impingement/ deficits following his cervical fusion surgery. he is most limited in the C5 and C6 myotomes. 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 continued skilled PT is indicated to improve his objective/functional deficits and return to his prior level functional activity performance/ quality of life. Plan of Care Interventions Manual Therapy,Neuro Re-education,Patient/ Caregiver Education,Therapeutic Activities, Therapeutic Exercise PT Services Indicated Yes Treatment Frequency and 2x weekly for 12 visits Duration These treatments will address the objective and functional deficits as defined above. The patient will be advanced safely and appropriately in order for the patient to progress towards his/her prior level of function. Additional exercises will be introduced and as well as a comprehensive home exercise program upon discharge, if needed, ?to ensure carryover of functional gains achieved in the clinic. This treatment plan has been reviewed and agreement upon by the patient.
--- NOTE | 2024-12-11 12:01 | OPREHPOC ---
Outpatient Therapy Plan of Care This is a Multidisciplinary Plan of Care that may contain components documented by all disciplines (PT, OT, and ST.) PT Problem 1 PT Problem #1 Knowledge Deficit PT Goal 1 Goal / Goal Update independent and compliant with HEP Target Visit 6 Progress Met PT Problem 2 PT Problem #2 Impaired Range of Motion PT Goal 1 Goal / Goal Update R shoulder active flex to 125 degrees or better R shoulder active abd to 90 degrees or bettter R elbow active flex to 90 degrees or better with hand in supination Target Visit 12 Progress Not Met PT Problem 3 PT Problem #3 Impaired Strength PT Goal 1 Goal / Goal Update 3-/5 R shoulder strength overall 3-/5 R elbow flex 60lbs or better bilateral culvert installer strength Progress Not Met PT Goal 2 Target Visit 12 PT Problem 4 PT Problem #4 Impaired Functional Mobility PT Goal 1 Goal / Goal Update patient to handle all dressing and hygiene activities independent quick dash to display 40% or less functional deficits Target Visit 12 Progress Not Met
--- NOTE | 2024-12-11 12:01 | PTOPPROG ---
Assessment and note entered by Yelena Connolly, PT Evaluation Information Assessment Status Progress ICD-10 Condition Codes (PT) Radiculopathy, cervical M54.13 Other ICD-10 Condition Codes ( G95.9, M48.02, Z98.1 PT) Subjective Information Marvin reports feeling like his range of motion has improved since starting therapy. 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 He reports his weakness interferes with his ability to perform normal hobbies, and he still has difficulty with getting dressed and showering and requires occasional assistance from his . He has continued to perform his HEP. Assessment PT Clinical Summary Mr. Victor has attended 10 skilled PT visits for bilateral arm weakness due to cervical myelopathy with history of cervical fusion. While he feels like his range of motion has improved since starting therapy, he demonstrates only minor improvement in active shoulder flexion. His bilateral arm strength is relatively unchanged at this time. He also continues to require assistance with dressing and bathing and has difficulty performing his typical hobbies due to weakness and pain. He will benefit from continued skilled PT to improve ROM, strength and functional use of the R UE to be able to independently perform ADLs and other functional tasks. Plan of Care Interventions Manual Therapy,Neuro Re-education,Patient/ Caregiver Education,Therapeutic Activities, Therapeutic Exercise PT Services Indicated Yes Treatment Frequency and Continue per POC Duration These treatments will address the objective and functional deficits as defined above. The patient will be advanced safely and appropriately in order for the patient to progress towards his/her prior level of function. Additional exercises will be introduced and as well as a comprehensive home exercise program upon discharge, if needed, ?to ensure carryover of functional gains achieved in the clinic. This treatment plan has been reviewed and agreement upon by the patient.
--- NOTE | 2024-12-16 12:05 | OPREHPOC ---
Outpatient Therapy Plan of Care This is a Multidisciplinary Plan of Care that may contain components documented by all disciplines (PT, OT, and ST.) PT Problem 1 PT Problem #1 Knowledge Deficit PT Goal 1 Goal / Goal Update independent and compliant with HEP Target Visit 6 Progress Met PT Problem 2 PT Problem #2 Impaired Range of Motion PT Goal 1 Goal / Goal Update R shoulder active flex to 125 degrees or better R shoulder active abd to 90 degrees or bettter R elbow active flex to 90 degrees or better with hand in supination Target Visit 12 Progress Not Met PT Problem 3 PT Problem #3 Impaired Strength PT Goal 1 Goal / Goal Update 3-/5 R shoulder strength overall 3-/5 R elbow flex 60lbs or better bilateral riveter hand strength Progress Not Met PT Goal 2 Target Visit 12 PT Problem 4 PT Problem #4 Impaired Functional Mobility PT Goal 1 Goal / Goal Update patient to handle all dressing and hygiene activities independent quick dash to display 40% or less functional deficits Target Visit 12 Progress Not Met
--- NOTE | 2024-12-18 11:56 | OPREHPOC ---
Outpatient Therapy Plan of Care This is a Multidisciplinary Plan of Care that may contain components documented by all disciplines (PT, OT, and ST.) PT Problem 1 PT Problem #1 Knowledge Deficit PT Goal 1 Goal / Goal Update independent and compliant with HEP Target Visit 6 Progress Met PT Problem 2 PT Problem #2 Impaired Range of Motion PT Goal 1 Goal / Goal Update R shoulder active flex to 125 degrees or better R shoulder active abd to 90 degrees or bettter R elbow active flex to 90 degrees or better with hand in supination Target Visit 12 Progress Not Met PT Problem 3 PT Problem #3 Impaired Strength PT Goal 1 Goal / Goal Update 3-/5 R shoulder strength overall -met 3-/5 R elbow flex -not met 60lbs or better bilateral legger press operator strength -not met Progress Partially Met PT Goal 2 Target Visit 12 PT Problem 4 PT Problem #4 Impaired Functional Mobility PT Goal 1 Goal / Goal Update patient to handle all dressing and hygiene activities independent -not met quick dash to display 40% or less functional deficits -not met Target Visit 12 Progress Not Met
--- NOTE | 2024-12-18 11:56 | PTOPPROG ---
Assessment and note entered by Yelena Connolly, PT Evaluation Information Assessment Status Progress ICD-10 Condition Codes (PT) Radiculopathy, cervical M54.13 Other ICD-10 Condition Codes ( G95.9, M48.02, Z98.1 PT) Subjective Information Marvin reports his shoulder pain/discomfort is around 4/10 today however it was up to a 6/10 yesterday and he had to take a couple pain pills. He continues to report tingling into both arms. He reports he still needs assistance for dressing. He feels like therapy has been helping but he is also aware that due to the compression on his spinal cord that he may not ever get back to normal. His goal is still to improve dexterity and functional use of his arms. Assessment PT Clinical Summary Mr. Victor has attended 12 skilled PT visits for bilat arm weaknes (R>L) due to cervical myelopathy. While he demonstrates only slight progress toward therapeutic goals, He has made positive improvements in his shoulder AROM and strength and is progressing toward goals. He demonstrates at least 3-/5 R shoulder strength and also demonstrates improvements in active flexion and abduction ROM. He is still functionally limited in his use of bilat arms elliot. the R due to his deficits in ROM and strength and continues to require assistance with dressing, bathing and other functional ADLs at home that require active elbow flexion or shoulder flexion. He will benefit from continued skilled PT intervention to make further progress toward goals to improve functional use of the arms and independence. Plan of Care Interventions Manual Therapy,Neuro Re-education,Patient/ Caregiver Education,Therapeutic Activities, Therapeutic Exercise PT Services Indicated Yes Treatment Frequency and 1x/week for 6 additional visits Duration These treatments will address the objective and functional deficits as defined above. The patient will be advanced safely and appropriately in order for the patient to progress towards his/her prior level of function. Additional exercises will be introduced and as well as a comprehensive home exercise program upon discharge, if needed, ?to ensure carryover of functional gains achieved in the clinic. This treatment plan has been reviewed and agreement upon by the patient.
--- NOTE | 2025-01-27 09:53 | PCPTNOTE ---
Patient called & cancelled scheduled appointment this date due to having teeth pulled yesterday and he is still bleeding. -Carmina Carias, PT
--- NOTE | 2025-02-03 12:09 | OPREHPOC ---
Outpatient Therapy Plan of Care This is a Multidisciplinary Plan of Care that may contain components documented by all disciplines (PT, OT, and ST.) PT Problem 1 PT Problem #1 Knowledge Deficit PT Goal 1 Goal / Goal Update independent and compliant with HEP Target Visit 6 Progress Met PT Problem 2 PT Problem #2 Impaired Range of Motion PT Goal 1 Goal / Goal Update R shoulder active flex to 125 degrees or better R shoulder active abd to 90 degrees or bettter R elbow active flex to 90 degrees or better with hand in supination Target Visit 12 Progress Not Met PT Problem 3 PT Problem #3 Impaired Strength PT Goal 1 Goal / Goal Update 3-/5 R shoulder strength overall -not met 3-/5 R elbow flex -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
--- NOTE | 2025-02-03 12:10 | PTOPDC ---
Assessment and note entered by Carmina Carias, PT Evaluation Information Assessment Status Progress ICD-10 Condition Codes (PT) Radiculopathy, cervical M54.13 Other ICD-10 Condition Codes ( G95.9, M48.02, Z98.1 PT) Subjective Information Marvin reports he has been using an arm bike at home and performing light strengthening with a 1# weight. He continues to have difficulty with daily activities and is unable to hold items in his right hand. He has been wearing a wrist brace on the left side which is reducing the amount of tingling in his left UE. He will have a nerve conduction test around the 15 of February and then he will follow up with his surgeon. He still has pain in his neck that makes sleeping difficult . Reported Pain Level Pain Score Moderate Pain: Astorga Watts Assessment PT Clinical Summary Mr. Victor has attended 17 skilled PT visits for bilat arm weaknes (R>L) due to cervical myelopathy. He has began to plateau in regards to progress with AROM and strength. He demonstrates weakness in the right > left bicep and shoulder. He has not had significant improvements in right shoulder AROM and remains significantly reduced in AROM against gravity. He is still functionally limited in his use of bilateral UE especially the R due to his deficits in ROM and strength and continues to require assistance with dressing, bathing and other functional ADLs at home that require active elbow flexion or shoulder flexion. He is performing strengthening exercises at home and will be discharged to a home exercise program. Plan of Care PT Services Indicated No
== END 2025-02-03 23:59 | disposition home or self-care (01) ==
LOC: CHSPT 13:48
PROVIDERS: Visit Provider Neurological Surgery
DX: G95.9 Disease of spinal cord, unspecified (principal); M48.02 Spinal stenosis, cervical region; Z98.1 Arthrodesis status; M54.12 Radiculopathy, cervical region
CPT/HCPCS: 97110; 97112; 97150; 97161; 97530; 97750

== ENCOUNTER 2024-11-11 08:04 | Outpatient (CLI) | payer MEDICARE, SELFPAY ==
--- NOTE | ~2024-11-11 | XR_ITS ---
XR knee LT min 4V 11/11/2024 08:23 Indication: Left knee pain Procedure: 4 views left knee Comparison: Findings: There is severe tricompartment osteoarthritis, most advanced in the medial compartment. No acute fracture, subluxation or dislocation. No significant joint effusion. Impression: 1: Severe tricompartment osteoarthritis of the left knee. Reviewed, dictated and finalized at location A. Impression: 1: Severe tricompartment osteoarthritis of the left knee.
--- OUTSIDE RECORDS SUMMARY | 2024-11-11 08:12 | XMS_ITS | Clinical Summary ---
Author Organization [facility] Address [address] [place] [address] Care Team Providers Care Deliverer Food Name Role Phone Diana Villa MD Primary Care Provider [phone] Madan Crocker MD Unavailable [phone] Allergies No known active allergies Medications [...] Myalgia 02/20/2016 Coronary artery disease invo [place]ving [place] coronary artery of [place] heart without angina pectoris Overview (02/17/2016): [facility] [...] 1:08 PM CDT Height 167.6 cm (5' 6) 01/11/2017 1:08 PM CDT Body Mass Index 33.89 01/11/2017 1:08 PM CDT Plan of Treatment Health Maintenance Due Date Last Done Comments ASCVD LDL 1950 Colorectal Cancer Screening Colonoscopy (10 Years) 1950 Hepatitis C 1968 DTaP, Tdap and Td Vaccines ( 1 - Tdap) 1969 Pneumococcal Vaccine: 50+ Ye ars (1 of 2 - PCV) 1969 Zoster Vaccines (1 of 2) 2000 RSV Immunization or 60+ Years (1 - Risk 60-74 years 1-dose series) 2010 Annual Medicare Wellness Visit 07/31/2015 COVID-19 Vaccine (1 - 2023-2 5 season) 2023 Meningococcal B Vaccine Aged Out No l onger eligible based on patient's age to complete this topic Meningococcal Vaccine Aged Out No berenice anselmo eligible based on patient's age to complete this topic RSV Immunizations Under 20 Months Aged Out No longer eligible based on patient's age to complete this topic Insurance [employer] MEDICARE Care Teams Deliverer Food Relationship Specialty Start Date End Date Diana Villa MD [address] [place] [id number] PCP - General INTERNAL MEDICINE 02/18/16 Madan Crocker MD [address] [place] [id number] CARDIOVASCULAR DISEASE 02/18/16
== END 2024-11-11 08:05 | disposition home or self-care (01) ==
LOC: CHSIMG 08:06
PROVIDERS: PCP Internal Medicine; Visit Provider Orthopaedic Surgery
DX: M25.562 Pain in left knee (principal); M17.12 Unilateral primary osteoarthritis, left knee
CPT/HCPCS: 73564

== ENCOUNTER 2024-11-20 15:38 | Outpatient (CLI) | payer MEDICARE, SELFPAY ==
--- NOTE | ~2024-11-20 | MR_ITS ---
EXAMINATION: MR cervical spine wo con DATE: 11/20/2024 21:01 INDICATION: Cervical spinal stenosis with myelopathy. TECHNIQUE: Magnetic resonance imaging (MRI) of the cervical spine was performed without intravenous contrast. Sequences included sagittal T2-weighted FSE, sagittal T2-weighted FS FSE, sagittal T1-weighted FSE, axial MERGE and axial T2- weighted FSE. COMPARISON: CT dated 06/19/2024 FINDINGS: Bone alignment is normal. There is metallic magnetic field artifact such with anterior plate and screw fixation for a C4-C6 anterior spinal fusion. Unfused vertebral body heights are normal. Moderate to severe disc height loss with fibrofatty degenerative endplate changes at T1-T2 and T2-T3. Disc height loss at C6-C7 and C7-T1. Severe osteoarthritis at the atlantoaxial articulation. Cord signal intensity is normal. Cervical soft tissues are unremarkable. The following disc levels are specifically discussed: C2-C3: The disc does not extend beyond the endplate margin. There is mild bilateral uncovertebral joint osteoarthritis. There is moderate right and severe left facet joint osteoarthritis. There is mild to moderate left neural foraminal stenosis. There is no central canal stenosis. C3-C4: Disc is mildly bulging. There is mild left and moderate right uncovertebral joint osteoarthritis. There is moderate left and severe right facet joint osteoarthritis. There is mild left and moderate right neural foraminal stenosis. There is minimal central canal stenosis. C4-C5: Anterior spinal fusion. There is severe bilateral facet joint osteoarthritis. There is moderate bilateral neural foraminal stenosis. There is no central canal stenosis. C5-C6: Anterior spinal fusion. Prominent posterior endplate osteophytes which flatten the ventral surface of the cord. There is moderate bilateral facet joint osteoarthritis. There is moderate right and moderate to severe left neural foraminal stenosis. There is mild central canal stenosis. C6-C7: Disc is bulging, eccentric to the right, which indents the right ventral surface of the cord. There is mild left and moderate right uncovertebral joint osteoarthritis. There is severe bilateral facet joint osteoarthritis. There is mild left and moderate right neural foraminal stenosis. There is mild central canal stenosis. C7-T1: Disc is bulging. There is mild bilateral uncovertebral joint osteoarthritis. There is severe right and moderate to severe left facet joint osteoarthritis. There is mild left and mild to moderate right neural foraminal stenosis. There is mild central canal stenosis. T1-T2: Disk is bulging with annular fissure. There is moderate to severe bilateral facet osteoarthritis. There is moderate bilateral neural foraminal stenosis.. There is epidural lipomatosis which contributes to moderate central canal stenosis with effacement of the CSF signal surrounding the cord cord which appears narrowed in cross-sectional area. IMPRESSION: 1. Interval instrumented C4-C6 anterior spinal fusion. 2. Stable appearance of mild spondylosis in the remainder of the cervical spine and moderate to severe spondylosis in the remainder of the visualized upper thoracic spine which is most notable for moderate central canal stenosis at T1- T2 and up to moderate to severe neural foraminal stenosis at a few levels in the cervical spine. Reviewed, dictated and finalized at location A. IMPRESSION: 1. Interval instrumented C4-C6 anterior spinal fusion. 2. Stable appearance of mild spondylosis in the remainder of the cervical spine and moderate to severe spondylosis in the remainder of the visualized upper th oracic spine which is most notable for moderate central canal stenosis at T1-T2 and up to moderate to severe neural foraminal stenosis at a few levels in the cervical spine.
--- OUTSIDE RECORDS SUMMARY | 2024-11-20 15:42 | XMS_ITS | Clinical Summary ---
Author Organization [facility] [address] [facility] Address [address] [place] [address] Care Team Providers Care Advertising Traffic Manager Name Role Phone Diana Villa MD Primary Care Provider [phone] Allergies No known active allergies Medications Breo Ellipta 100-25 mcg/dose diskus inhalerIndicatio ns:Maintenance Therapy for Asthma Inhale 1 puff every morning 03/03/20 22 Active HYDROcodone-acet aminophen (NORCO) 10-325 mg per tablet Take 1 tablet by mouth every 4 (four) hours as needed for pain for pain 03/09/20 22 Active montelukast (SINGULAIR) 10 mg tabletIndication s:Maintenance Therapy for Asthma Take 1 tablet (10 mg total) by mouth nightly 02/17/20 22 Active zolpidem (AMBIEN) 10 mg tabletIndication s:Sleep-Onset Insomnia Take 1 tablet (10 mg total) by mouth nightly 04/15/19 23 Active atorvastatin (LIPITOR) 20 mg tabletIndication s:hyperlipidemia Take 1 tablet (20 mg total) by mouth nightly Active PARoxetine (PAXIL) 20 mg tabletIndication s:Generalized Anxiety Disorder Take 1 tablet (20 mg total) by mouth every morning Active aspirin 81 mg enteric coated tabletIndication s:Myocardial Reinfarction Prevention Take 1 tablet (81 mg total) by mouth nightly Active coenzyme Q10 200 mg capsule Take 1 capsule (200 mg total) by mouth every morning Active multivitamin tablet Take 1 tablet by mouth every morning Active nitroglycerin (NITROSTAT) 0.4 mg SL tablet DISSOLVE 1 T PO Q 5 MINUTES FOR 3 DOSES PRF CHEST PAIN 01/07/20 16 Active fluticasone furoate-vilanter oL (BREO ELLIPTA) 100-25 mcg/dose diskus inhalerIndicatio ns:Maintenance Therapy for Asthma Inhale 1 puff every morning Active metoprolol XL (TOPROL-XL) 100 mg 24 hr tablet Take 1 tablet (100 mg total) by mouth nightly 06/23/19 25 Active indapamide (LOZOL) 2.5 mg tablet Take 1 tablet (2.5 mg total) by mouth every morning 07/11/19 25 Active amLODIPine (NORVASC) 2.5 mg tablet Take 1 tablet (2.5 mg total) by mouth daily 07/11/19 25 Active fluticasone propionate (FLONASE) 50 mcg/actuation nasal spray USE TWO SPRAYS IN EACH NOSTRIL DAILY FOR SEVEN DAYS THEN TWO SPRAYS IN EACH NOSTRIL NIGHTLY 07/24/19 25 Active losartan-hydroch lorothiazide (HYZAAR) 100-25 mg per tablet Take 1 tablet by mouth daily 08/20/19 25 Active oxyCODONE (ROXICODONE) 5 mg immediate release tabletIndication s:Pain Take 1 tablet (5 mg total) by mouth every 4 (four) hours as needed for pain 42 tablet 09/10/19 25 Active riluzole (RILUTEK) 50 mg tabletIndication s:amyotrophic lateral sclerosis Take 1 tablet (50 mg total) by mouth every 12 (twelve) hours 60 tablet 09/10/19 25 026 Active acetaminophen 500 mg capsule Take 2 capsules (1,000 mg total) by mouth every 6 (six) hours 09/10/19 25 Active bisacodyL (DULCOLAX) 10 mg suppositoryIndic ations:constipat ion Insert 1 suppository (10 mg total) into the rectum daily as needed for constipation 09/10/19 25 Active cyclobenzaprine (FLEXERIL) 5 mg tablet Take 1 tablet (5 mg total) by mouth every 8 (eight) hours as needed for muscle spasms Please space out 1-2 hours from 30 tablet 09/10/19 25 Active polyethylene glycol (MIRALAX) 17 gram packetIndication s:constipation Take 1 packet (17 g total) by mouth daily 09/11/19 25 Active senna-docusate (PERICOLACE) 8.6-50 mgIndications:co nstipation Take 2 tablets by mouth 2 (two) times a day 120 tablet 09/10/19 25 Active methylPREDNISolo ne (MEDROL DOSEPACK) 4 mg Dosepack Take as directed on package 1 packet 10/23/19 25 025 Active Problems Problem Noted Date Diagnosed Date Post-operative pain 09/09/2024 Assessment & Plan (09/09/2024 10:50 AM CDT): Incisional pain well controlled on current regimen of Oxycodone, APAP and muscle relaxer Anemia 09/09/2024 Assessment & Plan (09/09/2024 11:00 AM CDT): Hgb stable 11.8 (11.6). Minimal blood loss. -CBC monitored Cervical spinal stenosis 08/15/2024 Cervical myelopathy 08/15/2024 Assessment & Plan (09/09/2024 10:51 AM CDT): --S/p C4-6 ACDFon 09/08, closed with Prieno glue, drains x 1 (keep at dc) --Post-operative imaging obtained 09/09 --Therapy recommends dispo to home --Patient to follow-up with Dr. Castro outpatient --Riluzoile x6 weeks post op --denies dysphagia. Discussed drains signs to monitor. Verbalizes understanding and agreeable to dc with drain. Drain removal appt requested. Coronary artery disease invo lving agdaagux coronary artery of agdaagux heart without angina pectoris 05/31/2022 Overview (05/31/2022): [place] and stenting HTN (hypertension) 05/31/2022 Assessment & Plan (09/09/2024 10:51 AM CDT): BP controlled on home regimen Hx of acute myocardial infarction of inferior wa ll 05/31/2022 Primary hypercholesterolemia 05/31/2022 Pain in joint of right hip 01/02/2022 Bilateral carotid bruits 01/11/2017 S/P right coronary artery (RCA) stent placement 01/11/2017 Myalgia 02/20/2016 Encounters Date Type Department Care Team Description 10/29/2024 Orders Only [facility] Medicine Neurosurgery [address] [place] [address] 4 [address] [place] [address] Gregorio Castro MD S/P spinal fusion; Cervical myelopathy (HCC); Cervical spinal stenosis; Cervical radiculopathy; Degenerative disc disease, cervical; Bilateral hand numbness; Degenerative joint disease of cervical and lumbar spine 10/22/2024 10:15 AM CDT Office Visit [facility] Medicine Neurosurgery [address] [place] [address] 4 [address] [place] [address] Gregorio Castro MD Cervical myelopathy (HCC); Cervical spinal stenosis; S/P cervical spinal fusion; Cervical radiculopathy 10/22/2024 8:54 AM CDT - 10/22/2024 11:59 PM CDT Hospital Encounter [id number] [address] [place] [address] [address] [place] [address] S/P cervical spinal fusion Discharge Disposition: Discharge to home or self care 10/22/2024 Telephone [facility] Medicine Neurosurgery [address] [place] [address] 4 [address] [place] [address] Gregorio Castro MD 09/29/2024 Orders Only [facility] Medicine Neurosurgery [address] [place] [address] 4 [address] [place] [address] Gregorio Castro MD S/P cervical spinal fusion (Primary Dx) 09/15/2024 11:00 AM CDT Clinical Support [facility] Medicine Neurosurgery [address] [place] [address] 4 [address] [place] [address] S/P cervical spinal fusion (Primary Dx); Cervical myelopathy (HCC); Cervical spinal stenosis 09/15/2024 Telephone [facility] Medicine Neurosurgery [address] [place] [address] 4 [address] [place] [address] Gregorio Castro MD 09/12/2024 Telephone [facility] Medicine Neurosurgery [address] [facility] [address] [place] [phone] Gregorio Castro MD 09/08/2024 7:30 AM CDT - 09/08/2024 12:25 PM CDT Surgery [facility] Operating Room [address] [place] [address] Gregorio Castro MD FUSION CERVICAL ANTERIOR DISCECTOMY WITH INSTRUMENTATION C4-6 anterior ceravical discectomy and fusion no titanium cage only structured allograft 09/08/2024 7:28 AM CDT Anesthesia Event [facility] Operating Room [address] [place] [address] Arnoldo Rodrigues MD Thomas, Karen D., FOREST FIRE FIGHTER 09/08/2024 5:27 AM CDT - 09/09/2024 1:14 PM CDT Hospital Encounter [address] [address] Gregorio Castro MD Discharge Disposition: Discharge to home or self care 08/27/2024 8:00 AM CDT Pre-Admission Testing [facility] for Preoperative Assessment and Planning [facility] ([facility]) [address] [place] [phone] Preoperative testing (Primary Dx); Cervical spinal stenosis; Cervical myelopathy (HCC); Vitamin D deficiency; Elevated clotting time 08/22/2024 Orders Only [facility] Medicine Neuro[facility] [address] [place] [address] Gregorio Castro MD 08/20/2024 Telephone [facility] Neurosurgery [address] [place] [address] 6th [place] [address] [place] [phone] Gregorio Castro MD from Last 3 Months Surgical History Surgery Date Site/Laterality Comments KNEE SURGERY 04/02/2015 - 04/01/2016 Left SHOULDER SURGERY CARDIAC STENT PLACEMENT 04/02/2016 - 04/01/2017 RCA ARM SURGERY MICRODISCECTOMY LUMBAR 04/02/1986 - 04/01/1987 TOTAL KNEE ARTHROPLASTY 04/02/2010 - 04/01/2011 Right TOTAL HIP ARTHROPLASTY Right CATARACT EXTRACTION Bilateral Medical History Medical History Date Comments Anxiety Arthritis Hypercholesteremia Hypertension Myocardial infarction (HCC) CAD (coronary artery disease) PONV (postoperative nausea and vomiting) Depression Family History Medical History Relation Name Comments Cancer Father Mental illness Mother Arthritis Sister Relation Name Status Comments Father Mother Sister Social History Tobacco Use Types Packs/Day Years Used Date Smoking Tobacco: Former Cigarettes 1 26 S tarted: 1969 Smokeless Tobacco: Former Chew Tobacco Cessation:Counseling Given: Not Answered AUDIT-C Answer Date Recorded Q1: How often do you have a drink containing alcohol? 4 or more times a week 09/08/2024 Q2: How many drinks containi ng alcohol do you have on a typical day when you are drinking? 1 or 2 Q3: How often do you have si x or more drinks on one occasion? Less than monthly 09/08/2024 Personal Safety Answer Date Recorded Have you ever been in or are you currently in a harmful physical or emotional relationship or is someone making you feel afraid or unsafe? 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 Gender Identity Male 04/09/2022 1:19 PM HORSE BREEDER Sexual Orientation Not on file Obstetrics History Last Filed Vital Signs Vital Sign Reading Time Taken Comments Blood Pressure 115/57 09/09/2024 12:30 PM CDT Pulse 92 09/09/2024 12:30 PM CDT Temperature 36.9 C (98.4 F) 09/09/2024 8:37 AM CDT Respiratory Rate 16 09/09/2024 12:30 PM CDT Oxygen Saturation 96% 09/09/2024 12:30 PM CDT Inhaled Oxygen Concentration - - Weight 109 kg (240 lb 4.8 oz) 09/09/2024 1:09 AM CDT Height 167.6 cm (5' 6) 09/09/2024 1:09 AM CDT Body Mass Index 38.79 09/09/2024 1:09 AM CDT Plan of Treatment Health Maintenance Due Date Last Done Comments Colon Cancer Screening-Colonoscopy 1950 Depression Screening 1950 Hepatitis C Screening 1950 DTaP/Tdap/Td Vaccine (1 - Tdap) 1961 Hepatitis B Screening 1968 Pneumococcal vaccine 65+ (1 of 1 - PCV) 2000 Zoster Vaccine (1 of 2) 2000 Abdominal Aortic Aneurysm (AAA) Screen 07/31/2015 Well Visit 65+ 07/31/2015 Influenza Vaccine (#1) 2024 Fall Risk Assessment 09/09/2025 09/09/2024 Medical Devices Implanted Type Area Exchange Engineer Device Identifier Shelf Expiration Date Model / Serial / Lot Stent Stent Heart Description:No Card Musculoskeletal Transplant Graft Bone Spacer Cortical Cancellous Cerv Frzn 7x12.5x15mm [id number] - [id number] - [id number] Implanted:Qty: 1 on 09/08/2024 by Gregorio Castro MD at [facility] Musculoskeletal Transplant [id number] 11/04/2028 [id number] / [id number] / Musculoskeletal Transplant Graft Bone Spacer Cortical Cancellous Cerv Frzn 7x12.5x15mm [id number] - [id number] - [id number] Implanted:Qty: 1 on 09/08/2024 by Gregorio Castro MD at [facility] Musculoskeletal Transplant [id number] 11/04/2028 [id number] / [id number] / [employer] Plate Spine Anterior Cervical Level 2 1.9 Hole Acp 38mm Titanium [id number] - [id number] Implanted:Qty: 1 on 09/08/2024 by Gregorio Castro MD at [facility] [id number] / / [employer] Screw Spinal Anterior Cervical Self Drilling Solid Acp 4.0x17mm [id number] - [id number] Implanted:Qty: 2 on 09/08/2024 by Gregorio Castro MD at [facility] Jott [id number] / / [employer] Screw Spinal Anterior Cervical Self Drilling Solid Acp 3.5x19mm [id number] - [id number] Implanted:Qty: 4 on 09/08/2024 by Gregorio Castro MD at [facility] [id number] / / Procedures Procedure Name Priority Date/Time Associated Diagnosis Comments XR SPINE CERVICAL 2 OR 3 VIEWS Schedule Routine, Read Routine (OP Routine) 10/22/2024 8:58 AM CDT S/P cervical spinal fusion XR SPINE CERVICAL 2 OR 3 VIEWS IP Routine 09/09/2024 12:50 AM CDT EGFR Routine 09/08/2024 11:10 PM CDT CBC WITHOUT DIFFERENTIAL Routine 09/08/2024 11:10 PM CDT BASIC METABOLIC PANEL Routine 09/08/2024 11:10 PM CDT EGFR STAT 09/08/2024 12:04 PM CDT BASIC METABOLIC PANEL STAT 09/08/2024 12:04 PM CDT CBC WITHOUT DIFFERENTIAL STAT 09/08/2024 12:04 PM CDT FL FLUOROSCOPY < 1 HOUR IP Routine 09/08/2024 11:02 AM CDT OK AN PROCEDURE PLACEHOLDER Routine 09/08/2024 7:53 AM CDT OK AN PROCEDURE PLACEHOLDER Routine 09/08/2024 7:53 AM CDT OK AN ELECTIVE ENDOTRACHEAL AIRWAY Routine 09/08/2024 7:53 AM CDT SPINAL CORD MONITORING 7:31 AM CDT Cervical spinal stenosis Cervical myelopathy (HCC) Case Notes 08/22@1212- Per Kiki via case msg needs to edit case- DMF Special Needs no titanium cage only structured allograft FUSION CERVICAL ANTERIOR DISCECTOMY WITH INSTRUMENTATION 09/08/2024 7:31 AM CDT Cervical spinal stenosis Cervical myelopathy (HCC) Case Notes 08/22@1212- Per Kiki via case msg needs to edit case- DMF Special Needs no titanium cage only structured allograft B CHECK SAMPLE STAT 09/08/2024 6:08 AM CDT EGFR Routine 08/27/2024 9:07 AM CDT Cervical spinal stenosis Cervical myelopathy (HCC) URINALYSIS, MICROSCOPIC ONLY Routine 08/27/2024 9:07 AM CDT Cervical spinal stenosis Cervical myelopathy (HCC) DIFFERENTIAL AUTO Routine 08/27/2024 9:0 7 AM CDT Cervical spinal stenosis Cervical myelopathy (HCC) PROTIME-INR Routine 08/27/2024 9:07 AM CDT Cervical spinal stenosis Cervical myelopathy (HCC) Elevated clotting time CBC WITH AUTO DIFFERENTIAL Routine 08/27/2024 9:07 AM CDT Cervical spinal stenosis Cervical myelopathy (HCC) VITAMIN D 25 HYDROXY Routine 08/27/2024 9:07 AM CDT Cervical spinal stenosis Cervical myelopathy (HCC) Vitamin D deficiency BASIC METABOLIC PANEL Routine 08/27/2024 9:07 AM CDT Cervical spinal stenosis Cervical myelopathy (HCC) CPAP APTT ALGORITHM Routine 08/27/2024 9 :07 AM CDT Preoperative testing TYPE AND SCREEN 14 DAY Routine 9:07 AM CDT Preoperative testing URINALYSIS AND REFLEX TO MICROSCOPIC AND CULTURE Routine 08/27/2024 9:07 AM CDT Cervical spinal stenosis Cervical myelopathy (HCC) ECG 12-LEAD Routine 08/27/2024 8:08 AM CDT Preoperative testing from Last 3 Months Results * XR Spine Cervical 2 or 3 Views (10/22/2024 8:58 AM CDT) Anatomical Region Laterality Modality Spine N/A Computed Radiogr aphy 10/22/2024 9:17 AM CDT Impressions 10/22/2024 9:17 AM CDT Anterior cervical discectomy and instrumented fusion from C4 through C6 in unchanged position. Electronically signed by: Madan Elizondo M.D. Narrative 10/22/2024 9:17 AM CDT EXAMINATION: XR SPINE CERVICAL 2 OR 3 VIEWS HISTORY: Cervical fusion. COMPARISON: 09/09/2024 FINDINGS: Postsurgical changes are again seen from anterior cervical discectomy and spine fusion from C4 through C6. Soft tissue gas has resolved. Soft tissue swelling is decreased. The drain has been removed. Instrumentation is intact. There is no evidence of acute fracture or significant prevertebral soft tissue swelling. Alignment is unchanged Procedure Note Madan Elizondo MD - 10/22/2024 EXAMINATION: XR SPINE CERVICAL 2 OR 3 VIEWS HISTORY: Cervical fusion. COMPARISON: 09/09/2024 FINDINGS: Postsurgical changes are again seen from anterior cervical discectomy and spine fusion from C4 through C6. Soft tissue gas has resolved. Soft tissue swelling is decreased. The drain has been removed. Instrumentation is intact. There is no evidence of acute fracture or significant prevertebral soft tissue swelling. Alignment is unchanged IMPRESSION: Anterior cervical discectomy and instrumented fusion from C4 through C6 in unchanged position. Electronically signed by: Madan Elizondo M.D. Gregorio Castro MD IMG XR PROCEDURES Final Result * XR Spine Cervical 2 or 3 Views (09/09/2024 12:50 AM CDT) Anatomical Region Laterality Modality Spine N/A Computed Radiogr aphy 09/09/2024 6:00 AM CDT Impressions 09/09/2024 6:00 AM CDT New anterior instrumented C4-C6 fusion in expected position. Electronically signed by: David Sullivan M.D. Narrative 09/09/2024 6:00 AM CDT XR SPINE CERVICAL 2 OR 3 VIEWS HISTORY: Cervical fusion. FINDINGS: 2 views of the cervical spine are obtained and compared with 06/10/2024. There is interval anterior discectomies and instrumented interbody fusions at C4-C6. Instrumentation is intact. Alignment is normal. Vertebral body heights are preserved. There is mild prevertebral soft tissue swelling and anterior surgical drain. Procedure Note David Sullivan MD - 09/09/2024 XR SPINE CERVICAL 2 OR 3 VIEWS HISTORY: Cervical fusion. FINDINGS: 2 views of the cervical spine are obtained and compared with 06/10/2024. There is interval anterior discectomies and instrumented interbody fusions at C4-C6. Instrumentation is intact. Alignment is normal. Vertebral body heights are preserved. There is mild prevertebral soft tissue swelling and anterior surgical drain. IMPRESSION: New anterior instrumented C4-C6 fusion in expected position. Electronically signed by: David Sullivan M.D. us Gregorio Castro MD IMG XR PROCEDURES Final Result * eGFR (09/08/2024 11:10 PM CDT) eGFR 82 >=60 mL/min/1. 73 m2 Comment: Interpretive Data Reference Interval Normal >/= 90 mL/min/1.73m2 Mildly decreased* 60 - 89 mL/min/1.73m2 Mildly to moderately decreased 45 - 59 mL/min/1.73m2 Moderately to severely decreased 30 - 44 mL/min/1.73m2 Severely decreased 15 - 29 mL/min/1.73m2 Kidney Failure < 15 mL/min/1.73m2 *Relative to young adult level Estimated glomerular filtration rate is determined by the 2020 CKD-EPI equation recommended by the National Kidney Foundation (A Unifying Approach to GFR Estimation: Recommendations of the NKF-ASK Task Force on Reassessing the Inclusion of Race in Diagnosing Kidney Disease, JASN 202). The CKD-EPI equation should not be used for patients with unstable renal function and has not been validated in children and those over 70. Current interpretive data was last reviewed 2021. Blood 09/08/2024 11:1 0 PM CDT 09/09/2024 12:34 AM CDT us Gregorio Castro MD LAB BLOOD ORDERABLES Final Resu lt [facility] Department [place] [address] * (ABNORMAL) CBC without differential (09/08/2024 11:10 PM CDT) [facility] WBC 8.43 3.80 - 9.90 K/cumm Hgb 11.6(L) 13.0 - 17.5 g/dL [facility] Hct 36.5(L) 38.9 - 50.3 % [facility] Plt 156 150 - 400 K/cumm [facility] MPV 11.3 9.1 - 12.3 fL [facility] RBC 4.46 4.30 - 5.80 M/cumm [facility] MCV 81.8 81.3 - 96.4 fL [facility] MCH 26.0(L) 27.1 - 33.3 pg [facility] MCHC 31.8(L) 32.3 - 35.7 g/dL [facility] RDW CV 14.4 11.1 - 14.9 % [facility] RDW SD 42.2 35.7 - 48.1 fL [facility] NRBC abs 0.00 0.00 - 0.01 K/cumm [facility] Blood 09/08/2024 11:1 0 PM CDT 09/09/2024 12:34 AM CDT us Gregorio Castro MD LAB BLOOD ORDERABLES Final Resu lt [facility] Department [place] [address] * Basic metabolic panel (09/08/2024 11:10 PM CDT) [facility] Sodium 143 135 - 145 mmol/L Potassium, pl 3.4 3.3 - 4.9 mmol/L [facility] Chloride 105 97 - 110 mmol/L [facility] CO2 29 22 - 32 mmol/L [facility] Anion gap 9 2 - 15 mmol/L [facility] BUN 16 6 - 25 mg/dL [facility] Creatinine 0.97 0.80 - 1.30 mg/dL [facility] Glucose 106 70 - 199 mg/dL [facility] Comment: Interpretive Data Fasting glucose >/= 126 mg/dl is diagnostic for diabetes. Fasting is defined as no caloric intake for at least 8 hours. Fasting glucose between 100 mg/dl to 125 mg/dl is diagnostic of prediabetes. In a patient with classic symptoms of hyperglycemia or hyperglycemic crisis, a random glucose >/= 200 mg/dl is diagnostic for diabetes. In the absence of unequivocal hyperglycemia, results should be confirmed by repeat testing. The classification and Diagnosis of Diabetes Diabetes Care 2021; 46: S19-S40. Current interpretive data was last revised 2022. Calcium 8.5 8.5 - 10.3 mg/dL [facility] Blood 09/08/2024 11:1 0 PM CDT 09/09/2024 12:34 AM CDT us Gregorio Castro MD LAB BLOOD ORDERABLES Final Resu lt [facility] Department [place] [address] * eGFR (09/08/2024 12:04 PM CDT) eGFR 87 >=60 mL/min/1. 73 m2 Comment: Interpretive Data Reference Interval Normal >/= 90 mL/min/1.73m2 Mildly decreased* 60 - 89 mL/min/1.73m2 Mildly to moderately decreased 45 - 59 mL/min/1.73m2 Moderately to severely decreased 30 - 44 mL/min/1.73m2 Severely decreased 15 - 29 mL/min/1.73m2 Kidney Failure < 15 mL/min/1.73m2 *Relative to young adult level Estimated glomerular filtration rate is determined by the 2020 CKD-EPI equation recommended by the National Kidney Foundation (A Unifying Approach to GFR Estimation: Recommendations of the NKF-ASK Task Force on Reassessing the Inclusion of Race in Diagnosing Kidney Disease, JASN 2020). The CKD-EPI equation should not be used for patients with unstable renal function and has not been validated in children and those over 70. Current interpretive data was last reviewed 2021. Blood 09/08/2024 12:0 4 PM CDT 09/08/2024 12:20 PM CDT Gregorio Castro MD LAB BLOOD ORDERABLES Final Resu lt Performing Organization Address [facility] Co de Phone Number [facility] Department [place] [address] * (ABNORMAL) CBC without differential (09/08/2024 12:04 PM CDT) WBC 7.60 3.80 - 9.90 K/cumm Hgb 11.9(L) 13.0 - 17.5 g/dL [facility] Hct 36.7(L) 38.9 - 50.3 % [facility] Plt 143(L) 150 - 400 K/cumm [facility] MPV 11.1 9.1 - 12.3 fL [facility] RBC 4.53 4.30 - 5.80 M/cumm [facility] MCV 81.0(L) 81.3 - 96.4 fL [facility] MCH 26.3(L) 27.1 - 33.3 pg [facility] MCHC 32.4 32.3 - 35.7 g/dL [facility] RDW CV 14.3 11.1 - 14.9 % [facility] RDW SD 42.1 35.7 - 48.1 fL [facility] NRBC abs 0.00 0.00 - 0.01 K/cumm [facility] Blood 09/08/2024 12:0 4 PM CDT 09/08/2024 12:20 PM CDT Gregorio Castro MD LAB BLOOD ORDERABLES Final Resu lt Performing Organization Address City/[facility]/ZIP Co de Phone Number [facility] Department [place] [address] * Basic metabolic panel (09/08/2024 12:04 PM CDT) Sodium 140 135 - 145 mmol/L Potassium, pl 3.4 3.3 - 4.9 mmol/L [facility] Comment:Hemolyzed; Potassium value may be falsely elevated by as much as 0.3-0.5 mmol/L. Suggest redraw and reanalysis. Chloride 100 97 - 110 mmol/L [facility] CO2 28 22 - 32 mmol/L [facility] Anion gap 12 2 - 15 mmol/L [facility] BUN 22 6 - 25 mg/dL [facility] Creatinine 0.92 0.80 - 1.30 mg/dL [facility] Glucose 117 70 - 199 mg/dL [facility] Comment: Interpretive Data Fasting glucose >/= 126 mg/dl is diagnostic for diabetes. Fasting is defined as no caloric intake for at least 8 hours. Fasting glucose between 100 mg/dl to 125 mg/dl is diagnostic of prediabetes. In a patient with classic symptoms of hyperglycemia or hyperglycemic crisis, a random glucose >/= 200 mg/dl is diagnostic for diabetes. In the absence of unequivocal hyperglycemia, results should be confirmed by repeat testing. The classification and Diagnosis of Diabetes Diabetes Care 2021; 46: S19-S40. Current interpretive data was last revised 2022. Calcium 8.7 8.5 - 10.3 mg/dL [facility] Blood 09/08/2024 12:0 4 PM CDT 09/08/2024 12:20 PM CDT Gregorio Castro MD LAB BLOOD ORDERABLES Final Resu lt Performing Organization Address City/[facility]/ZIP Co de Phone Number [facility] Department [place] [address] * [place] Fluoroscopy < 1 Hour (09/08/2024 11:02 AM CDT) Narrative [facility] - 09/08/2024 11:07 AM CDT The images from this study are not interpreted by Radiology. Please refer to the physician's procedure / OR operative note. Gregorio Castro MD IMG FLUOROSCOPY PROCEDURES Mireille l Result Performing Organization Address City/[facility]/ZIP Co de Phone Number [facility] * OK AN PROCEDURE PLACEHOLDER (09/08/2024 7:53 AM CDT) Sarah Sutherland CRNA - 09/08/2024 7:53 AM CDT Sarah Garcia CRNA 09/08/2024 7:54 AM Peripheral IV Catheter Patient location: OR Staff: Placed by: ROMMEL: Sarah Garcia CRNA Preprocedure prep: Prep solution: chlorhexadine PPE: gloves and provider hat/mask PIV line: Laterality: left Site: hand Catheter size: 18 g Technique: direct visualization Procedure details: good blood return Number of attempts: 1 Additional comments: Inserted by Eduardo hickman CRNA Arnoldo Rodrigues MD ANESTHESIA ORDERABLES Fi nal Result * OK AN ELECTIVE ENDOTRACHEAL AIRWAY, [place] AN PROCEDURE PLACEHOLDER (09/08/2024 7:53 AM CDT) Sarah Sutherland CRNA - 09/08/2024 7:53 AM CDT Sarah Garcia CRNA 09/08/2024 7:53 AM Airway Patient location: OR Urgency: elective Indications for airway management: anesthesia Difficult airway: no Staff: Placed by: ROMMEL: Sarah Garcia CRNA Emergent airway documentation: Risks and benefits discussed: yes Consent obtained: yes Consent given by: patient Airway prep: Preoxygenated: yes Patient position: sniffing MILS maintained throughout: yes Mask difficulty assessment: 0 - not attempted Spontaneous ventilation during airway: absent Sedation level during airway: GA Final airway details: Final airway type: endotracheal airway Tube type: ETT ETT size: 7.5 mm Cuffed: yes Technique used for successful ETT placement: video laryngoscopy Devices/Methods used in placement: stylet Insertion site: oral Video blade type: Maldonado Blade size: 4 Cormack-Lehane (video): grade IIa - partial view of glottis Cuff volume: 7 mL Cuff inflated with: air ETT to lips: 24 cm Placement verified by: auscultation and CO2 detection Airway secured with: silk tape Number of attempts: 1 Arnoldo Rodrigues MD ANESTHESIA ORDERABLES Fi nal Result * Check Sample (09/08/2024 6:08 AM CDT) ABO Rh O Positive [facility] OTHER 09/08/2024 6:08 AM CDT 09/08/2024 6:15 AM CDT Gregorio Castro MD LAB BLOOD ORDERABLES Final Resu lt Performing Organization Address [facility]/ZIP Co de Phone Number [facility] Department [place] [address] [facility] * TYPE AND SCREEN 14 DAY (08/27/2024 9:07 AM CDT) Oralia, indirect Negative ABO Rh O Positive [facility] Blood 08/27/2024 9:07 AM CDT 08/27/2024 9:27 AM CDT Narrative [facility] - 08/27/2024 10:30 AM CDT Is this test being ordered in advance for a procedure?->Yes Expected date of procedure:->09/08/24 Has the patient been transfused in the past 3 months?->No Cinthia Tillman NP LAB BLOOD BANK TEST ORDERABLE S Final Result Performing Organization Address [facility] Co de Phone Number [facility] Department [place] [address] * eGFR (08/27/2024 9:07 AM CDT) eGFR 60 >=60 mL/min/1. 73 m2 Comment: Interpretive Data Reference Interval Normal >/= 90 mL/min/1.73m2 Mildly decreased* 60 - 89 mL/min/1.73m2 Mildly to moderately decreased 45 - 59 mL/min/1.73m2 Moderately to severely decreased 30 - 44 mL/min/1.73m2 Severely decreased 15 - 29 mL/min/1.73m2 Kidney Failure < 15 mL/min/1.73m2 *Relative to young adult level Estimated glomerular filtration rate is determined by the 2020 CKD-EPI equation recommended by the National Kidney [employer] (A Unifying Approach to GFR Estimation: Recommendations of the NKF-ASK Task Force on Reassessing the Inclusion of Race in Diagnosing Kidney Disease, JASN 202). The CKD-EPI equation should not be used for patients with unstable renal function and has not been validated in children and those over 70. Current interpretive data was last reviewed 2021. Blood 08/27/2024 9:07 AM CDT 08/27/2024 9:39 AM CDT us Gregorio Castro MD LAB BLOOD ORDERABLES Final Resu lt [facility] Department [place] [address] * (ABNORMAL) Differential, auto (08/27/2024 9:07 AM CDT) Neutrophil abs 4.82 1.50 - 6.50 K/cumm Imm gran abs 0.03 0.00 - 0.10 K/cumm [facility] Lymphocyte abs 1.39 0.80 - 3.30 K/cumm [facility] Monocyte abs 0.81(H) 0.20 - 0.80 K/cumm [facility] Eosinophil abs 0.37 0.00 - 0.50 K/cumm [facility] Basophil abs 0.05 0.00 - 0.10 K/cumm [facility] Neutrophil pct 64.5 % [facility] Comment: Interpretive Data Percent cell count reference ranges are not reported, since discordance with absolute values may lead to misinterpretation of CBC data. Current Interpretive Data was last revised on 2017. Imm gran pct 0.4 % [facility] Comment: Interpretive Data Percent cell count reference ranges are not reported, since discordance with absolute values may lead to misinterpretation of CBC data. Current Interpretive Data was last revised on 2017. Lymphocyte pct 18.6 % [facility] Comment: Interpretive Data Percent cell count reference ranges are not reported, since discordance with absolute values may lead to misinterpretation of CBC data. Current Interpretive Data was last revised on 2017. Monocyte pct 10.8 % [facility] Comment: Interpretive Data Percent cell count reference ranges are not reported, since discordance with absolute values may lead to misinterpretation of CBC data. Current Interpretive Data was last revised on 2017. Eosinophil pct 5.0 % [facility] Comment: Interpretive Data Percent cell count reference ranges are not reported, since discordance with absolute values may lead to misinterpretation of CBC data. Current Interpretive Data was last revised on 2017. Basophil pct 0.7 % [facility] Comment: Interpretive Data Percent cell count reference ranges are not reported, since discordance with absolute values may lead to misinterpretation of CBC data. Current Interpretive Data was last revised on 2017. Blood 08/27/2024 9:07 AM CDT 08/27/2024 9:21 AM CDT us Gregorio Castro MD LAB BLOOD ORDERABLES Final Resu lt Performing Organization Address [facility] Co de Phone Number [facility] Department [place] [address] * CPAP aPTT algorithm (08/27/2024 9:07 AM CDT) aPTT 32 28 - 38 sec Comment: Interpretive Data Heparin therapeutic range: 66.0 - 100.0 seconds. Range based on correlation with therapeutic heparin activity range of 0.3 - 0.7 Units/mL. Current interpretive data was last revised on 2022. Blood 08/27/2024 9:07 AM CDT 08/27/2024 9:20 AM CDT us Cinthia Tillman NP LAB BLOOD ORDERABLES Final Re sult Performing Organization Address [facility]/ZIP Co de Phone Number [facility] Department [place] [address] * (ABNORMAL) Urinalysis reflex to microscopic and culture Urine, clean voided (08/27/2024 9:07 AM CDT) Color, ur Straw Yellow Clarity, ur Clear Clear [facility] Specific gravity, ur 1.022 1.003 - 1.030 [facility] pH, urine 6.0 [facility] Comment: Interpretive Data U rine pH is affected by diet, medications, systemic acid-base disturbances, and renal tubular function. pH may affect urinary stone formation. For example, urine pH below 6.0 may help reduce the tendency for calcium phosphate stones and pH greater than 6.0 may reduce the tendency for uric acid stone formation. Source: [facility] Current Interpretive Data was last revised on 2017 Protein, ur ql Negative Negative [facility] Glucose, ur ql Negative Negative [facility] Ketones, ur Negative Negative [facility] Bilirubin, ur Negative Negative [facility] Blood, ur Trace(A) Negative [facility] Urobilinogen, ur <2.0 <2.0 mg/dL [facility] Nitrite, ur Negative Negative [facility] Leukocyte esterase, ur Negative Negative [facility] UA reflex comment Reflex to microscopic UA will be performed. [facility] Urine, clean voided 08/27/2024 9:07 AM CDT 08/27/2024 9:21 AM CDT us Gregorio Castro MD LAB MICROBIOLOGY - GENERAL SANDRA BARRETT Final Result [facility] Department [place] [address] * (ABNORMAL) CBC with auto differential (08/27/2024 9:07 AM CDT) WBC 7.47 3.80 - 9.90 K/cumm Hgb 13.1 13.0 - 17.5 g/dL [facility] Hct 40.7 38.9 - 50.3 % [facility] Plt 203 150 - 400 K/cumm [facility] MPV 11.4 9.1 - 12.3 fL [facility] RBC 5.04 4.30 - 5.80 M/cumm [facility] MCV 80.8(L) 81.3 - 96.4 fL [facility] MCH 26.0(L) 27.1 - 33.3 pg [facility] MCHC 32.2(L) 32.3 - 35.7 g/dL [facility] RDW CV 14.5 11.1 - 14.9 % [facility] RDW SD 42.1 35.7 - 48.1 fL [facility] NRBC abs 0.00 0.00 - 0.01 K/cumm [facility] Blood 08/27/2024 9:07 AM CDT 08/27/2024 9:21 AM CDT Gregorio Castro MD LAB BLOOD ORDERABLES Final Resu lt [facility] [place] [address] * Vitamin D 25 hydroxy (08/27/2024 9:07 AM CDT) Vitamin D 25-OH 38 30 - 80 ng/mL Blood 08/27/2024 9:07 AM CDT 08/27/2024 9:21 AM CDT Gregorio Castro MD LAB BLOOD ORDERABLES Final Resu lt Performing Organization Address City/[facility]/ZIP Co de Phone Number [facility] Department [place] [address] * (ABNORMAL) Urinalysis, microscopic only (08/27/2024 9:07 AM CDT) WBC, ur 0-5 0 - 5 /HPF RBC, ur 6-10(A) 0 - 2 /HPF [facility] Mucous, ur Present(A) [facility] Culture Reflex Comment Reflex conditions for urine culture (WBC >10) not met. [facility] Urine, clean voided 08/27/2024 9:07 AM CDT 08/27/2024 9:21 AM CDT Gregorio Castro MD LAB URINE ORDERABLES Final Resu lt Performing Organization Address [facility] Phone Number [facility] Department [place] [address] * Protime-INR (08/27/2024 9:07 AM CDT) PT 12.0 9.7 - 13.0 sec INR 1.11 0.90 - 1.20 [facility] Comment: Interpretive data Oral anticoagulant therapeutic ranges: Venous thromboembolism prophylaxis or treatment: 2.0-3.0 CARDIOLOGY Standard range: 2.0-3.0 High-intensity range: 2.5-3.5 Refer to indication-specific guidelines for appropriate target ranges for prosthetic heart valve replacement. Current interpretive data was last revised on 2019. Blood 08/27/2024 9:07 AM CDT 08/27/2024 9:20 AM CDT Gregorio Castro MD LAB BLOOD ORDERABLES Final Resu Performing Organization Address [facility] Phone Number [facility] Department [place] [address] * Basic metabolic panel (08/27/2024 9:07 AM CDT) Sodium 143 135 - 145 mmol/L Potassium, pl 4.2 3.3 - 4.9 mmol/L [facility] Chloride 103 97 - 110 mmol/L [facility] CO2 30 22 - 32 mmol/L [facility] Anion gap 10 2 - 15 mmol/L [facility] BUN 25 6 - 25 mg/dL [facility] Creatinine 1.26 0.80 - 1.30 mg/dL [facility] Glucose 101 70 - 199 mg/dL [facility] Comment: Interpretive Data Fasting glucose >/= 126 mg/dl is diagnostic for diabetes. Fasting is defined as no caloric intake for at least 8 hours. Fasting glucose between 100 mg/dl to 125 mg/dl is diagnostic of prediabetes. In a patient with classic symptoms of hyperglycemia or hyperglycemic crisis, a random glucose >/= 200 mg/dl is diagnostic for diabetes. In the absence of unequivocal hyperglycemia, results should be confirmed by repeat testing. The classification and Diagnosis of Diabetes Diabetes Care 2021; 46: S19-S40. Current interpretive data was last revised 2022. Calcium 10.0 8.5 - 10.3 mg/dL [facility] Blood 08/27/2024 9:07 AM CDT 08/27/2024 9:21 AM CDT us Gregorio Castro MD LAB BLOOD ORDERABLES Final Resu lt [facility] [place] [address] * ECG 12 lead (08/27/2024 8:08 AM CDT) Ventricular Rate EKG/Min 57 BPM [facility] Atrial Rate [address] [facility] OK-Interval (MSEC) [address] [facility] QRS-Interval (MSEC) 88 ms [facility] QT-Interval (MSEC) 420 ms [facility] QTc [address] [facility] P [place] [address] [facility] R [place] -[address] [facility] T [place] [address] [facility] Diagnosis Sinus bradycardia Otherwise normal ECG No previous ECGs available Confirmed by KODI MCKEON M.D ([id number]) on 08/27/2024 9:13:53 AM [facility] 08/27/2024 8:08 AM CDT 08/27/2024 9:13 AM CDT us Cinthia Tillman NP ECG ORDERABLES Final Result [facility] from Last 3 Months Insurance [employer] MED[employer]ARE [facility] MEDICARE AET MEDICARE Advance Directives For more information, please contact: [phone] * Full Code (Latest Code Status on File) Date Activated Date Inactivated Comments 09/08/2024 1:30 PM 09/09/2024 5:19 PM Care Teams Advertising Traffic Manager Relationship Specialty Start Date End Date Diana Villa MD [address] [place] [address] PCP - General Internal Medicine 02/09/22
--- OUTSIDE RECORDS SUMMARY | 2024-11-20 15:42 | XMS_ITS | Clinical Summary ---
Author Organization [facility] Address [address] [place] [address] Care Team Providers Care Video Production Engineer Name Role Phone Diana Villa MD Primary Care Provider [phone] Madan Crocker MD Unavailable [phone] Allergies No known active allergies Medications [...] Myalgia 02/20/2016 Coronary artery disease invo lving [place] coronary artery of [place] heart without angina pectoris Overview (02/17/2016): AR and stenting Primary hypercholesterolemia Essential hypertension Hx [...] this topic Insurance [employer] MED[employer]ARE Care Teams Video Production Engineer Relationship Specialty Start Date End Date Diana Villa MD [address] [place] [id number] PCP - General INTERNAL MEDICINE 02/18/16 Madan Crocker MD [address] [place] [address] CARDIOVASCULAR DISEASE 02/18/16
== END 2024-11-20 15:39 | disposition home or self-care (01) ==
PROVIDERS: PCP Internal Medicine; Visit Provider Neurological Surgery
DX: G95.9 Disease of spinal cord, unspecified (principal); M48.02 Spinal stenosis, cervical region; M54.12 Radiculopathy, cervical region; Z98.1 Arthrodesis status; M43.02 Spondylolysis, cervical region
CPT/HCPCS: 72141